=== PATIENT | female | born 1985 | race Caucasian/White ===

== ENCOUNTER 2017-04-23 07:53 | Emergency (ER) | payer OTHER ==
[~2017-04-23] VITALS: Ht 167.6 cm; Wt 113.4 kg
[2017-04-23] MEDS ORDERED: fentaNYL INJECTION 100 MCG/2 ML AMP IVP ONE ×3 (08:15→11:00)
[2017-04-23 08:18] LABS: BILIRUBIN,URINE NEGATIVE (NEGATIVE); CLARITY,URINE VERY CLOUDY; COLOR,URINE YELLOW; GLUCOSE, URINE (UA) NEGATIVE (NEGATIVE); KETONES,URINE NEGATIVE (NEGATIVE); LEUKOCYTE ESTERASE ,URINE 3+ (NEGATIVE); NITRITE,URINE NEGATIVE (NEGATIVE); PH,URINE 5 (5-9); PROTEIN,URINE 2+ (NEGATIVE); UROBILINOGEN,URINE NORMAL (NORMAL)
[2017-04-23] MEDS ORDERED: ONDANSETRON 4 MG/2 ML (SDV) Z0FRAN IVP ONE (08:30)
[2017-04-23 08:31] LABS: BACTERIA,URINE LARGE /HPF
[2017-04-23] MEDS ORDERED: NS IV 1000 ML 1,000 ML IV ONE (08:56)
[2017-04-23 09:00] LABS: ALANINE AMINOTRANSFERASE 23 U/L (0-55); ALBUMIN 4.1 GM/DL (3.2-4.5); ALKALINE PHOSPHATASE 55 U/L (40-136); BASOPHILS % (AUTO) 0 % (0-10); BILIRUBIN,TOTAL 0.8 MG/DL (0.1-1.0); BUN/CREATININE RATIO 16; CALCIUM 9.3 MG/DL (8.5-10.1); CARBON DIOXIDE 16 MMOL/L (21-32); CHLORIDE 107 MMOL/L (98-107); CREATININE SERUM 0.76 MG/DL (0.60-1.30); EOSINOPHILS # (AUTO) 0.1 10^3/uL (0.0-0.3); EOSINOPHILS % (AUTO) 1 % (0-10); GFR ESTIMATED > 60; GLUCOSE 116 MG/DL (70-105); HEMATOCRIT 39 % (35-52); HEMOGLOBIN 12.7 G/DL (11.5-16.0); LYMPHOCYTES # (AUTO) 2.8 X 10^3 (1.0-4.0); LYMPHOCYTES % (AUTO) 24 % (12-44); MEAN CORPUSCULAR HEMOGLOBIN 30 PG (25-34); MEAN CORPUSCULAR HGB CONC 33 G/DL (32-36); MEAN CORPUSCULAR VOLUME 91 FL (80-99); MEAN PLATELET VOLUME 9.6 FL (7.4-10.4); MONOCYTES # (AUTO) 0.5 X 10^3 (0.0-1.0); MONOCYTES % (AUTO) 4 % (0-12); NEUTROPHILS # (AUTO) 8.2 X 10^3 (1.8-7.8); NEUTROPHILS % (AUTO) 71 % (42-75); PLATELET COUNT 380 10^3/uL (130-400); POTASSIUM 3.6 MMOL/L (3.6-5.0); RED BLOOD COUNT 4.26 10^6/uL (4.35-5.85); RED CELL DISTRIBUTION WIDTH 13.8 % (10.0-14.5); SODIUM 138 MMOL/L (135-145); TOTAL PROTEIN 7.4 GM/DL (6.4-8.2); WHITE BLOOD COUNT 11.5 10^3/uL (4.3-11.0)
[2017-04-23 09:10] LABS: SMEAR SCAN COMMENT YES
[2017-04-23] MEDS ORDERED: KETOROLAC 30 MG/ML VIAL IVP ONE (09:30)
[2017-04-23] MEDS ORDERED: OXYC-197 PO (09:43)
[2017-04-23] MEDS ORDERED: B6 (09:43)
[2017-04-23] MEDS ORDERED: AZAT50TA16 PO (09:43)
[2017-04-23] MEDS ORDERED: K2-D3 PO (09:43)
[2017-04-23] MEDS ORDERED: [UNRECOGNIZED DRUG - OTHER] (09:43)
[2017-04-23] MEDS ORDERED: OMEP20TA33 PO (09:45)
[2017-04-23] MEDS ORDERED: CNC1KV IJ (09:45)
[2017-04-23] MEDS ORDERED: DIPH25CA79 PO (09:45)
--- NOTE | 2017-04-23 09:49 | ED General ---
General Chief Complaint: Back Problems Stated Complaint: LOWER BACK PAIN Nursing Triage Note: c/o worsening right flank pain. Pt reported had a recent CT 1.5-2 weeks ago at [facility] and was told she has a small kidney stone. Nursing Sepsis Screen: No Definite Risk Source of Information: Patient Exam Limitations: No Limitations History of Present Illness Time Seen by Provider: 08:10 Initial Comments This 31-year-old young lady presents to the emergency room with significant right flank pain. She states a CT performed about 2 weeks ago at [facility] in [place] demonstrated a right kidney stone. It was not obstructing at that time. She also reports having diarrhea, nausea without vomiting. She is afebrile. She does have a history of Crohn's disease as well. She had a history of abnormal urinalysis at one point in time and was sent to nephrology by her associate genetics professor. Her cnc mill set up operator is Dr. Faye, her associate genetics professor is Dr. Adryan DO and her primary care providers Dr. Moreno. She denies hematuria or dysuria. Allergies and Home Medications Allergies Coded Allergies: Iodine and Iodide Containing Produc (Verified Allergy, Unknown, 04/23/17) Sulfa (Sulfonamide Antibiotics) (Verified Allergy, Unknown, 04/23/17) amoxicillin (Verified Allergy, Unknown, 04/23/17) cephalexin (Verified Allergy, Unknown, 04/23/17) clindamycin (Verified Allergy, Unknown, 04/23/17) latex (Verified Allergy, Unknown, 04/23/17) morphine (Verified Allergy, Unknown, 04/23/17) neomycin (Verified Allergy, Unknown, 04/23/17) shellfish derived (Verified Allergy, Unknown, 04/23/17) Uncoded Allergies: paper tape (Allergy, Unknown, rash, 04/23/17) Home Medications Azathioprine 50 Mg Tablet, 50 MG PO DAILY, (Reported) Ciprofloxacin HCl 500 Mg Tablet, 500 MG PO BID, #20 Prescribed by: NASEEM SHAH on 04/23/17 1040 Cyanocobalamin 1,000 Mcg/Ml Inj, 1,000 MCG IJ monthly, (Reported) Diphenhydramine HCl 25 Mg Capsule, 25 MG PO PRN, (Reported) Omeprazole Magnesium 20 Mg Tablet.dr, 20 MG PO DAILY, (Reported) Ondansetron 4 Mg Tab.rapdis, 4 MG SL Q4H PRN for NAUSEA/VOMITING-1ST LINE, #10 Prescribed by: NASEEM SHAH on 04/23/17 1040 Oxycodone HCl/Acetaminophen 1 Each Tablet, 1 EACH PO QID, (Reported) [B6 ] , 50 MG DAILY, (Reported) [K2-D3] , 10,000 PO DAILY, (Reported) [loestrine FE 28] , DAILY, (Reported) Constitutional: no symptoms reported EENTM: no symptoms reported Respiratory: no symptoms reported Cardiovascular: no symptoms reported Gastrointestinal: see HPI Genitourinary: see HPI : No Musculoskeletal: no symptoms reported Skin: no symptoms reported Psychiatric/Neurological: No Symptoms Reported Hematologic/Lymphatic: No Symptoms Reported Immunological/Allergic: no symptoms reported Past Ybedqbb-Jmfbpd-Pepymb Hx Patient Social History Alcohol Use: Denies Use Recreational Drug Use: No Smoking Status: Never a Smoker Recent Foreign Travel: No Contact w/Someone Who Travel: No Recent Infectious Disease Expo: No Surgeries History of Surgeries: Yes (colectomy/ostomy bag) Surgeries: Abdominal, Appendectomy, Gallbladder, Tonsillectomy Respiratory History of Respiratory Disorde: No Cardiovascular History of Cardiac Disorders: No Neurological History of Neurological Disord: No Reproductive System : No Genitourinary History of Genitourinary Disor: Yes Genitourinary Disorders: Kidney Stones Gastrointestinal History of Gastrointestinal Di: Yes Gastrointestinal Disorders: Crohns Disease Musculoskeletal History of Musculoskeletal Dis: No Endocrine History of Endocrine Disorders: No (Vitamin B12 deficiency) HEENT History of HEENT Disorders: No Cancer History of Cancer: No Psychosocial History of Psychiatric Problem: No Integumentary History of Skin or Integumenta: No Physical Exam Vital Signs Vital Sign - Last 12Hours 04/23/17 07:53 Temp 99.1 Pulse 112 Resp 18 B/P (MAP) 124/78 (93) Pulse Ox 99 O2 Delivery Room Air Capillary Refill : Less Than 3 Seconds General Appearance: WD/WN, Mild Distress HEENT: PERRL/EOMI, Normal ENT Inspection, Pharynx Normal Neck: Normal Inspection Respiratory: Lungs Clear, Normal Breath Sounds, No Accessory Muscle Use, No Respiratory Distress Cardiovascular: Regular Rate, Rhythm, No Edema, No Murmur, Normal Peripheral Pulses Gastrointestinal: Normal Bowel Sounds, Soft, Tenderness (Mild right flank) Back: Normal Inspection, CVA Tenderness (R) Extremity: Normal Inspection, No Pedal Edema Neurologic/Psychiatric: Alert, Oriented x3, No Motor/Sensory Deficits, Normal Mood/Affect, form designer II-XII Norm as Tested Skin: Normal Color, Warm/Dry Progress/Results/Core Measures Suspected Sepsis Recent Fever Within 48 Hours: No Infection Criteria Present: None New/Unexplained Altered Menta: No Sepsis Screen: No Definite Risk Sepsis Diagnosis: SIRS Temperature:99.2 Pulse: 112 Respiratory Rate: 18 Blood Pressure 124 /78 Mean: 93 Results/Orders Lab Results My Orders Medications Given in ED Vital Signs/I&O Capillary Refill : Less Than 3 Seconds Blood Pressure Mean: 93 Progress Note #1: Time: 09:44 Progress Note Labs and UA have been reviewed. Patient appears to have urinary tract infection. She reports fentanyl wasn't sufficient for pain management. Toradol was added for further treatment of pain. Patient had received fentanyl for initial pain management along with Zofran for nausea and IV fluids. Records were requested from [facility] in [place]. CT scan was reviewed. She had a 1 mm nonobstructing stone in the right kidney at that time. I discussed options for further workup with the patient. I felt it was appropriate to offer CT scan at this point as it is important to know if an obstructing stone is contributing to her urinary tract infection. If a ureteral stone is not present, then CT could evaluate other causes of pain as well. After discussion of risks and benefits, patient elects to have the CT scan. Progress Note #2: Progress Note CT scan was reviewed. It appears the right kidney stone has now dropped into the ureter. Patient was given fentanyl for additional pain management. She was prescribed antibiotics and instructed to follow-up with a urologist. She completed a liter of IV fluids. Diagnostic Imaging Diagonstic Imaging: CT Plain Films/CT/US/NM/MRI: abdomen, pelvis Comments CT abdomen and pelvis viewed by me and report reviewed. See report below: NAME: ROLO ORTIZ [facility] REC#: [id number] PT STATUS: REG ER : 1985 PHYSICIAN: NASEEM WORRELL MD ADMIT DATE: 04/23/17/ER Signed Date of Exam: 04/23/17 CT ABD/PELVIS WO(KIDNEY STONE) PROCEDURE: CT urinary tract, rule out kidney stone. TECHNIQUE: Multiple contiguous axial images were obtained through the abdomen and pelvis without the use of intravenous contrast. INDICATION: Right flank pain FINDINGS: There is a tiny roughly 1.4 mm stone in the distal right ureter at the level of the UVJ. Urinary bladder is decompressed. This calculus results in only slight ureteral ectasia and minimal hydronephrosis. No additional intrarenal stone burden is found. The left kidney unobstructed and negative. Hepatic steatosis and previous cholecystectomy noted no pathological biliary dilatation. Spleen, adrenals and pancreas negative. Aorta is nonaneurysmal. There is no bowel obstruction. The appendix surgically absent. There is a right lower quadrant diverting ostomy. The uterus and adnexa unremarkable. No ascites/ IMPRESSION: Tiny 1.4 mm right ureteral stone at the level of the UVJ results in minimal upstream hydroureteronephrosis. No additional acute finding. Dictated by: Dictated on workstation # [id number] Dict: 04/23/17 1000 Trans: 04/23/17 1024 Interpreted by: LULY WHITNEY Electronically signed by: LULY WHITNEY 04/23/17 1024 Departure Impression Impression: Primary Impression: Right ureteral stone Additional Impressions: Urinary tract infection Qualified Codes: N39.0 - Urinary tract infection, site not specified Nausea Right sided abdominal pain Disposition: HOME, SELF-CARE Condition: Improved Departure-Patient Inst. Decision time for Depature: 10:30 Referrals: NO,LOCAL PHYSICIAN (PCP) Primary Care Physician Patient Instructions: Kidney Stones in Adults, Urinary Tract Infection, Adult ( DC) Add. Discharge Instructions: Drink plenty of clear liquids. Complete your antibiotic as prescribed. Follow- up with your primary care provider and/or a urologist as soon as possible. Call tomorrow morning to arrange follow-up. You may use your Percocet as previously prescribed for pain management. Use Zofran (ondansetron) as prescribed for nausea and vomiting. Strain your urine and bring any stones collected to your follow-up appointment. Return to care if symptoms worsen. All discharge instructions reviewed with patient and/or family. Voiced understanding. Scripts Ciprofloxacin HCl (Cipro) 500 Mg Tablet 500 MG PO BID, #20 TAB Prov: NASEEM WORRELL MD 04/23/17 Ondansetron (Zofran Odt) 4 Mg Tab.rapdis 4 MG SL Q4H Y for NAUSEA/VOMITING-1ST LINE, #10 TAB Prov: NASEEM WORRELL MD 04/23/17 Copy Copies To 1: ROBER MORENO MD, JOSHUA T MD Apr 23, 2017 09:49
--- NOTE | 2017-04-23 10:07 | Diagnostic Imaging Report ---
PROCEDURE: CT urinary tract, rule out kidney stone. TECHNIQUE: Multiple contiguous axial images were obtained through the abdomen and pelvis without the use of intravenous contrast. INDICATION: Right flank pain FINDINGS: There is a tiny roughly 1.4 mm stone in the distal right ureter at the level of the UVJ. Urinary bladder is decompressed. This calculus results in only slight ureteral ectasia and minimal hydronephrosis. No additional intrarenal stone burden is found. The left kidney unobstructed and negative. Hepatic steatosis and previous cholecystectomy noted no pathological biliary dilatation. Spleen, adrenals and pancreas negative. Aorta is nonaneurysmal. There is no bowel obstruction. The appendix surgically absent. There is a right lower quadrant diverting ostomy. The uterus and adnexa unremarkable. No ascites/ IMPRESSION: Tiny 1.4 mm right ureteral stone at the level of the UVJ results in minimal upstream hydroureteronephrosis. No additional acute finding. Dictated by: Dictated on workstation # [id number]
[2017-04-23] MEDS ORDERED: CIPR-225 PO (10:40)
[2017-04-23] MEDS ORDERED: ONDA4TAB8 SL (10:40)
--- NOTE | 2017-04-23 11:09 | Diagnostic Imaging Report ---
INDICATION: Right flank pain Minute subtle right hemipelvic calcification of around 1.3 mm transverse diameter is at the level of the tiny UVJ stone better visualized at earlier CT. There is a nonobstructive bowel gas pattern. IMPRESSION: Tiny right pelvic calcification is believed radiographically visualized but very subtle. Dictated by: Dictated on workstation # [id number]
[2017-04-23 11:35] VITALS: BP 126/72
== END 2017-04-23 11:35 | disposition home or self-care (01) ==
LOC: ER 07:56
DX: N20.1 Calculus of ureter (principal); N39.0 Urinary tract infection, site not specified; Z90.49 Acquired absence of other specified parts of digestive tract; Z90.89 Acquired absence of other organs; Z87.442 Personal history of urinary calculi
CPT/HCPCS: 36415; 74018; 74176; 80053; 81000; 84703; 85025; 87088

== ENCOUNTER → 2017-06-25 | Outpatient (CLI) | payer OTHER ==
[~2017-06-25] MED LIST: AZAT50TA16 PO; B6; CIPR-225 PO; CNC1KV IJ; DIPH25CA79 PO; K2-D3 PO; OMEP20TA33 PO; ONDA4TAB8 SL; OXYC-197 PO; [UNRECOGNIZED DRUG - OTHER]
--- NOTE | 2017-06-25 11:40 | Diagnostic Imaging Report ---
INDICATION: Pelvic pressure. TECHNIQUE: Transabdominal and transvaginal sonography was performed. FINDINGS: The uterus measures 7.4 x 3.5 x 3.4 cm. The endometrium is 5 mm in thickness. No uterine mass is identified. The right ovary measures 5.0 x 1.3 x 2.3 cm and the left ovary measures 6.3 x 2.7 x 3.2 cm. There is a simple cyst involving the left ovary measuring 3.4 x 3.2 x 1.9 cm. There is blood flow to both ovaries. No free fluid is seen. IMPRESSION: 3.4 cm left ovarian cyst. The study is otherwise unremarkable. Dictated by: Dictated on workstation # [id number]
== END ==
LOC: RAD 10:32
PROVIDERS: ATTEND Obstetrics & Gynecology
DX: N83.202 Unspecified ovarian cyst, left side (principal)
CPT/HCPCS: 76830; 76856

== ENCOUNTER → 2018-04-02 | Outpatient (CLI) | payer MEDICARE, OTHER ==
[~2018-04-02] MED LIST changes: -OXYC-197 PO; +OXYC1TAB87 PO
--- NOTE | 2018-04-02 18:12 | Diagnostic Imaging Report ---
EXAMINATION: Ultrasound of the left breast. INDICATION: Left breast mass. There are no prior studies available for comparison. At this time, the patient does complain of a palpable abnormality in the retroareolar region of the left breast. FINDINGS: In the area of concern, there is a well-defined 2.3 x 1.6 x 1.6 cm solid mass with a small amount of internal blood flow. In a patient of this age, I do suspect that this is a benign process such as a fibroadenoma. Even so, I would recommend that an ultrasound-guided biopsy be performed to establish a tissue diagnosis. Also, during the course of the exam, a small 1.0 x 0.5 x 0.8 cm benign-appearing cyst was identified in the 2:30 position of the breast approximately 5 cm from the nipple. There is no other abnormality identified. IMPRESSION: 1. There is a 2.3 x 1.6 x 1.6 cm solid mass in the area of the patient's palpable abnormality. This is most likely a benign process, but an ultrasound-guided biopsy would be recommended to exclude malignancy. 2. These results were discussed with Henrietta at Dr. Samaniego's office. ACR BI-RADS Category 4: Suspicious abnormality. Dictated by: Dictated on workstation # [id number]
== END ==
LOC: RAD 13:18
PROVIDERS: ATTEND Obstetrics & Gynecology
DX: N63.20 Unspecified lump in the left breast, unspecified quadrant (principal); N60.02 Solitary cyst of left breast
CPT/HCPCS: 76641

== ENCOUNTER → 2018-04-18 | Outpatient (CLI) | payer MEDICARE ==
[~2018-04-18] VITALS: Ht 162.6 cm; Wt 121.1 kg
[~2018-04-18] MED LIST changes: +LIDOCAINE 1% INJ 20 ML 20 ML VIAL INJ ONE; +LIDOCAINE 1% INJ 20 ML 20 ML VIAL ONE
--- NOTE | 2018-04-18 18:15 | Diagnostic Imaging Report ---
INDICATION: Left breast mass. Patient presents for ultrasound-guided biopsy. Patient was brought to the procedure room and placed on the table in the supine position. Ultrasound imaging of the left breast was performed to evaluate appropriate entry site. The skin of the outer left breast was prepped and draped in usual sterile fashion. Small amount of 1% lidocaine was utilized for local anesthesia. A 14-gauge Achieve needle was utilized. A total of 3 core biopsies through the macrolobulated solid mass at the 5 o'clock location of the left breast was performed. Marker clip was then deployed. Hemostasis was obtained using manual compression. Patient tolerated the procedure well and was sent for post procedure mammogram in satisfactory condition. IMPRESSION: Successful ultrasound-guided core biopsy of the left breast mass at the 5 o'clock location, as described. Pathology results are currently pending. Dictated by: Dictated on workstation # [id number]
--- NOTE | 2018-04-18 20:12 | Diagnostic Imaging Report ---
INDICATION: Left breast mass, status post ultrasound-guided biopsy. EXAMINATION: 2D unilateral left CC and ML views were obtained. FINDINGS: A localizer clip is located within the mass in the lower left breast status post recent biopsy. IMPRESSION: Localizer clip is located within the mass. Pathology results are pending. Dictated by: Dictated on workstation # [id number]
== END ==
LOC: RAD 09:38
PROVIDERS: ATTEND Obstetrics & Gynecology
DX: D24.2 Benign neoplasm of left breast (principal); N63.20 Unspecified lump in the left breast, unspecified quadrant; N60.02 Solitary cyst of left breast
CPT/HCPCS: 19083; 88305

== ENCOUNTER → 2018-06-04 | Outpatient (CLI) | payer BC ==
[~2018-06-04] MED LIST changes: -LIDOCAINE 1% INJ 20 ML 20 ML VIAL INJ ONE; -LIDOCAINE 1% INJ 20 ML 20 ML VIAL ONE
[2018-06-04 10:43] LABS: BASOPHILS % (AUTO) 0 % (0-10); EOSINOPHILS # (AUTO) 0.1 10^3/uL (0.0-0.3); EOSINOPHILS % (AUTO) 1 % (0-10); HEMATOCRIT 42 % (35-52); HEMOGLOBIN 13.6 G/DL (11.5-16.0); LYMPHOCYTES # (AUTO) 2.9 X 10^3 (1.0-4.0); LYMPHOCYTES % (AUTO) 32 % (12-44); MEAN CORPUSCULAR HEMOGLOBIN 30 PG (25-34); MEAN CORPUSCULAR HGB CONC 33 G/DL (32-36); MEAN CORPUSCULAR VOLUME 91 FL (80-99); MEAN PLATELET VOLUME 9.3 FL (7.4-10.4); MONOCYTES # (AUTO) 0.4 X 10^3 (0.0-1.0); MONOCYTES % (AUTO) 5 % (0-12); NEUTROPHILS # (AUTO) 5.5 X 10^3 (1.8-7.8); NEUTROPHILS % (AUTO) 61 % (42-75); PLATELET COUNT 371 10^3/uL (130-400); RED CELL DISTRIBUTION WIDTH 13.9 % (10.0-14.5); WHITE BLOOD COUNT 8.9 10^3/uL (4.3-11.0)
[2018-06-04 11:01] LABS: ALANINE AMINOTRANSFERASE 32 U/L (0-55); ALBUMIN 4.1 GM/DL (3.2-4.5); ALKALINE PHOSPHATASE 65 U/L (40-136); BILIRUBIN,TOTAL 0.6 MG/DL (0.1-1.0); BUN/CREATININE RATIO 16; CALCIUM 10.1 MG/DL (8.5-10.1); CARBON DIOXIDE 20 MMOL/L (21-32); CHLORIDE 108 MMOL/L (98-107); CREATININE SERUM 0.77 MG/DL (0.60-1.30); GFR ESTIMATED > 60; GLUCOSE 97 MG/DL (70-105); SODIUM 139 MMOL/L (135-145); TOTAL PROTEIN 7.4 GM/DL (6.4-8.2)
== END ==
LOC: LAB 10:14
PROVIDERS: ATTEND Internal Medicine Gastroenterology
DX: K50.90 Crohn's disease, unspecified, without complications (principal); R79.89 Other specified abnormal findings of blood chemistry
CPT/HCPCS: 36415; 80053; 85025

== ENCOUNTER → 2018-10-03 | Outpatient (CLI) | payer BC, MEDICARE ==
--- NOTE | 2018-10-03 12:02 | Diagnostic Imaging Report ---
EXAM: Ultrasound of the left breast, limited. INDICATION: Left breast mass FINDINGS: The previous left breast ultrasound exam performed on 04/02/2018 noted a 2.3 x 1.6 x 1.6 CM solid mass in the region of the patient's palpable abnormality in the retroareolar region of the left breast. This finding was subsequently biopsied on 04/18/2018 and the results of the biopsy revealed a benign fibroadenoma. The diagnostic mammogram prior to this study shows that the area in question appears stable. On this exam, that finding is again evident and does not appear to have changed adversely. There is a stereotactic clip within the central portion of the lesion. During the course of the study, a small 5 x 8 MM simple cyst is seen in the 2:30 position of the breast roughly 5 CM from the nipple. IMPRESSION: 1. The solid lesion in the retroareolar region of the left breast appears stable. A six-month followup ultrasound exam would be recommended for continued evaluation. ACR Category 3 ACR BI-RADS Category 3: Probably benign findings. Result letter will be mailed to the patient. Note: At least 10% of breast cancer is not imaged by mammography. Dictated by: Dictated on workstation # [id number]
--- NOTE | 2018-10-03 19:17 | Diagnostic Imaging Report ---
Unilateral diagnostic left mammogram. INDICATION: Left breast mass. The current study was also evaluated with a Computer Aided Detection (CAD) system. FINDINGS: The previous mammogram of 04/18/2018 noted a roughly 2 CM solid lesion in the 6 o'clock position of the left retroareolar region. There was a stereotactic clip within this lesion. 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 On this study that nodular density is again evident and does not appear to have changed significantly. The overall appearance of the left breast itself is stable. The fibroglandular tissue is heterogeneously dense. This does limit the sensitivity of this exam. There is no primary or secondary sign of malignancy noted. IMPRESSION: 1. The solid nodule in the retroareolar region of the left breast seen previously appears stable. There is no evidence for malignancy. 2. Ultrasound of left breast is pending for further study. ACR BI-RADS Category 0: Incomplete. (Needs additional imaging evaluation). Result letter will be mailed to the patient. Note: At least 10% of breast cancer is not imaged by mammography. Dictated by: Dictated on workstation # [id number]
== END ==
LOC: RAD 08:55
PROVIDERS: ATTEND Obstetrics & Gynecology
DX: N63.21 Unspecified lump in the left breast, upper outer quadrant (principal); N64.89 Other specified disorders of breast
CPT/HCPCS: 76642

== ENCOUNTER 2018-10-16 14:00 | Outpatient (CLI) | payer MEDICARE ==
[~2018-10-16] VITALS: Ht 162.6 cm; Wt 121.1 kg
[~2018-10-16 14:00] MED LIST changes: +MULT-141 PO
== END 2018-10-16 14:39 ==
LOC: PREOP 14:00
PROVIDERS: ATTEND Surgery
DX: Z01.818 Encounter for other preprocedural examination (principal)

== ENCOUNTER 2018-10-30 06:53 | Day surgery (SDC) | payer MEDICARE ==
[2018-10-30] VITALS (10 sets, daily range): BP systolic 13–138; BP diastolic 60–91
[~2018-10-30] VITALS: Ht 162.6 cm; Wt 121.1 kg
[2018-10-30] MEDS ORDERED: LACTATED RINGERS 1,000 ML IV PRN (07:07)
[2018-10-30] MEDS ORDERED: BUP/EPI 0.5% 1:200,000 (SENSORCAINE) 30 ML VIAL ONE (07:10)
[2018-10-30] MEDS ORDERED: LIDOCAINE PF 2% 5 ML (XYLOCAINE) VIAL ONE (07:12)
[2018-10-30] MEDS ORDERED: SEVOFLURANE (ULTANE) 15 ML INHAL SOLN ONE (07:12)
[2018-10-30] MEDS ORDERED: fentaNYL INJECTION 100 MCG/2 ML AMP ONE (07:12)
[2018-10-30] MEDS ORDERED: ONDANSETRON 4 MG/2 ML (SDV) Z0FRAN ONE ×2 (07:12→08:54)
[2018-10-30] MEDS ORDERED: proPOfol 200 MG/20 ML (DIPRIVAN) VIAL IV ONE (07:12)
[2018-10-30] MEDS ORDERED: MIDAZOLAM 2 MG/2 ML (VERSED) VIAL ONE (07:13)
[2018-10-30] MEDS ORDERED: FAMOTIDINE 20MG/2ML IV (PEPCID) ONE (07:20)
--- OUTSIDE RECORDS SUMMARY | 2018-10-30 07:29 | XMS REPORT | Clinical Summary ---
Author Author Admin, QIE Organization [facility] Address Unknown Phone Unavailable Allergies, Adverse Reactions, Alerts Allergy Name Reaction Description Start Date Severity Status Provider PAPER TAPE blisters Moderate Active Georgie Mehta SULFUR rash Moderate Active Merlene Elder SULFA hives Moderate Active Merlene Elder SHELLFISH rash, anaphylaxsis Critical Active Merlene Elder NEOMYCIN rash Mild Active Merlene Elder MORPHINE rash, itching Moderate Active Merlene Elder LATEX rash Mild Active Merlene Elder KEFLEX rash Mild Active Merlene Elder IODINE per Dr. Santana not advised to have iodine again Critical Active Merlene Elder CLINDAMYCIN HCL rash Mild Active Merlene Elder AMOXICILLIN hives, rash Moderate Active Merlene Elder Conditions or Problems Problem Name Problem Code Onset Date Status Entry Date Provider Comment Standard Description Annotate Pelvic Pain-Female Active Erma Das MD Medication List Medication Instructions Start Date Stop Date Generic Name NDC Status Provider Patient Instruction PRILOSEC OTC 20 MG ORAL TABLET DELAYED RELEASE daily OMEPRAZOLE MAGNESIUM 52482438506 Active Georgie Mehta Active DIPHENHYDRAMINE HCL 50 MG ORAL CAPSULE 1/2 tab daily DIPHENHYDRAMINE HCL 78191021244 Active Georgie Mehta Active CYANOCOBALAMIN 1000 MCG/ML INJECTION SOLUTION monthly CYANOCOBALAMIN 45348270435 Active Georgie Mehta Active SODIUM BICARBONATE 650 MG ORAL TABLET 1 po BID SODIUM BICARBONATE 93077632115 Active Georgie Mehta Active OXYCODONE-ACETAMINOPHEN 5-325 MG ORAL TABLET 3-4 tabs daily prn OXYCODONE-ACETAMINOPHEN 16015227639 Active Georgie Mehta Active B-6 50 MG ORAL TABLET 1 daily PYRIDOXINE HCL 87590608447 Active Georgie Mehta Active LO LOESTRIN FE TABLET 1 daily NORETHIN-ETH ESTRAD-FE BIPHAS TABS 41646121126 Active Georgie Mehta Active IMURAN 50 MG ORAL TABLET 1 tab daily AZATHIOPRINE 76014977310 Active Georgie Mehta Active Advance Directives Directive Description Start Date PERMISSION TO SHARE Vital Signs Date Name Value Unit Range Description blood pressure, diastolic, repeated by physician 96 BP diaz blood pressure, diastolic 96 mm[Hg] BP diaz blood pressure, systolic, repeated by physician 140 BP sys blood pressure, systolic 140 mm[Hg] BP sys height E&M 64 [in_us] Bdy height pulse rate E&M 100 /min Heart rate temperature E&M 99.3 [degF] Body temperature weight E&M 269 [lb_av] Weight Measured Diagnostic Results Date Name Value Unit Range Description Office Visit: new patient - Chemistry RBC, urine, dipstick 2+ protein, urine, by sulfasalicylic acid negative bilirubin, by Ictotest, urine negative Office Visit: new patient - Urinalysis urinalysis, routine Clean Catch nitrite, urine, semiquantitative negative urobilinogen, urine, semiquantitative (dipstick) 0.2 leukocyte esterase, urine, by dipstick trace appearance, urine clear urine color yellow specific gravity, urine 1.030 pH, urine, semiquantitative 5.0 protein, urine, semiquantitative (dipstick) negative glucose, urine, semiquantitative negative ketones, urine, by test strip negative bilirubin, urine negative Encounters Code Encounter Date Provider Facility [id number] Level 3 New Patient 19:38:15 CDT Erma Das MD [facility]
--- OUTSIDE RECORDS SUMMARY | 2018-10-30 07:29 | XMS REPORT | Clinical Summary ---
Author Author Admin, QIE Organization [facility] Address Unknown Phone Unavailable Allergies, Adverse Reactions, [...] ORAL TABLET DELAYED RELEASE daily OMEPRAZOLE MAGNESIUM 93082319592 Active Georgie Mehta Active DIPHENHYDRAMINE HCL 50 MG ORAL CAPSULE 1/2 tab daily DIPHENHYDRAMINE HCL 00668190244 Active Georgie Mehta Active CYANOCOBALAMIN 1000 MCG/ML INJECTION SOLUTION monthly CYANOCOBALAMIN 53503895971 Active Georgie Mehta Active SODIUM BICARBONATE 650 MG ORAL TABLET 1 po BID SODIUM BICARBONATE 85639621051 Active Georgie Mehta Active OXYCODONE-ACETAMINOPHEN 5-325 MG ORAL TABLET 3-4 tabs daily prn OXYCODONE-ACETAMINOPHEN 95437251277 Active Georgie Mehta Active B-6 50 MG ORAL TABLET 1 daily PYRIDOXINE HCL 12389696746 Active Georgie Mehta Active LO LOESTRIN FE TABLET 1 daily NORETHIN-ETH ESTRAD-FE BIPHAS TABS 36622368090 Active Georgie Mehta Active IMURAN 50 MG ORAL TABLET 1 tab daily AZATHIOPRINE 56094358398 Active Georgie Mehta Active Advance Directives Directive [...] negative Encounters Code Encounter Date Provider Facility CPT-62302 Level 3 New Patient 19:38:15 CDT Erma Das MD [facility]
[2018-10-30] MEDS ORDERED: FAMOTIDINE 20MG/2ML IV (PEPCID) IV ONE (07:30)
--- OUTSIDE RECORDS SUMMARY | 2018-10-30 07:30 | XMS REPORT | Clinical Summary ---
Author Author Admin, QIE Organization [facility] Address Unknown Phone Unavailable Allergies, Adverse [...] ORAL TABLET DELAYED RELEASE daily OMEPRAZOLE MAGNESIUM 82837749986 Active Georgie Mehta Active DIPHENHYDRAMINE HCL 50 MG ORAL CAPSULE 1/2 tab daily DIPHENHYDRAMINE HCL 10588702800 Active Georgie Mehta Active CYANOCOBALAMIN 1000 MCG/ML INJECTION SOLUTION monthly CYANOCOBALAMIN 69493436107 Active Georgie Mehta Active SODIUM BICARBONATE 650 MG ORAL TABLET 1 po BID SODIUM BICARBONATE 64535837666 Active Georgie Mehta Active OXYCODONE-ACETAMINOPHEN 5-325 MG ORAL TABLET 3-4 tabs daily prn OXYCODONE-ACETAMINOPHEN 56900058832 Active Georgie Mehta Active B-6 50 MG ORAL TABLET 1 daily PYRIDOXINE HCL 36452933151 Active Georgie Fontainevaez Active LO LOESTRIN FE TABLET 1 daily NORETHIN-ETH ESTRAD-FE BIPHAS TABS 71676424461 Active Georgie Mehta Active IMURAN 50 MG ORAL TABLET 1 tab daily AZATHIOPRINE 33281753468 Active Georgie Fontainevaez Active Vital Signs Date Name Value Unit Range [...] negative Encounters Code Encounter Date Provider Facility CPT-16102 Level 3 New Patient 19:38:15 CDT Erma Das MD [facility]
--- OUTSIDE RECORDS SUMMARY | 2018-10-30 07:30 | XMS REPORT | Clinical Summary ---
Author Author Admin, QIE Organization [facility] Address Unknown Phone Unavailable Allergies, [...] Merlene Elder AMOXICILLIN hives, rash Moderate Active Merleen Elder Conditions or Problems Problem Name Problem Code Onset Date Status Entry Date Provider Comment Standard Description Annotate Pelvic Pain-Female Active Erma Das MD Medication List Medication Instructions Start Date Stop Date Generic Name NDC Status Provider Patient Instruction PRILOSEC OTC 20 MG ORAL TABLET DELAYED RELEASE daily OMEPRAZOLE MAGNESIUM 68139719698 Active Georgie Mehta Active DIPHENHYDRAMINE HCL 50 MG ORAL CAPSULE 1/2 tab daily DIPHENHYDRAMINE HCL 09122665910 Active Georgie Mehta Active CYANOCOBALAMIN 1000 MCG/ML INJECTION SOLUTION monthly CYANOCOBALAMIN 56385101561 Active Georgie Mehta Active SODIUM BICARBONATE 650 MG ORAL TABLET 1 po BID SODIUM BICARBONATE 01461267125 Active Georgie Mehta Active OXYCODONE-ACETAMINOPHEN 5-325 MG ORAL TABLET 3-4 tabs daily prn OXYCODONE-ACETAMINOPHEN 20296218607 Active Georgie Mehta Active B-6 50 MG ORAL TABLET 1 daily PYRIDOXINE HCL 81271304633 Active Georgie Mehta Active LO LOESTRIN FE TABLET 1 daily NORETHIN-ETH ESTRAD-FE BIPHAS TABS 23369787801 Active Georgie Mehta Active IMURAN 50 MG ORAL TABLET 1 tab daily AZATHIOPRINE 34439146687 Active Georgie Mehta Active Advance Directives Directive [...] negative Encounters Code Encounter Date Provider Facility CPT-09178 Level 3 New Patient 19:38:15 CDT Erma Das MD [facility]
--- OUTSIDE RECORDS SUMMARY | 2018-10-30 07:30 | XMS REPORT | Clinical Summary ---
Author Author Admin, QIE Organization [facility] Address Unknown Phone Unavailable Allergies, Adverse Reactions, Alerts Allergy Name Reaction Description Start Date Severity Status Provider SULFUR rash Moderate Active Merlene Elder SULFA [...] Entry Date Provider Comment Standard Description Annotate Problems Unknown Active Medication List Medication Instructions Start Date Stop Date Generic Name NDC Status Provider Patient Instruction No Drug Therapy Prescribed - none known did ask Merlene Elder
--- OUTSIDE RECORDS SUMMARY | 2018-10-30 07:30 | XMS REPORT | Clinical Summary ---
Author Author Admin, QIE Organization [facility] Address Unknown Phone Unavailable Allergies, Adverse [...] ORAL TABLET DELAYED RELEASE daily OMEPRAZOLE MAGNESIUM 31165343468 Active Georgie Mehta Active DIPHENHYDRAMINE HCL 50 MG ORAL CAPSULE 1/2 tab daily DIPHENHYDRAMINE HCL 95234736314 Active Georgie Mehta Active CYANOCOBALAMIN 1000 MCG/ML INJECTION SOLUTION monthly CYANOCOBALAMIN 96565148863 Active Georgie Mehta Active SODIUM BICARBONATE 650 MG ORAL TABLET 1 po BID SODIUM BICARBONATE 60774569685 Active Georgie Mehta Active OXYCODONE-ACETAMINOPHEN 5-325 MG ORAL TABLET 3-4 tabs daily prn OXYCODONE-ACETAMINOPHEN 60048439265 Active Georgie Mehta Active B-6 50 MG ORAL TABLET 1 daily PYRIDOXINE HCL 90110041308 Active Georgie Mehta Active LO LOESTRIN FE TABLET 1 daily NORETHIN-ETH ESTRAD-FE BIPHAS TABS 34247582065 Active Georgie Mehta Active IMURAN 50 MG ORAL TABLET 1 tab daily AZATHIOPRINE 72467411715 Active Georgie Mehta Active Advance Directives Directive [...] negative Encounters Code Encounter Date Provider Facility [id number] Level 3 New Patient 19:38:15 CDT Erma Das MD [facility]
--- OUTSIDE RECORDS SUMMARY | 2018-10-30 07:30 | XMS REPORT | Clinical Summary ---
Author Author Admin, QIE Organization [facility] Address Unknown Phone Unavailable Allergies, Adverse Reactions, [...] ORAL TABLET DELAYED RELEASE daily OMEPRAZOLE MAGNESIUM 51105373667 Active Georgie Mehta Active DIPHENHYDRAMINE HCL 50 MG ORAL CAPSULE 1/2 tab daily DIPHENHYDRAMINE HCL 96450903689 Active Georgie Mehta Active CYANOCOBALAMIN 1000 MCG/ML INJECTION SOLUTION monthly CYANOCOBALAMIN 27919809074 Active Georgie Mehta Active SODIUM BICARBONATE 650 MG ORAL TABLET 1 po BID SODIUM BICARBONATE 39294775458 Active Georgie Mehta Active OXYCODONE-ACETAMINOPHEN 5-325 MG ORAL TABLET 3-4 tabs daily prn OXYCODONE-ACETAMINOPHEN 66187521317 Active Georgie Mehta Active B-6 50 MG ORAL TABLET 1 daily PYRIDOXINE HCL 95170414369 Active Georgie Mehta Active LO LOESTRIN FE TABLET 1 daily NORETHIN-ETH ESTRAD-FE BIPHAS TABS 92863175341 Active Georgie Mehta Active IMURAN 50 MG ORAL TABLET 1 tab daily AZATHIOPRINE 58917939440 Active Georgie Mehta Active Advance Directives Directive [...] negative Encounters Code Encounter Date Provider Facility CPT-45361 Level 3 New Patient 19:38:15 CDT Erma Das MD [facility]
--- OUTSIDE RECORDS SUMMARY | 2018-10-30 07:30 | XMS REPORT | Clinical Summary ---
Author Author Admin, QIE Organization [facility] Address Unknown Phone Unavailable Allergies, Adverse [...] ORAL TABLET DELAYED RELEASE daily OMEPRAZOLE MAGNESIUM 49137141336 Active Georgie Mehta Active DIPHENHYDRAMINE HCL 50 MG ORAL CAPSULE 1/2 tab daily DIPHENHYDRAMINE HCL 68600747424 Active Georgie Mehta Active CYANOCOBALAMIN 1000 MCG/ML INJECTION SOLUTION monthly CYANOCOBALAMIN 23565030815 Active Georgie Mehta Active SODIUM BICARBONATE 650 MG ORAL TABLET 1 po BID SODIUM BICARBONATE 43444007524 Active Georgie Mehta Active OXYCODONE-ACETAMINOPHEN 5-325 MG ORAL TABLET 3-4 tabs daily prn OXYCODONE-ACETAMINOPHEN 35348993198 Active Georgie Mehta Active B-6 50 MG ORAL TABLET 1 daily PYRIDOXINE HCL 86884570629 Active Georgie Mehta Active LO LOESTRIN FE TABLET 1 daily NORETHIN-ETH ESTRAD-FE BIPHAS TABS 40574183704 Active Georgie Mehta Active IMURAN 50 MG ORAL TABLET 1 tab daily AZATHIOPRINE 15697665363 Active Georgie Mehta Active Advance Directives Directive [...] negative Encounters Code Encounter Date Provider Facility CPT-62773 Level 3 New Patient 19:38:15 CDT Erma Das MD [facility]
--- OUTSIDE RECORDS SUMMARY | 2018-10-30 07:31 | XMS REPORT | Continuity of Care Document ---
Author Organization Unknown Address Unknown Allergies Active Description Code Type Severity Reaction Onset Reported/Identified Relationship to Patient Clinical Status Yes amoxicillin [id number] Drug Allergy Unknown N/A 04/23/2017 Yes cephalexin [id number] Drug Allergy Unknown N/A 04/23/2017 Yes clindamycin [id number] Drug Allergy Unknown N/A 04/23/2017 Yes Iodine and Iodide Containing Produc [id number] Drug Allergy Unknown N/A 04/23/2017 Yes latex [id number] Drug Allergy Unknown N/A 04/23/2017 Yes morphine [id number] Drug Allergy Unknown N/A 04/23/2017 Yes neomycin [id number] Drug Allergy Unknown N/A 04/23/2017 Yes paper tape paper tape Unknown rash 04/23/2017 Yes shellfish derived [id number] Drug Allergy Unknown N/A 04/23/2017 Yes Sulfa (Sulfonamide Antibiotics) [id number] Drug Allergy Unknown N/A 04/23/2017 Medications There is no data. Problems Date Dx Coded Attending Type Code Diagnosis Diagnosed By 04/23/2017 GM MANNING, NASEEM Greene Ot N20.1 CALCULUS OF URETER 04/23/2017 NASEEM WORRELL MD, Ot N39.0 URINARY TRACT INFECTION, SITE NOT SPECIF 04/23/2017 NASEEM WORRELL MD, Ot R10.9 UNSPECIFIED ABDOMINAL PAIN 04/23/2017 NASEEM WORRELL MD, Ot Z87.442 PERSONAL HISTORY OF URINARY CALCULI 04/23/2017 NASEEM WORRELL MD, Ot Z90.49 ACQUIRED ABSENCE OF OTHER SPECIFIED PART 04/23/2017 NASEEM WORRELL MD, Ot Z90.89 ACQUIRED ABSENCE OF OTHER ORGANS 06/26/2017 ALEXANDRA FORMAN DO Ot N83.202 UNSPECIFIED OVARIAN CYST, LEFT SIDE 07/11/2017 ALEXANDRA FORMAN DO Ot N83.202 UNSPECIFIED OVARIAN CYST, LEFT SIDE 02/06/2018 Thiago MANNING, Erma Parks R10.2 Pelvic Pain-Female 04/02/2018 FENECH DO, ALEXANDRA S Ot N83.202 UNSPECIFIED OVARIAN CYST, LEFT SIDE 04/04/2018 FENECH DO, ALEXANDRA S Ot N60.02 SOLITARY CYST OF LEFT BREAST 04/04/2018 FENECH DO, ALEXANDRA S Ot N63.20 UNSPECIFIED LUMP IN THE LEFT BREAST, UNS 04/12/2018 FENECH DO, ALEXANDRA S Ot N60.02 SOLITARY CYST OF LEFT BREAST 04/12/2018 FENECH DO, ALEXANDRA S Ot N63.20 UNSPECIFIED LUMP IN THE LEFT BREAST, UNS 04/18/2018 FENECH DO, ALEXANDRA S Ot N60.02 SOLITARY CYST OF LEFT BREAST 04/18/2018 FENECH DO, ALEXANDRA S Ot N60.02 SOLITARY CYST OF LEFT BREAST 04/18/2018 FENECH DO, ALEXANDRA S Ot N63.20 UNSPECIFIED LUMP IN THE LEFT BREAST, UNS 05/07/2018 FENECH DO, ALEXANDRA S Ot D24.2 BENIGN NEOPLASM OF LEFT BREAST 05/07/2018 FENECH DO, ALEXANDRA S Ot N60.02 SOLITARY CYST OF LEFT BREAST 05/07/2018 FENECH DO, ALEXANDRA S Ot N63.20 UNSPECIFIED LUMP IN THE LEFT BREAST, UNS 05/17/2018 FENECH DO, ALEXANDRA S Ot D24.2 BENIGN NEOPLASM OF LEFT BREAST 05/17/2018 FENECH DO, ALEXANDRA S Ot N60.02 SOLITARY CYST OF LEFT BREAST 05/17/2018 FENECH DO, ALEXANDRA S Ot N63.20 UNSPECIFIED LUMP IN THE LEFT BREAST, UNS 06/05/2018 RONEY MACK DO Ot K50.90 CROHN'S DISEASE, UNSPECIFIED, WITHOUT CO 06/05/2018 RONEY MACK DO Ot R79.89 OTHER SPECIFIED ABNORMAL FINDINGS OF BLO 06/05/2018 RONEY MACK DO Ot K50.90 CROHN'S DISEASE, UNSPECIFIED, WITHOUT CO 06/05/2018 NATABARONEY GUTHRIE DO Ot R79.89 OTHER SPECIFIED ABNORMAL FINDINGS OF BLO 06/20/2018 NATABARONEY GUTHRIE DO Ot K50.90 CROHN'S DISEASE, UNSPECIFIED, WITHOUT CO 06/20/2018 NATABARONEY GUTHRIE DO Ot R79.89 OTHER SPECIFIED ABNORMAL FINDINGS OF BLO 07/18/2018 DEFFENBAUGH DO, RONEY Sloan Ot K50.90 CROHN'S DISEASE, UNSPECIFIED, WITHOUT CO 07/18/2018 MARTINA DORONEY Ot R79.89 OTHER SPECIFIED ABNORMAL FINDINGS OF BLO 08/15/2018 FENECH DO, ALEXANDRA S Ot N83.202 UNSPECIFIED OVARIAN CYST, LEFT SIDE 08/15/2018 FENECH DO, ALEXANDRA S Ot N60.02 SOLITARY CYST OF LEFT BREAST 08/15/2018 FENECH DO, ALEXANDRA S Ot N63.20 UNSPECIFIED LUMP IN THE LEFT BREAST, UNS 08/15/2018 FENECH DO, ALEXANDRA S Ot D24.2 BENIGN NEOPLASM OF LEFT BREAST 08/15/2018 FENECH DO, ALEXANDRA S Ot N60.02 SOLITARY CYST OF LEFT BREAST 08/15/2018 FENECH DO, ALEXANDRA S Ot N63.20 UNSPECIFIED LUMP IN THE LEFT BREAST, UNS 08/15/2018 NATABAJERRI DORONEY Ot K50.90 CROHN'S DISEASE, UNSPECIFIED, WITHOUT CO 08/15/2018 NATABAJERRI DORONEY Ot R79.89 OTHER SPECIFIED ABNORMAL FINDINGS OF BLO 08/15/2018 FENECH DO, ALEXANDRA S Ot N83.202 UNSPECIFIED OVARIAN CYST, LEFT SIDE 08/15/2018 FENECH DO, ALEXANDRA S Ot N60.02 SOLITARY CYST OF LEFT BREAST 08/15/2018 FENECH DO, ALEXANDRA S Ot N63.20 UNSPECIFIED LUMP IN THE LEFT BREAST, UNS 08/15/2018 FENECH DO, ALEXANDRA S Ot D24.2 BENIGN NEOPLASM OF LEFT BREAST 08/15/2018 FENECH DO, ALEXANDRA S Ot N60.02 SOLITARY CYST OF LEFT BREAST 08/15/2018 FENECH DO, ALEXANDRA S Ot N63.20 UNSPECIFIED LUMP IN THE LEFT BREAST, UNS 08/15/2018 NATABAJERRI DORONEY Ot K50.90 CROHN'S DISEASE, UNSPECIFIED, WITHOUT CO 08/15/2018 NATABAJERRI DORONEY Ot R79.89 OTHER SPECIFIED ABNORMAL FINDINGS OF BLO 08/16/2018 NATABAJERRI DORONEY Ot K50.90 CROHN'S DISEASE, UNSPECIFIED, WITHOUT CO 08/16/2018 YANNIFENBAJERRI DORONEY Ot R79.89 OTHER SPECIFIED ABNORMAL FINDINGS OF BLO 10/01/2018 FENECH DO, ALEXANDRA S Ot N83.202 UNSPECIFIED OVARIAN CYST, LEFT SIDE 10/01/2018 FENECH DO, ALEXANDRA S Ot N60.02 SOLITARY CYST OF LEFT BREAST 10/01/2018 FENECH DO, ALEXANDRA S Ot N63.20 UNSPECIFIED LUMP IN THE LEFT BREAST, UNS 10/01/2018 FENECH DO, ALEXANDRA S Ot D24.2 BENIGN NEOPLASM OF LEFT BREAST 10/01/2018 FENECH DO, ALEXANDRA S Ot N60.02 SOLITARY CYST OF LEFT BREAST 10/01/2018 FENECH DO, ALEXANDRA S Ot N63.20 UNSPECIFIED LUMP IN THE LEFT BREAST, UNS 10/01/2018 DEFFENBAUGH DORONEY Ot K50.90 CROHN'S DISEASE, UNSPECIFIED, WITHOUT CO 10/01/2018 YANNIFENBAJERRI DORONEY Ot R79.89 OTHER SPECIFIED ABNORMAL FINDINGS OF BLO 10/01/2018 FENECH DO, ALEXANDRA S Ot D24.2 BENIGN NEOPLASM OF LEFT BREAST 10/01/2018 FENECH DO, ALEXANDRA S Ot D24.2 BENIGN NEOPLASM OF LEFT BREAST 10/01/2018 FENECH DO, ALEXANDRA S Ot N83.202 UNSPECIFIED OVARIAN CYST, LEFT SIDE 10/01/2018 FENECH DO, ALEXANDRA S Ot N60.02 SOLITARY CYST OF LEFT BREAST 10/01/2018 FENECH DO, ALEXANDRA S Ot N63.20 UNSPECIFIED LUMP IN THE LEFT BREAST, UNS 10/01/2018 FENECH DO, ALEXANDRA S Ot D24.2 BENIGN NEOPLASM OF LEFT BREAST 10/01/2018 FENECH DO, ALEXANDRA S Ot N60.02 SOLITARY CYST OF LEFT BREAST 10/01/2018 FENECH DO, ALEXANDRA S Ot N63.20 UNSPECIFIED LUMP IN THE LEFT BREAST, UNS 10/01/2018 DEFFENBARONEY GUTHRIE DO Ot K50.90 CROHN'S DISEASE, UNSPECIFIED, WITHOUT CO 10/01/2018 MARTINA DORONEY Ot R79.89 OTHER SPECIFIED ABNORMAL FINDINGS OF BLO 10/01/2018 FENECH DO, ALEXANDRA S Ot D24.2 BENIGN NEOPLASM OF LEFT BREAST 10/01/2018 FENECH DO, ALEXANDRA S Ot D24.2 BENIGN NEOPLASM OF LEFT BREAST 10/02/2018 FENECH DO, ALEXANDRA S Ot D24.2 BENIGN NEOPLASM OF LEFT BREAST 10/03/2018 FENECH DO, ALEXANDRA S Ot N83.202 UNSPECIFIED OVARIAN CYST, LEFT SIDE 10/03/2018 ALEXANDRA FORMAN DO Ot N60.02 SOLITARY CYST OF LEFT BREAST 10/03/2018 ALEXANDRA FORMAN DO Ot N63.20 UNSPECIFIED LUMP IN THE LEFT BREAST, UNS 10/03/2018 ALEXANDRA FORMAN DO Ot D24.2 BENIGN NEOPLASM OF LEFT BREAST 10/03/2018 ALEXANDRA FORMAN DO Ot N60.02 SOLITARY CYST OF LEFT BREAST 10/03/2018 DASIA BETTS, ALEXANDRA Ulloa Ot N63.20 UNSPECIFIED LUMP IN THE LEFT BREAST, UNS 10/03/2018 RONEY MACK DO, Ot K50.90 CROHN'S DISEASE, UNSPECIFIED, WITHOUT CO 10/03/2018 RONEY MACK DO Ot R79.89 OTHER SPECIFIED ABNORMAL FINDINGS OF BLO 10/03/2018 ALEXANDRA FORMAN DO Ot D24.2 BENIGN NEOPLASM OF LEFT BREAST 10/03/2018 ALEXANDRA FORMAN DO Artemio Ot D24.2 BENIGN NEOPLASM OF LEFT BREAST 10/16/2018 TALYA GARY DO Ot Z01.818 ENCOUNTER FOR OTHER PREPROCEDURAL EXAMIN 10/16/2018 TALYA GARY DO Ot Z01.818 ENCOUNTER FOR OTHER PREPROCEDURAL EXAMIN 10/22/2018 TALYA GARY DO Ot Z01.818 ENCOUNTER FOR OTHER PREPROCEDURAL EXAMIN Procedures There is no data. Results Test Result Range Complete urinalysis with reflex to culture - 04/23/17 08:08 Urine color determination YELLOW NRG Urine clarity determination VERY CLOUDY NRG Urine pH measurement by test strip 5 5-9 Specific gravity of urine by test strip 1.030 1.016-1.022 Urine protein assay by test strip, semi-quantitative 2+ NEGATIVE Urine glucose detection by automated test strip NEGATIVE NEGATIVE Erythrocytes detection in urine sediment by light microscopy 3+ NEGATIVE Urine ketones detection by automated test strip NEGATIVE NEGATIVE Urine nitrite detection by test strip NEGATIVE NEGATIVE Urine total bilirubin detection by test strip NEGATIVE NEGATIVE Urine urobilinogen measurement by automated test strip (mass/volume) NORMAL NORMAL Urine leukocyte esterase detection by dipstick 3+ NEGATIVE Automated urine sediment erythrocyte count by microscopy (number/high power field) NONE NRG Automated urine sediment leukocyte count by microscopy (number/high power field) [HPF] NRG Bacteria detection in urine sediment by light microscopy LARGE NRG Crystals detection in urine sediment by light microscopy NONE NRG Casts detection in urine sediment by light microscopy NONE NRG Mucus detection in urine sediment by light microscopy MODERATE NRG Complete urinalysis with reflex to culture YES NR Bacterial urine culture - 04/23/17 08:08 URINE CULTURE RESULTS MORE THAN 3 [facility] Comprehensive metabolic panel - 04/23/17 08:30 Serum or plasma sodium measurement (moles/volume) 138 mmol/L 135-145 Serum or plasma potassium measurement (moles/volume) 3.6 mmol/L 3.6-5.0 Serum or plasma chloride measurement (moles/volume) 107 mmol/L 98-107 Carbon dioxide 16 mmol/L 21-32 Serum or plasma anion gap determination (moles/volume) 15 mmol/L 5-14 Serum or plasma urea nitrogen measurement (mass/volume) 12 mg/dL 7-18 Serum or plasma creatinine measurement (mass/volume) 0.76 mg/dL 0.60-1.30 Serum or plasma urea nitrogen/creatinine mass ratio 16 NRG Serum or plasma creatinine measurement with calculation of estimated glomerular filtration rate > NRG Serum or plasma glucose measurement (mass/volume) 116 mg/dL 70-105 Serum or plasma calcium measurement (mass/volume) 9.3 mg/dL 8.5-10.1 Serum or plasma total bilirubin measurement (mass/volume) 0.8 mg/dL 0.1-1.0 Serum or plasma alkaline phosphatase measurement (enzymatic activity/volume) 55 U/L 40-136 Serum or plasma aspartate aminotransferase measurement (enzymatic activity/volume) 27 U/L 5-34 Serum or plasma alanine aminotransferase measurement (enzymatic activity/volume) 23 U/L 0-55 Serum or plasma protein measurement (mass/volume) 7.4 g/dL 6.4-8.2 Serum or plasma albumin measurement (mass/volume) 4.1 g/dL 3.2-4.5 Serum or plasma choriogonadotropin ( test) detection - 04/23/17 08:30 Serum or plasma choriogonadotropin ( test) detection NEGATIVE NEGATIVE Complete blood count (CBC) with automated white blood cell (WBC) differential - 04/23/17 08:30 Blood leukocytes automated count (number/volume) 11.5 10*3/uL 4.3-11.0 Blood erythrocytes automated count (number/volume) 4.26 10*6/uL 4.35-5.85 Venous blood hemoglobin measurement (mass/volume) 12.7 g/dL 11.5-16.0 Blood hematocrit (volume fraction) 39 % 35-52 Automated erythrocyte mean corpuscular volume 91 [foz_us] 80-99 Automated erythrocyte mean corpuscular hemoglobin (mass per erythrocyte) 30 pg 25-34 Automated erythrocyte mean corpuscular hemoglobin concentration measurement (mass/volume) 33 g/dL 32-36 Automated erythrocyte distribution width ratio 13.8 % 10.0- 14.5 Automated blood platelet count (count/volume) 380 10*3/uL 130-400 Automated blood platelet mean volume measurement 9.6 [foz_us] 7.4-10.4 Automated blood neutrophils/100 leukocytes 71 % 42-75 Automated blood lymphocytes/100 leukocytes 24 % 12-44 Blood monocytes/100 leukocytes 4 % 0-12 Automated blood eosinophils/100 leukocytes 1 % 0-10 Automated blood basophils/100 leukocytes 0 % 0-10 Blood neutrophils automated count (number/volume) 8.2 10*3 1.8-7.8 Blood lymphocytes automated count (number/volume) 2.8 10*3 1.0-4.0 Blood monocytes automated count (number/volume) 0.5 10*3 0.0- 1.0 Automated eosinophil count 0.1 10*3/uL 0.0-0.3 Automated blood basophil count (count/volume) 0.0 10*3/uL 0.0-0.1 Blood blood smear finding identification by light microscopy YES NRG Complete blood count (CBC) with automated white blood cell (WBC) differential - 06/04/18 10:23 Blood leukocytes automated count (number/volume) 8.9 10*3/uL 4.3-11.0 Blood erythrocytes automated count (number/volume) 4.59 10*6/uL 4.35-5.85 Venous blood hemoglobin measurement (mass/volume) 13.6 g/dL 11.5-16.0 Blood hematocrit (volume fraction) 42 % 35-52 Automated erythrocyte mean corpuscular volume 91 [foz_us] 80-99 Automated erythrocyte mean corpuscular hemoglobin (mass per erythrocyte) 30 pg 25-34 Automated erythrocyte mean corpuscular hemoglobin concentration measurement (mass/volume) 33 g/dL 32-36 Automated erythrocyte distribution width ratio 13.9 % 10.0- 14.5 Automated blood platelet count (count/volume) 371 10*3/uL 130-400 Automated blood platelet mean volume measurement 9.3 [foz_us] 7.4-10.4 Automated blood neutrophils/100 leukocytes 61 % 42-75 Automated blood lymphocytes/100 leukocytes 32 % 12-44 Blood monocytes/100 leukocytes 5 % 0-12 Automated blood eosinophils/100 leukocytes 1 % 0-10 Automated blood basophils/100 leukocytes 0 % 0-10 Blood neutrophils automated count (number/volume) 5.5 10*3 1.8-7.8 Blood lymphocytes automated count (number/volume) 2.9 10*3 1.0-4.0 Blood monocytes automated count (number/volume) 0.4 10*3 0.0- 1.0 Automated eosinophil count 0.1 10*3/uL 0.0-0.3 Automated blood basophil count (count/volume) 0.0 10*3/uL 0.0-0.1 Comprehensive metabolic panel - 06/04/18 10:23 Serum or plasma sodium measurement (moles/volume) 139 mmol/L 135-145 Serum or plasma potassium measurement (moles/volume) 4.0 mmol/L 3.6-5.0 Serum or plasma chloride measurement (moles/volume) 108 mmol/L 98-107 Carbon dioxide 20 mmol/L 21-32 Serum or plasma anion gap determination (moles/volume) 11 mmol/L 5-14 Serum or plasma urea nitrogen measurement (mass/volume) 12 mg/dL 7-18 Serum or plasma creatinine measurement (mass/volume) 0.77 mg/dL 0.60-1.30 Serum or plasma urea nitrogen/creatinine mass ratio 16 NRG Serum or plasma creatinine measurement with calculation of estimated glomerular filtration rate > NRG Serum or plasma glucose measurement (mass/volume) 97 mg/dL 70-105 Serum or plasma calcium measurement (mass/volume) 10.1 mg/dL 8.5-10.1 Serum or plasma total bilirubin measurement (mass/volume) 0.6 mg/dL 0.1-1.0 Serum or plasma alkaline phosphatase measurement (enzymatic activity/volume) 65 U/L 40-136 Serum or plasma aspartate aminotransferase measurement (enzymatic activity/volume) 40 U/L 5-34 Serum or plasma alanine aminotransferase measurement (enzymatic activity/volume) 32 U/L 0-55 Serum or plasma protein measurement (mass/volume) 7.4 g/dL 6.4-8.2 Serum or plasma albumin measurement (mass/volume) 4.1 g/dL 3.2-4.5 CALCIUM CORRECTED 10.0 mg/dL 8.5-10.1 Encounters ACCT No. Visit Date/Time Discharge Status Pt. Type Provider Facility Loc./Unit Complaint [id number] 06/13/2018 19:41:00 ACT Unknown Erma Das MD [id number] 10/23/2018 09:05:00 10/23/2018 23:59:59 CLS Preadmit TALYA GARY DO [facility] SDC LEFT BREAST MASS [id number] 10/21/2018 14:14:00 10/21/2018 23:59:59 CLS Preadmit ALEXANDRA FORMAN DO [facility] REHAB CHRONIC BACK PAIN; MASTALGIA [id number] 10/16/2018 14:00:00 10/16/2018 14:39:00 DIS Outpatient TALYA GARY DO [facility] PREOP LEFT BREAST MASS [id number] 10/03/2018 08:55:00 10/03/2018 23:59:59 CLS Outpatient ALEXANDRA FORMAN DO [facility] RAD BREAST LUMP OF L SIDE [id number] 06/04/2018 10:14:00 06/04/2018 23:59:59 CLS Outpatient RONEY MACK DO [facility] LAB R79.89,K50.90 [id number] 04/18/2018 09:38:00 04/18/2018 23:59:59 CLS Outpatient ALEXANDRA FORMAN DO [facility] RAD CYST OF BREAST [id number] 04/02/2018 13:18:00 04/02/2018 23:59:59 CLS Outpatient ALEXANDRA FORMAN DO [facility] RAD CYST [id number] 06/20/2017 11:53:00 06/20/2017 23:59:59 CLS Outpatient ALEXANDRA FORMAN DO [facility] RAD R10.2 PELVIC PRESSURE [id number] 04/23/2017 07:56:00 04/23/2017 11:35:00 DIS Emergency GM MANNING, NASEEM Velasco [facility] ER LOWER BACK PAIN
[2018-10-30] MEDS ORDERED: DEXAMETHASONE 10 MG/ML (DECADRON) 1 ML VIAL ONE (07:32)
--- NOTE | 2018-10-30 08:20 | Progress Note-Pre Operative ---
Pre-Operative Progress Note H&P Reviewed The H&P was reviewed, patient examined and no changes noted. Time Seen by Provider: 08:10 Date H&P Reviewed: Oct 30, 2018 Time H&P Reviewed: 08:09 Pre-Operative Diagnosis: Left breast mass TALYA GARY DO Oct 30, 2018 08:20
[2018-10-30] MEDS ORDERED: ROCURONIUM 10 MG/ML 5 ML SYRINGE IV ONE (08:26)
[2018-10-30] MEDS ORDERED: SUCCINYLCHOLINE INJ 100 MG/5 ML SYR ONE (08:26)
[2018-10-30] MEDS ORDERED: NEOSTIGMINE 3 MG/3 ML VIAL ONE (09:06)
[2018-10-30] MEDS ORDERED: GLYCOPYRROLATE 0.2 MG/ML (ROBINUL) 2 ML VIAL ONE (09:06)
[2018-10-30] MEDS ORDERED: ONDANSETRON 4 MG/2 ML (SDV) Z0FRAN IVP PRN (09:15)
[2018-10-30] MEDS ORDERED: fentaNYL INJECTION 100 MCG/2 ML AMP IVP ONE (09:15)
[2018-10-30] MEDS ORDERED: PROMETHAZINE INJ 25 MG/ML (PHENERGAN) AMP IVP ONE (09:15)
[2018-10-30] MEDS: PROMETHAZINE INJ 25 MG/ML (PHENERGAN) AMP ONE ×2 (09:22→11:45)
--- NOTE | 2018-10-30 09:32 | Progress Note-Post Operative ---
Post-Operative Progess Note Surgeon (s)/Gravure Press Set Up Operator (s) Surgeon TALYA GARY DO Gravure Press Set Up Operator: none Pre-Operative Diagnosis Left breast mass Post-Operative Diagnosis same pending path Procedure & Operative Findings Date of Procedure 10/30/18 Procedure Performed/Findings Exc left breast mass Anesthesia Type Iv sedation by REACHER Estimated Blood Loss Estimated blood loss (mL): scant Specimens/Packing Specimens Removed left breast mass TALYA GARY DO Oct 30, 2018 09:32
--- NOTE | 2018-10-30 09:34 | Discharge Inst-Surgical ---
Discharge Inst-Surgical Depart Medication/Instructions New, Converted or Re-Newed RX: Other (Pt has home pain meds) Patient Instructions Follow up Appt: Make appointment for 1 week. [phone] Instructions: No lifting greater than 20 pounds. No strenuous activity. May shower in 24 hours, no tub bath or soaking. Use incentive spirometer at home as directed. No Smoking Skin/Wound Care: May remove bandages in am. You need to leave the Dermabond on incision it will fall off on it's own. Symptoms to Report: Appetite Changes, Extremity Discoloration, Numbness/Tingling, Swelling Increased, Bleeding Excessive, Eyesight Changes, Pain Increased, Urine Color Change, Constipation(Persistent), Fever over 101 degree F, Pain/Pressure in chest, Urinating Difficulty, Cough Up/Vomit Blood, Heart Beat Irreg/Pounding, Pain/Pressure in jaw, Cramps in feet or legs, Lightheadedness, Pain/Pressure in shoulder, Diarrhea(Persistent), Memory Changes Suddenly, Questions/Concerns, Weight gain consecutive days, Dizziness/Fainting, Nausea/Vomiting, Shortness of Breath, Weight gain over 2 pounds If questions or concerns contact your physician Or seek help at emergency department. Activity Activity as Tolerated: Yes Activity Instructions: Avoid Stress to Incision Driving Instructions: No Driving/Refer to Dr. Adams Discharge Diet: No Restrictions Diet After 24 Hours: Clear Liquid if Nauseous If Any Problems/Questions/Issu: Contact Your Physician, Go to Emergency Room Skin/Wound Care Infection Signs and Symptoms: Increased Redness, Foul Odor of Wound, Increased Drainage, Skin Itchy or Has a Rash, Increased Swelling, Temperature Above 101 F Wound Care Comment: Wear tight sports bra, for 24 hours a day next 7 days Bathing Instructions: Shower Operative Area Clean and Dry: You May Remove Bandage (in am) Ice Pack: Ice On and Off Site (if it helps with pain) TALYA GARY DO Oct 30, 2018 09:34
--- NOTE | 2018-10-30 10:03 | NUR ---
PT ARRIVED FROM PACU AWAKE, ALERT, VSS, AND C/O PAIN 10/30. CALLED DR. GARY AT 1007 AND RECIEVED VERBAL TELEPHONE ORDER TO GIVE PT PERCOCET, SAME DOSE SHE TAKES AT HOME, ONE TIME.
[2018-10-30] MEDS ORDERED: oxyCODONE/APAP 5/325MG (PERCOCET 5) TABLET PO ONE (10:15)
--- NOTE | 2018-10-30 12:46 | Anesthesia-General Post-Op ---
General Patient Condition Mental Status/LOC: Same as Preop Cardiovascular: Satisfactory Nausea/Vomiting: Absent Respiratory: Satisfactory Pain: Controlled Complications: Absent Post Op Complications Complications None Follow Up Care/Instructions Patient Instructions None needed. Anesthesia/Patient Condition Patient Condition Patient is doing well, no complaints, stable vital signs, no apparent adverse anesthesia problems. No complications reported per nursing. NICHOLAS PÉREZ CRNA Oct 30, 2018 12:46
--- NOTE | 2018-10-30 14:54 | OPERATIVE REPORT ---
DATE OF SERVICE: 10/30/2018 PREOPERATIVE DIAGNOSIS: Left breast mass. POSTOPERATIVE DIAGNOSIS: Left breast mass, pending pathology. PROCEDURE: Excision of left breast mass. SURGEON: John Lorenzo DO [facility] ADMINISTRATOR: None. ANESTHESIA: General endotracheal tube. SPECIMEN: Left breast mass. BLOOD LOSS: Scant. FLUIDS: Per anesthesia. POSTOPERATIVE CONDITION: Stable. INDICATION FOR PROCEDURE: The patient is a 32-year-old female, who had a left breast mass. 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 She is having a little bit of pain and did not want to get ultrasounds every 6 months to follow this and which she wanted removed. FINDINGS: The patient had left breast mass removed and sent to pathology. PROCEDURE NOTE: After informed consent was obtained, the patient was brought to the operating room, placed on the table in supine position. She was sterilely prepped and draped in normal fashion. Local lidocaine was then used to infiltrate the areola, right on the areolar line from about 7 o'clock to 4 o'clock and then around the area in a regional block, then made an incision with #15 blade, carried down through the skin into subcutaneous tissue and deepened down to the subcutaneous tissue with Bovie electrocautery, then dissecting down, could feel the lump, there was breast mass. Able to dissect around with Bovie electrocautery and remove it completely. I did put a short stitch, which was at the very top portion closest to the skin and then a long stitch superiorly and then at 12o'clock and then 2 stitches at the 3 o'clock position for orientation. Copiously irrigated with sterile water. Hemostasis was obtained using Bovie electrocautery. There was no bleeding at the end and then elected to close the incision with 4-0 undyed Monocryl 3 interrupted subcuticular stitches. Area was cleaned and dried. Dermabond placed and then pressure fluff dressing and the patient was then transferred to recovery room in stable condition. Sponge, instrument and needle counts were correct at the end of the case. Job ID: [id number] DocumentID: [id number] Dictated Date: 10/30/2018 10:57:08 Water Restoration Technician Date: 10/30/2018 14:53:52 Dictated By: JOHN LORENZO DO
== END 2018-10-30 11:00 | disposition home or self-care (01) ==
LOC: SDC 06:53
PROVIDERS: ATTEND Surgery
DX: D24.2 Benign neoplasm of left breast (principal); K50.90 Crohn's disease, unspecified, without complications; E28.2 Polycystic ovarian syndrome; E53.8 Deficiency of other specified B group vitamins; G62.9 Polyneuropathy, unspecified; E66.01 Morbid (severe) obesity due to excess calories; Z11.2 Encounter for screening for other bacterial diseases; Z88.1 Allergy status to other antibiotic agents; Z88.5 Allergy status to narcotic agent; Z88.2 Allergy status to sulfonamides; Z91.048 Other nonmedicinal substance allergy status; Z93.2 Ileostomy status; Z87.442 Personal history of urinary calculi; Z68.42 Body mass index [BMI] 45.0-49.9, adult; Z79.899 Other long term (current) drug therapy
CPT/HCPCS: 84703; 87081

== ENCOUNTER → 2018-12-10 | Outpatient (CLI) | payer MEDICARE ==
--- NOTE | 2018-12-10 12:52 | Diagnostic Imaging Report ---
CLINICAL INDICATION: Patient with nausea and vomiting and abdominal pain. COMPARISON: None. PROCEDURE: Solid Gastric emptying study After oral ingestion of 1.1 millicuries of technetium 99M sulfur colloid, mixed with scrambled egg, sequential imaging of the abdomen is performed. Computer analysis is performed and gastric emptying curves are calculated. FINDINGS: There is gastric emptying demonstrated with sequential imaging. The residual retained gastric activity: 1 hour: 46% (less than 30% equals rapid and greater than 90% equals delayed) 2 hours: 19% (greater than 60% represents abnormally delayed) 3 hours: 3% (greater than 30% represents abnormally delayed) 4 hours: 1% (greater than 10% represents abnormally delayed) IMPRESSION: Normal gastric emptying study. Dictated by: Dictated on workstation # [id number]
== END ==
LOC: CARD 08:16
PROVIDERS: ATTEND Internal Medicine Gastroenterology
DX: R10.9 Unspecified abdominal pain (principal); R11.2 Nausea with vomiting, unspecified
CPT/HCPCS: 78264

== ENCOUNTER 2019-01-28 11:15 | Outpatient (RCR) | payer BC, MEDICARE | END 2019-02-24 | disposition home or self-care (01) | PROVIDERS: ATTEND Obstetrics & Gynecology | DX: M54.5 Low back pain (principal); M79.7 Fibromyalgia; E28.2 Polycystic ovarian syndrome; N39.3 Stress incontinence (female) (male); M54.2 Cervicalgia; Z93.2 Ileostomy status ==

== ENCOUNTER → 2019-03-03 | Outpatient (CLI) | payer MEDICARE ==
--- NOTE | 2019-03-03 11:02 | Diagnostic Imaging Report ---
PROCEDURE: CT abdomen and pelvis without contrast. TECHNIQUE: Multiple contiguous axial images were obtained through the abdomen and pelvis without the use of intravenous contrast. Auto Exposure Controls were utilized during the CT exam to meet ALARA standards for radiation dose reduction. INDICATION: Flank pain, history of kidney stones, hematuria. COMPARISON: 04/23/2017 FINDINGS: Mild lingular scarring. Otherwise, the visualized lung bases are clear. Diffusely decreased density of the liver without focal hepatic mass. However, evaluation for hepatic mass lesions is limited secondary to lack of intravenous contrast. The unenhanced spleen, adrenal glands, and pancreas are unremarkable. Cholecystectomy. The bilateral kidneys and ureters are unremarkable. Previously noted sub-2 mm calcification within the right ureterovesicular junction is no longer visualized. No aneurysmal dilatation of the abdominal aorta. The urinary bladder is decompressed, therefore not well evaluated. The uterus and adnexal structures are unremarkable for age. Right lower quadrant ostomy is again identified without significant parastomal hernia. The colon is predominantly absent. No bowel obstruction or pneumatosis. No significant adenopathy, free air, or free fluid within the abdomen or pelvis. No acute osseous abnormality. IMPRESSION: 1. No evidence of renal or ureteral calculi with interval clearance of previously noted tiny right ureterovesicular junction calculus. 2. Postsurgical changes within the bowel without bowel obstruction. 3. Very minimal fatty infiltration of the liver. 4. Additional findings as above. Dictated by: Dictated on workstation # [id number]
== END ==
LOC: RAD FS 10:07
PROVIDERS: ATTEND Nurse Practitioner Family
DX: K76.89 Other specified diseases of liver (principal); R10.9 Unspecified abdominal pain; R31.9 Hematuria, unspecified; Z90.49 Acquired absence of other specified parts of digestive tract; Z98.890 Other specified postprocedural states; Z87.442 Personal history of urinary calculi
CPT/HCPCS: 74176

== ENCOUNTER 2019-03-08 23:49 | Emergency (ER) | payer MEDICARE ==
[~2019-03-08] VITALS: Ht 162 cm; Wt 121.4 kg
[2019-03-09 00:12] LABS: CLARITY,URINE CLOUDY; COLOR,URINE YELLOW; GLUCOSE, URINE (UA) NEGATIVE (NEGATIVE); KETONES,URINE TRACE (NEGATIVE); NITRITE,URINE NEGATIVE (NEGATIVE); PH,URINE 5.5 (5-9); PROTEIN,URINE NEGATIVE (NEGATIVE)
[2019-03-09 00:13] LABS: LEUKOCYTE ESTERASE ,URINE TRACE (NEGATIVE)
[2019-03-09 00:17] LABS: BACTERIA,URINE FEW /HPF; SQUAMOUS EPITHELIAL CELL,UR 25-50 /HPF; WBC,URINE 0-2 /HPF
[2019-03-09] MEDS ORDERED: NS IV 1000 ML 1,000 ML IV SCH (00:30)
--- NOTE | 2019-03-09 00:31 | ED General ---
General Chief Complaint: General Problems/Pain Stated Complaint: CRAMPING; FEVER; NAUS; SUPRAPUBIC PN; URINARY FREQ Nursing Triage Note: PT. HAS MULTIPLE COMPLAINTS THIS TRIP TO THE ER. PT. REPORTED SHE HAS CHRONS DISEASE, IS HAVING NAUSEA, LEG, TOES, AND HAND PAIN WELL LOWER ABD. PAIN. PT. RATING HER PAIN A 5 ON THE 1-10 SCALE. PT. REPORTED SHE TOOK BENADRYL,, ZOFRAN AND PERCOCET PRIOR TO COMING TO THE ER. PT. FELT SHE MAY BE DEHYDRATED. PT. REPORTED SHE SAW HER DOCTOR LAST WEEK THINKING SHE HAD A UTI BUT WAS NOT PLACED ON ANY ANTIBIOTICS. PT. REPORTED SHE HAD A CT DONE AND IT WAS NORMAL. Nursing Sepsis Screen: No Definite Risk Source of Information: Patient History of Present Illness Date Seen by Provider: Mar 09, 2019 Time Seen by Provider: 00:02 Initial Comments 33-year-old female presenting with complaints of possible cramping in her extremities and concern for dehydration. She has been having urinary frequency in the last 24 hours and has a history of Crohn's with prior total colectomy. She states that it is easy for her to get dehydrated and she has had similar symptoms in the past when this is happening. She also is concerned she might be having the start of a UTI. She has been running low-grade fevers at home up to 100.8 Fahrenheit. She had taken some Tylenol for dose 6 hours ago and is not fe brile here in the ED. She has some chronic nausea that she takes Zofran for from her GI doctor. She has some low abdominal cramping. She just had a CT scan of her abdomen and pelvis done on the that did not show any acute abnormality. She has not had any vomiting and has not noticed any change in her output of the ileostomy. Allergies and Home Medications Allergies Coded Allergies: Iodine and Iodide Containing Produc (Verified Allergy, Unknown, 10/30/18) Sulfa (Sulfonamide Antibiotics) (Verified Allergy, Unknown, 10/30/18) amoxicillin (Verified Allergy, Unknown, 10/30/18) cephalexin (Verified Allergy, Unknown, 10/30/18) clindamycin (Verified Allergy, Unknown, 10/30/18) latex (Verified Allergy, Unknown, 10/30/18) morphine (Verified Allergy, Unknown, 10/30/18) neomycin (Verified Allergy, Unknown, 10/30/18) shellfish derived (Verified Allergy, Unknown, 10/30/18) Uncoded Allergies: paper tape (Allergy, Unknown, rash, 04/23/17) Home Medications Azathioprine 50 Mg Tablet, 50 MG PO DAILY, (Reported) Ciprofloxacin HCl 500 Mg Tablet, 500 MG PO BID Prescribed by: YOANA GARRISON on 03/09/19 0153 Cyanocobalamin 1,000 Mcg/Ml Inj, 1,000 MCG IJ monthly, (Reported) Diphenhydramine HCl 25 Mg Capsule, 25 MG PO TID PRN for allergies, (Reported) Multivit with Calcium,Iron,Min 1 Each Tablet, 1 EACH PO DAILY, (Reported) Omeprazole Magnesium 20 Mg Tablet.dr, 20 MG PO DAILY, (Reported) Oxycodone HCl/Acetaminophen 1 Each Tablet, 1 EACH PO QID PRN for PAIN-MILD, (Reported) [B6 ] , 50 MG DAILY, (Reported) [K2-D3] , 10,000 PO weekly, (Reported) [loestrine FE 28] , DAILY, (Reported) Patient Home Medication List Home Medication List Reviewed: Yes Review of Systems Review of Systems Constitutional: No chills; fever, malaise EENTM: no symptoms reported Respiratory: no symptoms reported Cardiovascular: palpitations Gastrointestinal: abdominal pain (low abdominal cramping), nausea; No vomiting Genitourinary: dysuria, frequency Musculoskeletal: muscle pain (diffuse muscle cramping in her extremities), muscle cramps (diffuse muscle cramping in her extremities) Skin: no symptoms reported Psychiatric/Neurological: No Symptoms Reported Past Xycyhbj-Geajxa-Qyvzch Hx Past Med/Social Hx: Reviewed Nursing Past Med/Soc Hx Patient Social History Recent Foreign Travel: No Contact w/Someone Who Travel: No Recent Infectious Disease Expo: No Recent Hopitalizations: No Physical Abuse: No Sexual Abuse: No Mistreated: No Fear: No Seasonal Allergies Seasonal Allergies: No Past Medical History Surgeries: Yes (colectomy/ostomy bag) Abdominal, Adenoidectomy, Appendectomy, Gallbladder, Tonsillectomy Respiratory: No Cardiac: No Neurological: No Genitourinary: Yes Kidney Stones Gastrointestinal: Yes Crohns Disease Musculoskeletal: Yes Fibromyalgia Endocrine: No (Vitamin B12 deficiency) HEENT: No Cancer: No Psychosocial: No Integumentary: No Blood Disorders: Yes (anemia) Physical Exam Vital Signs Vital Signs - First Documented 03/09/19 00:03 Temp 36.5 Pulse 133 Resp 18 B/P (MAP) 158/110 (126) Pulse Ox 98 O2 Delivery Room Air Capillary Refill : Less Than 3 Seconds Height, Weight, BMI Height: 5'4.00" Weight: 267lbs. 0.0oz. 121.904337ut; 46.00 BMI Method:Stated General Appearance: No Apparent Distress, WD/WN HEENT: PERRL/EOMI, Normal ENT Inspection, Pharynx Normal Neck: Full Range of Motion, Normal Inspection, Non Tender, Supple Respiratory: Chest Non Tender, Lungs Clear, Normal Breath Sounds, No Accessory Muscle Use, No Respiratory Distress Cardiovascular: Normal Peripheral Pulses, Tachycardia Gastrointestinal: Normal Bowel Sounds, No Pulsatile Mass, Soft, Tenderness (mild tenderness in her lower abdomen. Ileostomy in place with normal brown colored stool in the ileostomy bag) Back: No CVA Tenderness, No Vertebral Tenderness Extremity: Normal Capillary Refill, Normal Inspection, Normal Range of Motion, No Pedal Edema Neurologic/Psychiatric: Alert, Oriented x3, No Motor/Sensory Deficits Skin: Normal Color, Warm/Dry Progress/Results/Core Measures Suspected Sepsis Recent Fever Within 48 Hours: No Infection Criteria Present: None New/Unexplained Altered Menta: No Sepsis Screen: No Definite Risk SIRS Temperature: Pulse: 133 Respiratory Rate: 18 Laboratory Tests 03/09/19 00:35: White Blood Count 12.5H Blood Pressure 158 /110 Mean: 126 Laboratory Tests 03/09/19 00:35: Creatinine 0.76, Platelet Count 418H, Total Bilirubin 0.5 Results/Orders Lab Results Laboratory Tests Test 03/09/19 00:08 03/09/19 00:11 03/09/19 00:35 Range/Units Urine Color YELLOW Urine Clarity CLOUDY Urine pH 5.5 5-9 Urine Specific [place] >=1.030 1.016-1.022 Urine Protein NEGATIVE NEGATIVE Urine Glucose (UA) NEGATIVE NEGATIVE Urine Ketones TRACE H NEGATIVE Urine Nitrite NEGATIVE NEGATIVE Urine Bilirubin IMTIAZ NEGATIVE Urine Urobilinogen 0.2 < = 1.0 MG/DL Urine Leukocyte Esterase TRACE NEGATIVE Urine RBC (Auto) 1+ H NEGATIVE Urine RBC 2-5 H /HPF Urine WBC 0-2 /HPF Urine Squamous Epithelial Cells 25-50 H /HPF Urine Crystals NONE /LPF Urine Bacteria FEW H /HPF Urine Casts NONE /LPF Urine Mucus MODERATE H /LPF Urine Culture Indicated YES Urine Test NEGATIVE NEGATIVE White Blood Count 12.5 H 4.3-11.0 10^3/uL Red Blood Count 4.41 4.35-5.85 10^6/uL Hemoglobin 12.9 11.5-16.0 G/DL Hematocrit 40 35-52 % Mean Corpuscular Volume 90 80-99 FL Mean Corpuscular Hemoglobin 29 25-34 PG Mean Corpuscular Hemoglobin Concent 33 32-36 G/DL Red Cell Distribution Width 13.8 10.0-14.5 % Platelet Count 418 H 130-400 10^3/uL Mean Platelet Volume 9.2 7.4-10.4 FL Neutrophils (%) (Auto) 64 42-75 % Lymphocytes (%) (Auto) 29 12-44 % Monocytes (%) (Auto) 5 0-12 % Eosinophils (%) (Auto) 1 0-10 % Basophils (%) (Auto) 0 0-10 % Neutrophils # (Auto) 8.0 H 1.8-7.8 X 10^3 Lymphocytes # (Auto) 3.7 1.0-4.0 X 10^3 Monocytes # (Auto) 0.7 0.0-1.0 X 10^3 Eosinophils # (Auto) 0.1 0.0-0.3 10^3/uL Basophils # (Auto) 0.0 0.0-0.1 10^3/uL Sodium Level 139 135-145 MMOL/L Potassium Level 3.7 3.6-5.0 MMOL/L Chloride Level 101 98-107 MMOL/L Carbon Dioxide Level 21 21-32 MMOL/L Anion Gap 17 H 5-14 MMOL/L Blood Urea Nitrogen 11 7-18 MG/DL Creatinine 0.76 0.60-1.30 MG/DL Estimat Glomerular Filtration Rate > 60 BUN/Creatinine Ratio 14 Glucose Level 107 H 70-105 MG/DL Calcium Level 9.7 8.5-10.1 MG/DL Corrected Calcium 9.6 8.5-10.1 MG/DL Magnesium Level 1.9 1.6-2.4 MG/DL Total Bilirubin 0.5 0.1-1.0 MG/DL Aspartate Amino Transf (AST/SGOT) 28 5-34 U/L Alanine Aminotransferase (ALT/SGPT) 19 0-55 U/L Alkaline Phosphatase 55 40-136 U/L Total Protein 7.3 6.4-8.2 GM/DL Albumin 4.1 3.2-4.5 GM/DL My Orders Orders - YOANA GARRISON MD Ua Culture If Indicated (03/09/19 00:08) Hcg,Qualitative Urine (03/09/19 00:11) Urine Culture (03/09/19 00:08) Comprehensive Metabolic Panel (03/09/19 00:23) Ed Iv/Invasive Line Start (03/09/19 00:23) Cbc With Automated Diff (03/09/19 00:23) Magnesium (03/09/19 00:23) Ns Iv 1000 Ml (Sodium Chloride 0.9%) (03/09/19 00:30) Ciprofloxacin Iv 400mg/200ml (Cipro Iv S (03/09/19 01:00) Ondansetron Injection (Zofran Injectio (03/09/19 01:03) Ns Iv 1000 Ml (Sodium Chloride 0.9%) (03/09/19 01:03) Medications Given in ED Current Medications Medications Dose Ordered Sig/Adry Route Start Time Stop Time Status Last Admin Dose Admin Ciprofloxacin/ Dextrose 200 ml @ 200 mls/hr ONCE ONCE IV 03/09/19 01:00 03/09/19 01:59 03/09/19 01:07 200 MLS/HR Vital Signs/I&O 03/09/19 03/09/19 00:03 01:46 Temp 36.5 36.4 Pulse 133 92 Resp 18 16 B/P (MAP) 158/110 (126) 121/70 Pulse Ox 98 99 O2 Delivery Room Air Room Air Capillary Refill : Less Than 3 Seconds 2 Blood Pressure Mean: 126 POS Progress Note #1: Progress Note Urinalysis to streets elevated specific gravity of greater than 1.030 and trace amount of Leukocyte esterase and trace of bacteria. Will treat with antibiotics and administer IV fluids. Will check basic electrolytes and blood count Progress Note #2: Progress Note Labs show a mild elevation of her white blood cell count. Her electrolytes all appear stable without acute significant abnormality. Her kidney function and liver enzymes are normal. Patient reports that she is feeling better after the first liter of fluids but saw some mild cramping in her feet. Will give a first dose of IV antibiotics of Cipro to treat for her UTI and an additional liter of normal saline here. She also had some mild nausea starting so a dose of Zofran was given to help with settling her stomach. Progress Note #3: Progress Note After the second liter of fluids and the antibiotics and finish the patient reports that she was feeling much better. Her vital signs had significantly improved. She was tolerating oral intake here in the ED. Will discharge on Cipro for 5 days for possible early UTI and encourage her to follow-up through the inic for continued concerns. Encouraged to push fluids and electrolyte drinks at home. Departure Impression Primary Impression: Dehydration Additional Impression: Cystitis with hematuria Disposition: HOME, SELF-CARE Condition: Improved Departure-Patient Inst. Decision time for Depature: 01:50 Referrals: THERESA DORANTES MD (PCP) Primary Care Physician BHARTI MARTINEZ APRN (Family) Primary Care Physician Patient Instructions: Urinary Tract Infection, Adult (DC), Dehydration, Adult (DC) Add. Discharge Instructions: Continue to push fluids and rest. Follow up with clinic for continued concerns Take the full course of antibiotics to treat for UTI All discharge instructions reviewed with patient and/or family. Voiced understanding. Scripts Ciprofloxacin HCl (Ciprofloxacin HCl) 500 Mg Tablet 500 MG PO BID for UTI for 5 Days, #10 TAB 0 Refills Prov: YOANA GARRISON MD 03/09/19 YOANA GARRISON MD Mar 09, 2019 00:31 POS
[2019-03-09 00:43] LABS: BASOPHILS % (AUTO) 0 % (0-10); EOSINOPHILS % (AUTO) 1 % (0-10); HEMATOCRIT 40 % (35-52); HEMOGLOBIN 12.9 G/DL (11.5-16.0); LYMPHOCYTES % (AUTO) 29 % (12-44); MEAN CORPUSCULAR HEMOGLOBIN 29 PG (25-34); MEAN CORPUSCULAR HGB CONC 33 G/DL (32-36); MEAN CORPUSCULAR VOLUME 90 FL (80-99); MEAN PLATELET VOLUME 9.2 FL (7.4-10.4); MONOCYTES % (AUTO) 5 % (0-12); NEUTROPHILS % (AUTO) 64 % (42-75); PLATELET COUNT 418 10^3/uL (130-400); RED CELL DISTRIBUTION WIDTH 13.8 % (10.0-14.5); WHITE BLOOD COUNT 12.5 10^3/uL (4.3-11.0)
[2019-03-09 00:44] LABS: EOSINOPHILS # (AUTO) 0.1 10^3/uL (0.0-0.3); LYMPHOCYTES # (AUTO) 3.7 X 10^3 (1.0-4.0); MONOCYTES # (AUTO) 0.7 X 10^3 (0.0-1.0)
[2019-03-09] MEDS ORDERED: CIPROFLOXACIN IV 400MG/200ML 200 ML IV ONE (01:00)
[2019-03-09 01:02] LABS: BILIRUBIN,TOTAL 0.5 MG/DL (0.1-1.0); BUN/CREATININE RATIO 14; CALCIUM 9.7 MG/DL (8.5-10.1); CARBON DIOXIDE 21 MMOL/L (21-32); CHLORIDE 101 MMOL/L (98-107); CREATININE SERUM 0.76 MG/DL (0.60-1.30); GFR ESTIMATED > 60; GLUCOSE 107 MG/DL (70-105); MAGNESIUM 1.9 MG/DL (1.6-2.4); POTASSIUM 3.7 MMOL/L (3.6-5.0); SODIUM 139 MMOL/L (135-145)
[2019-03-09 01:03] LABS: ALANINE AMINOTRANSFERASE 19 U/L (0-55); ALBUMIN 4.1 GM/DL (3.2-4.5); ALKALINE PHOSPHATASE 55 U/L (40-136); TOTAL PROTEIN 7.3 GM/DL (6.4-8.2)
[2019-03-09] MEDS ORDERED: NS IV 1000 ML 1,000 ML IV STA (01:03)
[2019-03-09] MEDS ORDERED: ONDANSETRON 4 MG/2 ML (SDV) Z0FRAN IVP STA (01:03)
[2019-03-09 01:46] VITALS: BP 121/70
[2019-03-09] MEDS ORDERED: CIPR500T4 PO (01:53)
== END 2019-03-09 01:59 | disposition home or self-care (01) ==
LOC: EDUNIT# 23:49 → ER FS 23:51
DX: E86.0 Dehydration (principal); N30.91 Cystitis, unspecified with hematuria; M79.7 Fibromyalgia; D64.9 Anemia, unspecified; Z87.19 Personal history of other diseases of the digestive system; Z88.8 Allergy status to other drugs, medicaments and biological substances; Z88.2 Allergy status to sulfonamides; Z88.0 Allergy status to penicillin; Z88.1 Allergy status to other antibiotic agents; Z91.040 Latex allergy status; Z88.5 Allergy status to narcotic agent; Z90.89 Acquired absence of other organs; Z90.49 Acquired absence of other specified parts of digestive tract; Z87.442 Personal history of urinary calculi
CPT/HCPCS: 36415; 80053; 81000; 83735; 84703; 85025; 87088

== ENCOUNTER → 2019-03-12 | Outpatient (CLI) | payer MEDICARE ==
[~2019-03-12] MED LIST changes: +CIPR500T4 PO
--- NOTE | 2019-03-12 15:47 | Diagnostic Imaging Report ---
INDICATION: Back pain. Three views were obtained. FINDINGS: Alignment, vertebral body heights and disc spaces are within normal limits. There is no spondylolysis or spondylolisthesis. There is no acute fracture or traumatic subluxation. IMPRESSION: No acute radiographic abnormality. Dictated by: Dictated on workstation # [id number]
== END ==
LOC: RAD FS 15:00
PROVIDERS: ATTEND Nurse Practitioner Family
DX: M54.41 Lumbago with sciatica, right side (principal)
CPT/HCPCS: 72100

== ENCOUNTER → 2019-05-27 | Outpatient (CLI) | payer OTHER ==
--- NOTE | 2019-05-27 13:04 | Diagnostic Imaging Report ---
EXAMINATION: Chest 2 view HISTORY: History of pneumonia. Continued back pain and shortness of breath. COMPARISON: 03/03/2019. FINDINGS: The lung volumes are normal. No focal consolidation is seen. Atelectasis is seen in the left lung base. No large pleural effusion or pneumothorax is seen. The cardiomediastinal silhouette is normal in size and contour. No acute osseous abnormality is seen. IMPRESSION: 1. Left basilar atelectasis. No focal consolidations. Dictated by: Dictated on workstation # [id number]
== END ==
LOC: RAD FS 12:03
PROVIDERS: ATTEND Nurse Practitioner Family
DX: J18.9 Pneumonia, unspecified organism (principal); J98.11 Atelectasis
CPT/HCPCS: 71046

== ENCOUNTER 2019-06-02 21:50 | Emergency (ER) | payer OTHER ==
[~2019-06-02] VITALS: Ht 162.6 cm; Wt 114.6 kg
--- NOTE | 2019-06-02 23:09 | ED General ---
General Stated Complaint: CHEST PAIN Source of Information: Patient History of Present Illness Date Seen by Provider: Jun 02, 2019 Time Seen by Provider: 23:09 Initial Comments 33-year-old female presents with left-sided chest pain. Patient reports his been going on for at least 2-1/2 weeks. Patient reports that she was told she has pneumonia and "atelectasis" patient states that she continues to have pain in other some pain in her back also. She presents because is not gotten better. She does not have any shortness of breath. She does not have any nausea vomiting diaphoresis or any other systemic complaints. Allergies and Home Medications Allergies Coded Allergies: Iodine and Iodide Containing Produc (Verified Allergy, Unknown, 10/30/18) Sulfa (Sulfonamide Antibiotics) (Verified Allergy, Unknown, 10/30/18) amoxicillin (Verified Allergy, Unknown, 10/30/18) cephalexin (Verified Allergy, Unknown, 10/30/18) clindamycin (Verified Allergy, Unknown, 10/30/18) latex (Verified Allergy, Unknown, 10/30/18) morphine (Verified Allergy, Unknown, 10/30/18) neomycin (Verified Allergy, Unknown, 10/30/18) shellfish derived (Verified Allergy, Unknown, 10/30/18) Uncoded Allergies: paper tape (Allergy, Unknown, rash, 04/23/17) Home Medications Azathioprine 50 Mg Tablet, 50 MG PO DAILY, (Reported) Ciprofloxacin HCl 500 Mg Tablet, 500 MG PO BID Prescribed by: YOANA GARRISON on 03/09/19 0153 Cyanocobalamin 1,000 Mcg/Ml Inj, 1,000 MCG IJ monthly, (Reported) Diphenhydramine HCl 25 Mg Capsule, 25 MG PO TID PRN for allergies, (Reported) Multivit with Calcium,Iron,Min 1 Each Tablet, 1 EACH PO DAILY, (Reported) Omeprazole Magnesium 20 Mg Tablet.dr, 20 MG PO DAILY, (Reported) Oxycodone HCl/Acetaminophen 1 Each Tablet, 1 EACH PO QID PRN for PAIN-MILD, (Reported) [B6 ] , 50 MG DAILY, (Reported) [K2-D3] , 10,000 PO weekly, (Reported) [loestrine FE 28] , DAILY, (Reported) Patient Home Medication List Home Medication List Reviewed: Yes Review of Systems Review of Systems Constitutional: no symptoms reported; No chills, No fever EENTM: no symptoms reported Respiratory: see HPI Cardiovascular: see HPI Gastrointestinal: no symptoms reported Genitourinary: no symptoms reported Musculoskeletal: no symptoms reported Skin: no symptoms reported Psychiatric/Neurological: No Symptoms Reported Past Sbykiim-Egqwkt-Ihgivr Hx Past Med/Social Hx: Reviewed Nursing Past Med/Soc Hx Patient Social History Recent Foreign Travel: No Contact w/Someone Who Travel: No Recent Hopitalizations: No Seasonal Allergies Seasonal Allergies: No Past Medical History Surgeries: Yes (colectomy/ostomy bag) Abdominal, Adenoidectomy, Appendectomy, Gallbladder, Tonsillectomy Respiratory: No Cardiac: No Neurological: No Genitourinary: Yes Kidney Stones Gastrointestinal: Yes Crohns Disease Musculoskeletal: Yes Fibromyalgia Endocrine: No (Vitamin B12 deficiency) HEENT: No Cancer: No Psychosocial: No Integumentary: No Blood Disorders: Yes (anemia) Physical Exam Vital Signs Vital Signs - First Documented 06/02/19 22:45 Temp 36.4 Pulse 102 Resp 14 B/P (MAP) 133/75 (94) O2 Delivery Room Air Capillary Refill : Height, Weight, BMI Height: 5'4.00" Weight: 267lbs. 0.0oz. 121.081935jo; 46.00 BMI Method:Stated General Appearance: No Apparent Distress, WD/WN HEENT: PERRL/EOMI Neck: Non Tender, Supple Respiratory: Lungs Clear, Normal Breath Sounds, No Accessory Muscle Use; No Decreased Breath Sounds, No Respiratory Distress Cardiovascular: Regular Rate, Rhythm, Normal Peripheral Pulses Gastrointestinal: Non Tender, Soft Back: Normal Inspection, No CVA Tenderness Extremity: Normal Capillary Refill, Normal Inspection Neurologic/Psychiatric: Alert, Oriented x3, corporate development analyst II-XII Norm as Tested Progress/Results/Core Measures Suspected Sepsis SIRS Temperature: Pulse: Respiratory Rate: Laboratory Tests 06/03/19 00:10: White Blood Count 13.6H Blood Pressure / Mean: Laboratory Tests 06/03/19 00:10: Creatinine 0.69, Platelet Count 438H, Total Bilirubin 0.4 Results/Orders Lab Results Laboratory Tests Test 06/03/19 00:10 Range/Units White Blood Count 13.6 H 4.3-11.0 10^3/uL Red Blood Count 4.47 4.35-5.85 10^6/uL Hemoglobin 13.1 11.5-16.0 G/DL Hematocrit 40 35-52 % Mean Corpuscular Volume 90 80-99 FL Mean Corpuscular Hemoglobin 29 25-34 PG Mean Corpuscular Hemoglobin Concent 33 32-36 G/DL Red Cell Distribution Width 13.5 10.0-14.5 % Platelet Count 438 H 130-400 10^3/uL Mean Platelet Volume 9.3 7.4-10.4 FL Neutrophils (%) (Auto) 68 42-75 % Lymphocytes (%) (Auto) 27 12-44 % Monocytes (%) (Auto) 5 0-12 % Eosinophils (%) (Auto) 0 0-10 % Basophils (%) (Auto) 0 0-10 % Neutrophils # (Auto) 9.3 H 1.8-7.8 X 10^3 Lymphocytes # (Auto) 3.6 1.0-4.0 X 10^3 Monocytes # (Auto) 0.6 0.0-1.0 X 10^3 Eosinophils # (Auto) 0.0 0.0-0.3 10^3/uL Basophils # (Auto) 0.0 0.0-0.1 10^3/uL D-Dimer 0.37 0.00-0.49 UG/ML Sodium Level 140 135-145 MMOL/L Potassium Level 3.6 3.6-5.0 MMOL/L Chloride Level 101 98-107 MMOL/L Carbon Dioxide Level 22 21-32 MMOL/L Anion Gap 17 H 5-14 MMOL/L Blood Urea Nitrogen 11 7-18 MG/DL Creatinine 0.69 0.60-1.30 MG/DL Estimat Glomerular Filtration Rate > 60 BUN/Creatinine Ratio 16 Glucose Level 102 70-105 MG/DL Calcium Level 10.0 8.5-10.1 MG/DL Corrected Calcium 9.6 8.5-10.1 MG/DL Total Bilirubin 0.4 0.1-1.0 MG/DL Aspartate Amino Transf (AST/SGOT) 37 H 5-34 U/L Alanine Aminotransferase (ALT/SGPT) 48 0-55 U/L Alkaline Phosphatase 67 40-136 U/L Pro-B-Type Natriuretic Peptide 29.5 <75.0 PG/ML Total Protein 7.8 6.4-8.2 GM/DL Albumin 4.5 3.2-4.5 GM/DL My Orders Orders - CONCEPCION,STEFFANIE L DO Chest Pa/Lat (2 View) (06/02/19 23:15) Cbc With Automated Diff (06/02/19 23:15) Comprehensive Metabolic Panel (06/02/19 23:15) Fibrin Degradation Products (06/02/19 23:15) Probnp Fs (06/02/19 23:15) Ketorolac Injection (Toradol Injection) (06/03/19 00:49) Vital Signs/I&O 06/02/19 22:45 Temp 36.4 Pulse 102 Resp 14 B/P (MAP) 133/75 (94) O2 Delivery Room Air Capillary Refill : Progress Note : Progress Note Patient with no acute findings on x-ray, slightly elevated white blood cell count consistent with her steroid use. Negative d-dimer. Patient with pleuritic type symptoms. Discussed with her the need to follow-up with her primary care provider for outpatient management and continued care. Patient discharged home in stable condition Departure Impression Primary Impression: Pleurisy Disposition: 01 HOME, SELF-CARE Condition: Stable Departure-Patient Inst. Referrals: [facility]/ (PCP) Primary Care Physician BHARTI MARTINEZ APRN (Family) Primary Care Physician Patient Instructions: Pleuritic Chest Pain Add. Discharge Instructions: Follow-up with your doctor in 3-5 days for continuation of care and recheck in today symptoms The emergency department focuses on treating and ruling out life-threatening diseases. Whenever possible, a diagnosis is given. However, most patients are given an impression based on their history, physical exam, and workup during your brief time in the ER. Information about probable diagnosis and other educational material has been provided. Please take the time to read and understand this information. It is very important that you follow up with a physician as discussed during the visit today. Failure to adhere to your follow-up instructions may lead to severe disability, injury, or so please make sure to keep your appointments or obtain one as requested. Please keep in mind the emergency department is not designed to your primary care or "family doctor" and nonurgent issues are best evaluated by an outpatient physician STEFFANIE CONCEPCION DO Jun 02, 2019 23:09
[2019-06-03 00:16] LABS: BASOPHILS % (AUTO) 0 % (0-10); EOSINOPHILS % (AUTO) 0 % (0-10); HEMATOCRIT 40 % (35-52); HEMOGLOBIN 13.1 G/DL (11.5-16.0); LYMPHOCYTES # (AUTO) 3.6 X 10^3 (1.0-4.0); LYMPHOCYTES % (AUTO) 27 % (12-44); MEAN CORPUSCULAR HEMOGLOBIN 29 PG (25-34); MEAN CORPUSCULAR HGB CONC 33 G/DL (32-36); MEAN CORPUSCULAR VOLUME 90 FL (80-99); MEAN PLATELET VOLUME 9.3 FL (7.4-10.4); MONOCYTES # (AUTO) 0.6 X 10^3 (0.0-1.0); MONOCYTES % (AUTO) 5 % (0-12); NEUTROPHILS # (AUTO) 9.3 X 10^3 (1.8-7.8); NEUTROPHILS % (AUTO) 68 % (42-75); PLATELET COUNT 438 10^3/uL (130-400); RED CELL DISTRIBUTION WIDTH 13.5 % (10.0-14.5); WHITE BLOOD COUNT 13.6 10^3/uL (4.3-11.0)
[2019-06-03 00:35] LABS: ALANINE AMINOTRANSFERASE 48 U/L (0-55); ALBUMIN 4.5 GM/DL (3.2-4.5); ALKALINE PHOSPHATASE 67 U/L (40-136); BILIRUBIN,TOTAL 0.4 MG/DL (0.1-1.0); BUN/CREATININE RATIO 16; CARBON DIOXIDE 22 MMOL/L (21-32); CHLORIDE 101 MMOL/L (98-107); CREATININE SERUM 0.69 MG/DL (0.60-1.30); GFR ESTIMATED > 60; GLUCOSE 102 MG/DL (70-105); POTASSIUM 3.6 MMOL/L (3.6-5.0); SODIUM 140 MMOL/L (135-145); TOTAL PROTEIN 7.8 GM/DL (6.4-8.2)
[2019-06-03] MEDS ORDERED: KETOROLAC 60 MG/2 ML VIAL IM STA (00:49)
[2019-06-03 01:17] VITALS: BP 128/71
--- NOTE | 2019-06-03 06:31 | Diagnostic Imaging Report ---
CLINICAL INDICATION: Patient has history of pneumonia and that is not getting better even after changing her medications. EXAM: Chest x-ray PA and lateral views. COMPARISONS: Chest x-ray dated 05/27/2019. FINDINGS: Lungs/pleura: There is stable slight low lung volumes with left basilar atelectasis versus infiltrate. The remainder of the lungs are clear. There is no pneumothorax. There is no pleural effusion. Mediastinum: Unremarkable. Pulmonary vasculature: Unremarkable. Heart: Unremarkable. Bones/extrathoracic soft tissue: Unremarkable. IMPRESSION: There is stable mild left basilar atelectasis versus infiltrate. Dictated by: Dictated on workstation # [id number]
[2019-06-06] MEDS ORDERED: AZAT50TA PO (08:45)
[2019-06-06] MEDS ORDERED: LEVO1TAB7 PO (08:45)
[2019-06-06] MEDS ORDERED: VITAMIN D PO (08:45)
[2019-06-06] MEDS ORDERED: PYRI50TA PO (08:45)
[2019-06-06] MEDS ORDERED: OXYC-471 PO (08:45)
[2019-06-06] MEDS ORDERED: ATOR10TA66 PO (08:45)
[2019-06-06] MEDS ORDERED: ONDA8TAB12 PO (08:45)
[2019-06-06] MEDS ORDERED: DIPH-124 PO (08:45)
[2019-06-06] MEDS ORDERED: OMEP20TA33 PO (08:45)
[2019-06-06] MEDS ORDERED: SODI650T PO (08:45)
[2019-06-06] MEDS ORDERED: PRD10T PO (08:45)
[2019-06-06] MEDS ORDERED: [UNRECOGNIZED DRUG - OTHER] PO (08:45)
[2019-06-06] MEDS ORDERED: METO-351 PO (16:25)
--- OUTSIDE RECORDS SUMMARY | 2019-06-11 21:38 | XMS REPORT | Continuity of Care Document ---
Author Author [facility] Address [address] [place] [address] Phone Care Team Providers Care Ambulance Driver Name Role Phone Golden Cotton Jr Rndphys Unavailable , PCP Unavailable Allergies, Adverse Reactions, Alerts Allergen Type Severity Reaction Last Updated Verified Status amoxicillin Adverse Reaction Rash May 19, 2019 6:56pm Yes Active bacitracin Adverse Reaction Rash May 19, 2019 6:56pm Yes Active cephalexin Adverse Reaction Rash May 19, 2019 6:56pm Yes Active clindamycin Adverse Reaction Rash May 19, 2019 6:56pm Yes Active Iodinated Contrast Media Adverse Reaction Rash May 19, 2019 6:56pm Yes Active Latex, Natural Rubber Adverse Reaction Rash May 19, 2019 6:56pm Yes Active morphine Adverse Reaction Rash May 19, 2019 6:56pm Yes Active neomycin Adverse Reaction Rash May 19, 2019 6:56pm Yes Active polymyxin B Adverse Reaction Rash May 19, 2019 6:56pm Yes Active Sulfa (Sulfonamide Antibiotics) Adve rse Reaction Rash May 19 0 6:56pm Yes Active Medications Medication Status Dose Units Route Sig Qty Days Start Date End Date Instructions Azithromycin Active 250 MG Oral Daily 4 4 May 19, 2019 10:12pm Problems Active Problems Medical Problem Onset Date Status Pneumonia Active Procedures Procedure Date Performed Status XR chest 1V May 19, 2019 6:59pm completed Relevant Diagnostic Tests and/or Laboratory Data Laboratory Results Test Date/Time Result Interpretation Reference Range Result Comment Performing Site White Blood Count May 19, 2019 8:35p m 11.2 10^3/uL 4.5-11.0 [facility], [address] [place] [address] [id number] Red Blood Count May 19, 2019 8:35pm 4.85 10^6/uL 3.50-5.40 [facility], [address] [place] [address] 70320 Hemoglobin May 19, 2019 8:35pm 14.0 g/dL 12.0-16.0 [facility], [address] [place] [address] 27696 Hematocrit May 19, 2019 8:35pm 43.3 % 36-48 [facility], [address] [place] [address] 08178 Mean Corpuscular Volume April 8:35pm 89.4 fL 79-99 [facility], [address] [place] [address] 04724 Mean Corpuscular Hemoglobin May 19, 2019 8:35pm 28.8 pg 25.0-34.0 [facility], [address] [place] [address] 46367 Mean Corpuscular Hemoglobin Concent May 19, 2019 8:35pm 32.2 g/dL 31.0-36.0 [facility], [address] [place] [address] 58489 Red Cell Distribution Width May 19, 2019 8:35pm 13.8 % 11.0-15.0 [facility], [address] [place] [address] 74474 Platelet Count May 19, 2019 8:35pm 359 10^3 uL 130-400 [facility], [address] [place] [address] 53921 Mean Platelet Volume May 19, 020 8:35pm 8.3 fL 7.0-11.0 [facility], [address] [place] [address] 15937 Neutrophils (%) (Auto) May 19, 2019 8:35pm 69.3 % 43.0-72.0 [facility], [facility] [address] [place] [address] 04908 Lymphocytes (%) (Auto) May 19, 2019 8:35pm 23.4 % 15.0-45.0 [facility], [address] [place] [address] 33361 Monocytes (%) (Auto) May 19, 2 020 8:35pm 5.3 % 1.0-12.0 [facility], [address] [place] [address] 33454 Eosinophils (%) (Auto) May 19, 2019 8:35pm 0.9 % 0.0-6.0 [facility], [facility]. [address] [place] [address] 03730 Basophils (%) (Auto) May 19 8:35pm 1.1 % 0.0-2.0 [facility], [facility]. [address] [place], [place] [id number] Neutrophils # (Auto) May 19 8:35pm 7.8 10^3 uL 1.0-8.0 [facility], [facility] [address] [place] [address] 85361 Lymphocytes # (Auto) May 19 8:35pm 2.6 10^3 uL 1.0-3.0 [facility], [facility]. [address] [place] [address] 93430 Monocytes # (Auto) May 19 0 8:35pm 0.6 10^3 uL 0.0-1.0 [facility], [facility]. [address] [place] [address] 15151 Eosinophils # (Auto) May 19 8:35pm 0.1 10^3 uL 0.0-0.4 [facility], [facility]. [address] [place] [address] 99596 Basophils # (Auto) May 19 0 8:35pm 0.1 10^3 uL 0.0-0.2 [facility], [facility] [address] [place] [address] 75637 Sodium Level May 19, 2019 8:35pm 142 mmol/L 135-150 [facility], [facility] [address] [place] [address] 59911 Potassium Level May 19, 2019 8:35pm 4.0 mmol/L 3.4-5.2 [facility], [facility]. [address] [place] [address] 98107 Chloride Level May 19, 2019 8:35pm 105 mmol/L 100-112 [facility], [facility]. [address] [place] [address] 29068 Carbon Dioxide Level May 19 8:35pm 22 mEq/L 18-30 [facility], [address] [place] [address] [place] [address] Anion Gap May 19, 2019 8:35pm 15 mmol/L 8-11 [facility], [address] [place] [address] 47252 Blood Urea Nitrogen May 19 8:35pm 10 mg/dL 5-21 [facility], [address] [place] [address] 34482 Creatinine May 19, 2019 8:35pm 0.78 mg/dL 0.60-1.30 [facility], [address] [place] [address] 31161 Glomerular Filtration Rate Calc Ben manriquez 2019 8:35pm > 60 mL/Min The GFR is not validated for use in drug dosing adjustments.Continue to use estimated creatinine clearance per dosingreference text.Chronic Kidney Disease is defined as either kidney damage ora GFR less than 60 ml/min that persists for at least 3months. Stage 3 = 30-59 ml/min Stage 4 = 15-29 ml/min Stage 5 = <15 ml/min [facility], [address] [place] [address] 73166 Glucose Level May 19, 2019 8:35pm 86 mg/dL 70-99 [facility], [address] [place] [address] 45472 Calcium Level May 19, 2019 8:35pm 10.2 mg/dL 8.6-10.5 [facility], [facility] [address] [place] [address] 09703 Total Bilirubin May 19, 2019 8:35pm 0.9 mg/dL 0.0-1.2 [facility], [address] [place] [address] 00677 Aspartate Amino Transf (AST/SGOT) [facility] 2019 8:35pm 23 U/L 6-37 [facility], [address] [place] [address] 63519 Alanine Aminotransferase (ALT/SGPT) May 19, 2019 8:35pm 32 U/L - [facility], [facility] [address] [place] [address] 51382 Troponin I May 19, 2019 8:35pm < 0.01 ng/mL 0.00-0.05 [facility], [facility] [address] [place] [address] 44068 Total Protein May 19, 2019 8:35pm 7.8 g/dL 6.4-8.2 [facility], [address] [facility] [address] Albumin May 19, 2019 8:35pm 4.0 g/dL 3.3-4.5 [facility], [address] [facility] [address] Albumin/Globulin Ratio May 19, 2019 8:35pm 1.1 0.7-2.0 [facility], [address] [facility] [address] Alkaline Phosphatase May 19 8:35pm 66 U/L 50-136 [facility] [address] [facility] [address] Health Concerns Health Concerns may be documented in an alternate section. Advance Directives Advance Directive Response Recorded Date/Time Advance Directive on File? No May 19, 2019 7:46pm Chief Complaint and Reason for Visit Chief Complaint Chest Pain Encounters Encounter Location(s) Ar rival/Admit Date Discharge/Depart Date Provider(s) Departed Emergency [facility]-Emergency Department May 19, 2019 6:43pm May 192019 10:56pm null Assessments No Assessments Information Available Family History Relationship Condition A ge at Onset Recorded Date/Time Unknown Family History U nknown May 19, 2019 7:08pm Functional Status No Functional Status information available Goals Acute Goals Problem: Chest Pain Goal: Relief of chest pain, rule out cardiac event Plan: Refer to patient instructions provided. Immunizations No Immunization Information Available Mental Status No Mental Status Information Available Medical Equipment No Medical Equipment Information available Insurance Providers Guarantor Maureen Bautista Address [address] [facility] [address] Contact Info. Home Phone: Payer Policy Id Coverage Id Subscriber's Name Subscriber Id Effective Date Expiration Date [facility] [employer] [id number] 1 [id number] Maureen Bautista [id number] Self Pay Self N/A Plan of Treatment Future Tests Future scheduled test information is unavailable Pending Tests Pending diagnostic test information is unavailable Future Visits Future appointment information is unavailable Referrals to Other Providers Reason for Referral Referral Start Date Provider Provider Conta ct Information Provider Address [facility] Future Procedures Future procedure information is unavailable Future Medications Future medication information is unavailable Patient Instructions Pneumonia (ED) Social History Smoking Status Status Date of Observation Never smoked tobacco (finding) Mimi ry 2019 6:47pm Observation Status Observation Response Selvin e of Response housing house May 192019 6:47pm Recent Travel No May 19, 2019 7:08pm Assigned Sex Female Vital Signs Vital Reading Result Ref erence Range Collection Date/Time Height 64 [in_i] May 19, 2019 6:47pm Weight 255.00 [lb_av] May 19, 2019 6:47pm Body Temperature 99.8 [degF] 97.5-99.5 May 19, 2019 6:47pm Heart Rate 116 /min 60-90 May 19, 2019 10:46pm Respiratory rate 12 /min 12-20 May 19, 2019 10:46pm Oxygen saturation by Pulse oximetry 98 % 90- 100 May 19, 2019 10:46pm BP Systolic 146 mm[Hg] 1 00-160 May 19, 2019 10:45pm BP Diastolic 80 mm[Hg] 5 0-80 May 19, 2019 10:45pm BMI (Body Mass Index) 43.7 kg/m2 May 19, 2019 6:47pm Hospital Discharge Instructions Additional Instructions Rest, push fluids, Gatorade or Power aid Alternate Tylenol every 4 hours, Ibuprofen every 6-8 hours as needed for pain Take antibiotic as directed Follow up with your primary next week Return to ED as needed
--- OUTSIDE RECORDS SUMMARY | 2019-06-11 21:38 | XMS REPORT | Continuity of Care Document ---
Author Author [facility] Address [address] [place] [address] Phone Care Team Providers Care Ticket Speculator Name Role Phone , PCP Unavailable Juan David Arellano Rndphys Allergies, Adverse Reactions, Alerts Allergen Type Severity [...] 19, 2019 8:35p m 11.2 10^3/uL 4.5-11.0 [facility], [address] [facility] [address] Red Blood Count May 19, 2019 8:35pm 4.85 10^6/uL 3.50-5.40 [facility], [address] [place] [address]857 Hemoglobin May 19, 2019 8:35pm 14.0 g/dL 12.0-16.0 [facility], [address] [place] [address] Hematocrit May 19, 2019 8:35pm 43.3 % 36-48 [facility], [facility] [address] [place] [address]102 Mean Corpuscular Volume April 8:35pm 89.4 fL 79-99 [facility], [facility] [address] [place] [address] 56078 Mean Corpuscular Hemoglobin May 19, 2019 8:35pm 28.8 pg 25.0-34.0 [facility], [facility]. [address] [place] [address] Mean Corpuscular Hemoglobin Concent May 19, 2019 8:35pm 32.2 g/dL 31.0-36.0 [facility], [facility] [address] [place] [address] 31284 Red Cell Distribution Width May 19, 2019 8:35pm 13.8 % 11.0-15.0 [facility], [facility] [address] [place] [address] 41264 Platelet Count May 19, 2019 8:35pm 359 10^3 uL 130-400 [facility], [facility] [address] [place] [address] 46174 Mean Platelet Volume May 19 8:35pm 8.3 fL 7.0-11.0 [facility], [address] [place] [address] 18475 Neutrophils (%) (Auto) May 19, 2019 8:35pm 69.3 % 43.0-72.0 [facility], [facility] [address] [place] [address] Lymphocytes (%) (Auto) May 19, 2019 8:35pm 23.4 % 15.0-45.0 [facility], [facility][note 2][address] [place] [address] Monocytes (%) (Auto) May 19 020 8:35pm 5.3 % 1.0-12.0 [facility], [address] [place] [address] 33316 Eosinophils (%) (Auto) May 19, 2019 8:35pm 0.9 % 0.0-6.0 [facility], [address] [place] [address] 48424 Basophils (%) (Auto) May 19 8:35pm 1.1 % 0.0-2.0 [facility], [address] [place], [place] [phone] Neutrophils # (Auto) May 19 8:35pm 7.8 10^3 uL 1.0-8.0 [facility], [facility] [address] [place], [place] [phone] Lymphocytes # (Auto) May 19 8:35pm 2.6 10^3 uL 1.0-3.0 [facility], [address] [place] [address] 38955 Monocytes # (Auto) May 19 0 8:35pm 0.6 10^3 uL 0.0-1.0 [facility], [address] [place] [address]649 Eosinophils # (Auto) May 19 8:35pm 0.1 10^3 uL 0.0-0.4 [facility], [facility] [address] [place] [address] Basophils # (Auto) May 19 0 8:35pm 0.1 10^3 uL 0.0-0.2 [facility], [facility] [address] [place] [address] Sodium Level May 19, 2019 8:35pm 142 mmol/L 135-150 [facility], [address] [place] [address] 30472 Potassium Level May 19, 2019 8:35pm 4.0 mmol/L 3.4-5.2 [facility], [facility] [address] [place] [address] 35245 Chloride Level May 19, 2019 8:35pm 105 mmol/L 100-112 [facility], [facility] [address] [place] [address]1383 Carbon Dioxide Level May 19 8:35pm 22 mEq/L 18-30 [facility], [address] [facility] [address] Anion Gap May 19, 2019 8:35pm 15 mmol/L 8-11 [facility], [address] [facility] [address] Blood Urea Nitrogen May 19 8:35pm 10 mg/dL 5-21 [facility], [address] [facility] [address] Creatinine May 19, 2019 8:35pm 0.78 mg/dL 0.60-1.30 [facility], [address] [place] [address] Glomerular Filtration Rate Calc Ben mitra 2019 8:35pm > 60 mL/Min The GFR is not validated for use in drug dosing adjustments.Continue to use estimated creatinine clearance per dosingreference text.Chronic Kidney Disease is defined as either kidney damage ora GFR less than 60 ml/min that persists for at least 3months. Stage 3 = 30-59 ml/min Stage 4 = 15-29 ml/min Stage 5 = <15 ml/min [facility], [address] [place] [address]170 Glucose Level May 19, 2019 8:35pm 86 mg/dL 70-99 [facility], [facility] [place][note 2][address] [place] [address] 48680 Calcium Level May 19, 2019 8:35pm 10.2 mg/dL 8.6-10.5 [facility], [facility] [place][note 2][address] [place] [address] Total Bilirubin May 19, 2019 8:35pm 0.9 mg/dL 0.0-1.2 [facility], [address] [place] [address] 16716 Aspartate Amino Transf (AST/SGOT) [facility] 2019 8:35pm 23 U/L 6-37 [facility], [facility] [place][note 2][address] [place] [address] Alanine Aminotransferase (ALT/SGPT) May 19, 2019 8:35pm 32 U/L [facility], [address] [place] [address]70 Troponin I May 19, 2019 8:35pm < 0.01 ng/mL 0.00-0.05 [facility], [facility] [place][note 2][address] [place] [address] Total Protein May 19, 2019 8:35pm 7.8 g/dL 6.4-8.2 [facility], [address] [facility] [address] Albumin May 19, 2019 8:35pm 4.0 g/dL 3.3-4.5 [facility] [address] [facility] [address] Albumin/Globulin Ratio May 19, 2019 8:35pm 1.1 0.7-2.0 [facility] [address] [facility] [address] Alkaline Phosphatase May 19 020 8:35pm 66 U/L 50-136 [place] [address] [facility] [address] Health Concerns Health Concerns may be documented [...] Insurance Providers Guarantor Maureen Bautista Address [address] [facility] [address] Contact Info. Home Phone: Payer Policy Id Coverage Id Subscriber's Name Subscriber Id Effective Date Expiration Date [facility] [employer] [id number] 1 [id number] Maureen Bautista [id number] Self Pay Self N/A Plan of Treatment Future Tests Future scheduled test information is unavailable Pending Tests Pending diagnostic test information is unavailable Future Visits Future appointment information is unavailable Referrals to Other Providers Reason for Referral Referral Start Date Provider Provider Conta ct Information Provider Address [facility] Future Procedures Future procedure information is unavailable Future Medications Future medication information is unavailable Patient Instructions Pneumonia (ED) Social History Smoking Status Status Date of Observation Never smoked tobacco (finding) Mimi 2019 6:47pm Observation Status Observation Response Selvin [...]
--- OUTSIDE RECORDS SUMMARY | 2019-06-11 21:39 | XMS REPORT | Continuity of Care Document ---
Author Organization Unknown Address Unknown Phone Unavailable Allergies Active Description Code Type Severity Reaction Onset Reported/Identified Relationship to Patient Clinical Status Yes paper tape paper tape Unknown rash 04/23/2017 Yes amoxicillin [id number] Drug Aller gy Unknown N/A 10/30/2018 Yes cephalexin [id number] Drug Allerg y Unknown N/A 10/30/2018 Yes clindamycin [id number] Drug Aller gy Unknown N/A 10/30/2018 Yes Iodine and Iodide Containing Produc [id number] Drug Allergy Unknown N/A 10/30/2018 Yes latex [id number] Drug Allergy Unknown N/A 10/30/2018 Yes morphine [id number] Drug Allergy Unknown N/A 10/30/2018 Yes neomycin [id number] Drug Allergy Unknown N/A 10/30/2018 Yes shellfish derived [id number] Drug Allergy Unknown N/A 10/30/2018 Yes Sulfa (Sulfonamide Antibiotics) [id number] Drug Allergy Unknown N/A 019 Yes amoxicillin amoxicillin AdvReac N/A Rash 05/19/2019 Yes bacitracin bacitracin AdvReac N/A Rash 05/19/2019 Yes cephalexin cephalexin AdvReac N/A Rash 05/19/2019 Yes clindamycin clindamycin AdvReac N/A Rash 05/19/2019 Yes Iodinated Contrast Media Iodin ated Contrast Media AdvReac N/A Rash 020 Yes Latex, Natural Rubber Latex, Natural R ubber AdvReac N/A Rash 05/19/2019 Yes morphine morphine AdvReac N/A Rash 05/19/2019 Yes neomycin neomycin AdvReac N/A Rash 05/19/2019 Yes polymyxin B polymyxin B AdvReac N/A Rash 05/19/2019 Yes Sulfa (Sulfonamide Antibiotics) Sulfa (Sulfonamide Antibiotics) AdvReac N/A Rash 05/19/2019 Medications Medication Packaging Start Date St op Date Route Dosage Sig azithromycin Tablet 05/19/2019 PO 250 MG Problems Date Dx Coded Attending Type Code Diagnosis Diagnosed By 04/23/2017 NASEEM WORRELL MD, Ot N20.1 CALCULUS OF URETER 04/23/2017 NASEEM [...] OF OTHER ORGANS 06/26/2017 ALEXANDRA FORMAN DO S Ot N83.202 UNSPECIFIED OVARIAN CYST, LEFT SIDE 07/11/2017 ALEXANDRA FORMAN DO Ot N83.202 UNSPECIFIED OVARIAN CYST, LEFT SIDE 02/06/2018 Thiago MANNING, Erma Parks R1 0.2 Pelvic Pain-Female 04/02/2018 ALEXANDRA FORMAN DO S Ot N83.202 UNSPECIFIED OVARIAN CYST, LEFT SIDE 04/04/2018 ALEXANDRA FORMAN DO Ot N60.02 SOLITARY CYST OF LEFT BREAST 04/04/2018 ALEXANDRA FORMAN DO Ot N63.20 UNSPECIFIED LUMP IN THE LEFT BREAST, UNS 04/12/2018 ALEXANDRA FORMAN DO Ot N60.02 SOLITARY CYST OF LEFT BREAST 04/12/2018 ALEXANDRA FORMAN DO Ot N63.20 UNSPECIFIED LUMP IN THE LEFT BREAST, UNS 04/18/2018 ALEXANDRA FORMAN DO Ot N60.02 SOLITARY CYST OF LEFT BREAST 04/18/2018 ALEXANDRA FORMAN DO Ot N60.02 SOLITARY CYST OF LEFT BREAST 04/18/2018 ALEXANDRA FORMAN DO S Ot N63.20 UNSPECIFIED LUMP IN THE LEFT BREAST, UNS 05/07/2018 ALEXANDRA FORMAN DO Ot D24.2 BENIGN NEOPLASM OF LEFT BREAST 05/07/2018 ALEXANDRA FORMAN DO Ot N60.02 SOLITARY CYST OF LEFT BREAST 05/07/2018 ALEXANDRA FORMAN DO Ot N63.20 UNSPECIFIED LUMP IN THE LEFT BREAST, UNS 05/17/2018 ALEXANDRA FORMAN DO Ot D24.2 BENIGN NEOPLASM OF LEFT BREAST 05/17/2018 TJECH DO, ALEXANDRA S Ot N60.02 SOLITARY CYST OF LEFT BREAST 05/17/2018 TJECH DO, ALEXANDRA S Ot N63.20 UNSPECIFIED LUMP IN THE LEFT BREAST, UNS 06/05/2018 DEFFENBAUGH DO, RONEY D Ot K50.90 CROHN'S DISEASE, UNSPECIFIED, WITHOUT CO 06/05/2018 DEFFENBAUGH DO, RONEY D Ot R79.89 OTHER SPECIFIED ABNORMAL FINDINGS OF BLO 06/05/2018 DEFFENBAUGH DO, RONEY D Ot K50.90 CROHN'S DISEASE, UNSPECIFIED, WITHOUT CO 06/05/2018 DEFFENBAUGH DO, RONEY D Ot R79.89 OTHER SPECIFIED ABNORMAL FINDINGS OF BLO 06/20/2018 DEFFENBAUGH DO, RONEY D Ot K50.90 CROHN'S DISEASE, UNSPECIFIED, WITHOUT CO 06/20/2018 DEFFENBAUGH DO, RONEY D Ot R79.89 OTHER SPECIFIED ABNORMAL FINDINGS OF BLO 07/18/2018 DEFFENBAUGH DO, RONEY D Ot K50.90 CROHN'S DISEASE, UNSPECIFIED, WITHOUT CO 07/18/2018 DEFFENBAUGH DO, RONEY D Ot R79.89 OTHER SPECIFIED ABNORMAL FINDINGS OF BLO 08/15/2018 DASIA DO, ALEXANDRA S Ot N83.202 UNSPECIFIED OVARIAN CYST, LEFT SIDE 08/15/2018 TJECH DO, ALEXANDRA S Ot N60.02 SOLITARY CYST OF LEFT BREAST 08/15/2018 TJECH DO, ALEXANDRA S Ot N63.20 UNSPECIFIED LUMP IN THE LEFT BREAST, UNS 08/15/2018 DASIA DOALEXANDRA S Ot D24.2 BENIGN NEOPLASM OF LEFT BREAST 08/15/2018 TJECH DO, ALEXANDRA S Ot N60.02 SOLITARY CYST OF LEFT BREAST 08/15/2018 TJECH DO, ALEXANDRA S Ot N63.20 UNSPECIFIED LUMP IN THE LEFT BREAST, UNS 08/15/2018 DEFFENBAUGH DORASHIDARY D Ot K50.90 CROHN'S DISEASE, UNSPECIFIED, WITHOUT CO 08/15/2018 DEFFENBAUGH DO, RONEY D Ot R79.89 OTHER SPECIFIED ABNORMAL FINDINGS OF BLO 08/15/2018 TJECH DO, ALEXANDRA S Ot N83.202 UNSPECIFIED OVARIAN CYST, LEFT SIDE 08/15/2018 FENECH DO, ALEXANDRA S Ot N60.02 SOLITARY CYST OF LEFT BREAST 08/15/2018 TJECH DO, ALEXANDRA S Ot N63.20 UNSPECIFIED LUMP IN THE LEFT BREAST, UNS 08/15/2018 TJECH DO, ALEXANDRA S Ot D24.2 BENIGN NEOPLASM OF LEFT BREAST 08/15/2018 FENECH DO, ALEXANDRA S Ot N60.02 SOLITARY CYST OF LEFT BREAST 08/15/2018 FENECH DO, ALEXANDRA S Ot N63.20 UNSPECIFIED LUMP IN THE LEFT BREAST, UNS 08/15/2018 RONEY MACK DO Ot K50.90 CROHN'S DISEASE, UNSPECIFIED, WITHOUT CO 08/15/2018 YANNIFENBAJERRI DORONEY Ot R79.89 OTHER SPECIFIED ABNORMAL FINDINGS OF BLO 08/16/2018 NATAJERRI DORONEY Ot K50.90 CROHN'S DISEASE, UNSPECIFIED, WITHOUT CO 08/16/2018 YANNIFENBAJERRI DORONEY Ot R79.89 OTHER SPECIFIED ABNORMAL FINDINGS OF BLO 10/01/2018 DASIA DO, ALEXANDRA S Ot N83.202 UNSPECIFIED OVARIAN CYST, LEFT SIDE 10/01/2018 TJECH DO, ALEXANDRA S Ot N60.02 SOLITARY CYST OF LEFT BREAST 10/01/2018 FENECH DO, ALEXANDRA S Ot N63.20 UNSPECIFIED LUMP IN THE LEFT BREAST, UNS 10/01/2018 TJECH DO, ALEXANDRA S Ot D24.2 BENIGN NEOPLASM OF LEFT BREAST 10/01/2018 TJECH DO, ALEXANDRA S Ot N60.02 SOLITARY CYST OF LEFT BREAST 10/01/2018 FENECH DO, ALEXANDRA S Ot N63.20 UNSPECIFIED LUMP IN THE LEFT BREAST, UNS 10/01/2018 RONEY MACK DO, Ot K50.90 CROHN'S DISEASE, UNSPECIFIED, WITHOUT CO 10/01/2018 RONEY MACK DO Ot R79.89 OTHER SPECIFIED [...] LUMP IN THE LEFT BREAST, UNS 10/01/2018 TJECH DO, ALEXANDRA S Ot D24.2 BENIGN NEOPLASM OF LEFT BREAST 10/01/2018 TJECH DO, ALEXANDRA S Ot N60.02 SOLITARY CYST OF LEFT BREAST 10/01/2018 TJECH DO, ALEXANDRA S Ot N63.20 UNSPECIFIED LUMP IN THE LEFT BREAST, UNS 10/01/2018 RONEY MACK DO, Ot K50.90 CROHN'S DISEASE, UNSPECIFIED, WITHOUT CO 10/01/2018 RONEY MACK DO Ot R79.89 OTHER SPECIFIED ABNORMAL FINDINGS OF BLO 10/01/2018 TJECH DO, ALEXANDRA S Ot D24.2 BENIGN NEOPLASM OF LEFT BREAST 10/01/2018 FENECH DO, ALEXANDRA S Ot D24.2 BENIGN NEOPLASM OF LEFT BREAST 10/02/2018 TJECH DO, ALEXANDRA S Ot D24.2 BENIGN NEOPLASM OF LEFT BREAST 10/03/2018 TJECH DO, ALEXANDRA S Ot N83.202 UNSPECIFIED OVARIAN CYST, LEFT SIDE 10/03/2018 DASIA DO, ALEXANDRA S Ot N60.02 SOLITARY CYST OF LEFT BREAST 10/03/2018 TJECH DO, ALEXANDRA S Ot N63.20 UNSPECIFIED LUMP IN THE LEFT BREAST, UNS 10/03/2018 TJECH DO, ALEXANDRA S Ot D24.2 BENIGN NEOPLASM OF LEFT BREAST 10/03/2018 JTECH DO, ALEXANDRA S Ot N60.02 SOLITARY CYST OF LEFT BREAST 10/03/2018 TJECH DO, ALEXANDRA S Ot N63.20 UNSPECIFIED LUMP IN THE LEFT BREAST, UNS 10/03/2018 RONEY MACK DO, Ot K50.90 CROHN'S DISEASE, UNSPECIFIED, WITHOUT CO 10/03/2018 RONEY MACK DO, Ot R79.89 OTHER SPECIFIED ABNORMAL FINDINGS OF BLO 10/03/2018 TJECH DO, ALEXANDRA S Ot D24.2 BENIGN NEOPLASM OF LEFT BREAST 10/03/2018 FENECH DO, ALEXANDRA S Ot D24.2 BENIGN NEOPLASM OF LEFT BREAST 10/16/2018 TALYA GARY DO Ot Z01.8 18 ENCOUNTER FOR OTHER PREPROCEDURAL EXAMIN 10/16/2018 MANUEL GARY DOIC B Ot Z01.8 18 ENCOUNTER FOR OTHER PREPROCEDURAL EXAMIN 10/22/2018 TALYA GARY DO Ot Z01.8 18 ENCOUNTER FOR OTHER PREPROCEDURAL EXAMIN 10/30/2018 ABDIRAHMAN MANUEL BETTSIC B Ot D24.2 BENIGN NEOPLASM OF LEFT BREAST 10/30/2018 ABDIRAHMAN MANUEL BETTSIC B Ot E28.2 POLYCYSTIC OVARIAN SYNDROME 10/30/2018 ABDIRAHMAN DO TALYA B Ot E53.8 DEFICIENCY OF OTHER SPECIFIED B GROUP 10/30/2018 ABDIRAHMAN BETTS TALYA B Ot E66.0 1 MORBID (SEVERE) OBESITY DUE TO EXCESS CA 10/30/2018 ABDIRAHMAN DO TALYA B Ot G62.9 POLYNEUROPATHY, UNSPECIFIED 10/30/2018 ABDIRAHMAN BETTS TALYA B Ot K50.9 0 CROHN'S DISEASE, UNSPECIFIED, WITHOUT CO 10/30/2018 MANUEL GARY DOIC B Ot Z11.2 ENCOUNTER FOR SCREENING FOR OTHER BACTER 10/30/2018 MANUEL GARY DOIC B Ot Z68.4 2 BODY MASS INDEX (BMI) 45.0-49.9, ADULT 10/30/2018 MANUEL GARY DOIC B Ot Z79.8 99 OTHER ALF (CURRENT) DRUG THERAPY 10/30/2018 ERINRYAN DO TALYA B Ot Z87.4 42 PERSONAL HISTORY OF URINARY CALCULI 10/30/2018 ERINRYAN DO TALYA B Ot Z88.1 ALLERGY STATUS TO OTHER ANTIBIOTIC AGENT 10/30/2018 ABDIRAHMAN BETTS TALYA B Ot Z88.2 ALLERGY STATUS TO SULFONAMIDES STATUS 10/30/2018 ABDIRAHMAN DO TALYA B Ot Z88.5 ALLERGY STATUS TO NARCOTIC AGENT STATUS 10/30/2018 ERINRYAN MANUEL BETTSIC B Ot Z91.0 48 OTHER NONMEDICINAL SUBSTANCE ALLERGY STA 10/30/2018 MANUEL GARY DOIC B Ot Z93.2 ILEOSTOMY STATUS 11/04/2018 MANUEL GARY DOIC B Ot D24.2 BENIGN NEOPLASM OF LEFT BREAST 11/04/2018 MANUEL GARY DOIC B Ot E28.2 POLYCYSTIC OVARIAN SYNDROME 11/04/2018 ABDIRAHMAN BETTS TALYA B Ot E53.8 DEFICIENCY OF OTHER SPECIFIED B GROUP 11/04/2018 ABDIRAHMAN DO TALYA B Ot E66.0 1 MORBID (SEVERE) OBESITY DUE TO EXCESS CA 11/04/2018 ABDIRAHMAN BETTS TALYA B Ot G62.9 POLYNEUROPATHY, UNSPECIFIED 11/04/2018 DELMAN DO, TALYA B Ot K50.9 0 CROHN'S DISEASE, UNSPECIFIED, WITHOUT CO 11/04/2018 ABDIRAHMAN BETTS, TALYA B Ot Z11.2 ENCOUNTER FOR SCREENING FOR OTHER BACTER 11/04/2018 ABDIRAHMAN BETTS TALYA B Ot Z68.4 2 BODY MASS INDEX (BMI) 45.0-49.9, ADULT 11/04/2018 ABDIRAHMAN BETTS TALYA B Ot Z79.8 99 OTHER ALF (CURRENT) DRUG THERAPY 11/04/2018 ERINRYAN BETTS TALYA B Ot Z87.4 42 PERSONAL HISTORY OF URINARY CALCULI 11/04/2018 ABDIRAHMAN BETTS TALYA B Ot Z88.1 ALLERGY STATUS TO OTHER ANTIBIOTIC AGENT 11/04/2018 ABDIRAHMAN BETTS TALYA B Ot Z88.2 ALLERGY STATUS TO SULFONAMIDES STATUS 11/04/2018 ERINRYAN MANUEL BETTSIC B Ot Z88.5 ALLERGY STATUS TO NARCOTIC AGENT STATUS 11/04/2018 ABDIRAHMAN BETTS TALYA B Ot Z91.0 48 OTHER NONMEDICINAL SUBSTANCE ALLERGY STA 11/04/2018 ERINRYAN DO TALYA B Ot Z93.2 ILEOSTOMY STATUS 11/06/2018 ABDIRAHMAN DO TALYA B Ot D24.2 BENIGN NEOPLASM OF LEFT BREAST 11/06/2018 ABDIRAHMAN BETTS TALYA B Ot E28.2 POLYCYSTIC OVARIAN SYNDROME 11/06/2018 ABDIRAHMAN DO TALYA B Ot E53.8 DEFICIENCY OF OTHER SPECIFIED B GROUP 11/06/2018 ABDIRAHMAN BETTS TALYA B Ot E66.0 1 MORBID (SEVERE) OBESITY DUE TO EXCESS CA 11/06/2018 ERINRYAN MANUEL BETTSIC B Ot G62.9 POLYNEUROPATHY, UNSPECIFIED 11/06/2018 ABDIRAHMAN BETTS TALYA B Ot K50.9 0 CROHN'S DISEASE, UNSPECIFIED, WITHOUT CO 11/06/2018 ABDIRAHMAN BETTS, TALYA B Ot Z11.2 ENCOUNTER FOR SCREENING FOR OTHER BACTER 11/06/2018 ERINRYAN MANUEL BETTSIC B Ot Z68.4 2 BODY MASS INDEX (BMI) 45.0-49.9, ADULT 11/06/2018 ABDIRAHMAN BETTS, TALYA B Ot Z79.8 99 OTHER ALF (CURRENT) DRUG THERAPY 11/06/2018 ABDIRAHMAN BETTS TALYA B Ot Z87.4 42 PERSONAL HISTORY OF URINARY CALCULI 11/06/2018 ABDIRAHMAN BETTS TALYA B Ot Z88.1 ALLERGY STATUS TO OTHER ANTIBIOTIC AGENT 11/06/2018 ABDIRAHMAN BETTS, TALYA B Ot Z88.2 ALLERGY STATUS TO SULFONAMIDES STATUS 11/06/2018 ABDIRAHMAN BETTS TALYA B Ot Z88.5 ALLERGY STATUS TO NARCOTIC AGENT STATUS 11/06/2018 ABDIRAHMAN BETTS TALYA B Ot Z91.0 48 OTHER NONMEDICINAL SUBSTANCE ALLERGY STA 11/06/2018 ABDIRAHMAN BETTS TALYA B Ot Z93.2 ILEOSTOMY STATUS 12/12/2018 DEFFENBAUGH DORASHIDARY D Ot R10.9 UNSPECIFIED ABDOMINAL PAIN 12/12/2018 DEFFENBAUGH DO, RONEY D Ot R11.2 NAUSEA WITH VOMITING, UNSPECIFIED 02/03/2019 ALEXANDRA FORMAN DO S Ot E28.2 POLYCYSTIC OVARIAN SYNDROME 02/03/2019 FENJAIRO DOALEXANDRA S Ot M54.2 CERVICALGIA 02/03/2019 FENECH DOALEXANDRA S Ot M54.5 LOW BACK PAIN 02/03/2019 ALEXANDRA FORMAN DO S Ot M79.7 FIBROMYALGIA 02/03/2019 TJJAIRO DOALEXANDRA S Ot N39.3 STRESS INCONTINENCE (FEMALE) (MALE) 02/03/2019 TJECH DOALEXANDRA S Ot Z93.2 ILEOSTOMY STATUS 02/24/2019 FENECH DOALEXANDRA S Ot E28.2 POLYCYSTIC OVARIAN SYNDROME 02/24/2019 FENECH DOALEXANDRA S Ot M54.2 CERVICALGIA 02/24/2019 FENECH DO, ALEXANDRA S Ot M54.5 LOW BACK PAIN 02/24/2019 TJJAIRO DOALEXANDRA S Ot M79.7 FIBROMYALGIA 02/24/2019 TJJAIRO DOALEXANDRA S Ot N39.3 STRESS INCONTINENCE (FEMALE) (MALE) 02/24/2019 FENECH DO ALEXANDRA S Ot Z93.2 ILEOSTOMY STATUS 02/27/2019 FENECH DO, ALEXANDRA S Ot E28.2 POLYCYSTIC OVARIAN SYNDROME 02/27/2019 FENECH DOALEXANDRA S Ot M54.2 CERVICALGIA 02/27/2019 FENECH DOALEXANDRA S Ot M54.5 LOW BACK PAIN 02/27/2019 FENECH DO, ALEXANDRA S Ot M79.7 FIBROMYALGIA 02/27/2019 FENECH DOALEXANDRA S Ot N39.3 STRESS INCONTINENCE (FEMALE) (MALE) 02/27/2019 FENECH DOALEXANDRA S Ot Z93.2 ILEOSTOMY STATUS 03/05/2019 BHARTI MARTINEZ ASSEMBLER GOLD FRAME Ot K76.89 OTHER SPECIFIED DISEASES OF LIVER 03/05/2019 BHARTI MARTINEZ ASSEMBLER GOLD FRAME Ot R10.9 UNSPECIFIED ABDOMINAL PAIN 03/05/2019 BHARTI MARTINEZ ASSEMBLER GOLD FRAME Ot R31.9 HEMATURIA, UNSPECIFIED 03/05/2019 BHARTI MARTINEZ ASSEMBLER [employer]OLD FRAME Ot Z87.442 PERSONAL HISTORY OF URINARY CALCULI 03/05/2019 BHARTI MARTINEZ ASSEMBLER GOLD FRAME Ot Z90.49 ACQUIRED ABSENCE OF OTHER SPECIFIED PART 03/05/2019 BHARTI MARTINEZ ASSEMBLER GOLD FRAME Ot Z98.890 OTHER SPECIFIED POSTPROCEDURAL STATES 03/09/2019 YOANA GARRISON MD, Ot D64.9 ANEMIA, UNSPECIFIED 03/09/2019 YOANA GARRISON MD Ot E86.0 DEHYDRATION 03/09/2019 YOANA GARRISON MD Ot M79.7 FIBROMYALGIA 03/09/2019 YOANA GARRISON MD Ot N30.9 1 CYSTITIS, UNSPECIFIED WITH HEMATURIA 03/09/2019 YOANA GARRISON MD Ot R50.9 FEVER, UNSPECIFIED 03/09/2019 YOANA GARRISON MD, Ot Z87.1 9 PERSONAL HISTORY OF OTHER DISEASES OF TH 03/09/2019 YOANA GARRISON MD, Ot Z87.4 42 PERSONAL HISTORY OF URINARY CALCULI 03/09/2019 YOANA GARRISON MD Ot Z88.0 ALLERGY STATUS TO PENICILLIN 03/09/2019 YOANA GARRISON MD Ot Z88.1 ALLERGY STATUS TO OTHER ANTIBIOTIC AGENT 03/09/2019 YOANA GARRISON MD, Ot Z88.2 ALLERGY STATUS TO SULFONAMIDES STATUS 03/09/2019 YOANA GARRISON MD Ot Z88.5 ALLERGY STATUS TO NARCOTIC AGENT STATUS 03/09/2019 YOANA GARRISON MD Ot Z88.8 ALLERGY STATUS TO OTH DRUG/MEDS/BIOL SUB 03/09/2019 YOANA GARRISON MD, Ot Z90.4 9 ACQUIRED ABSENCE OF OTHER SPECIFIED PART 03/09/2019 YOANA GARRISON MD, Ot Z90.8 9 ACQUIRED ABSENCE OF OTHER ORGANS 03/09/2019 YOANA GARRISON MD Ot Z91.0 40 LATEX ALLERGY STATUS 03/11/2019 YOANA GARRISON MD, Ot D64.9 ANEMIA, UNSPECIFIED 03/11/2019 YOANA GARRISON MD Ot E86.0 DEHYDRATION 03/11/2019 YOANA GARRISON MD Ot M79.7 FIBROMYALGIA 03/11/2019 YOANA GARRISON MD Ot N30.9 1 CYSTITIS, UNSPECIFIED WITH HEMATURIA 03/11/2019 YOANA GARRISON MD Ot R50.9 FEVER, UNSPECIFIED 03/11/2019 YOANA GARRISON MD Ot Z87.1 9 PERSONAL HISTORY OF OTHER DISEASES OF TH 03/11/2019 YOANA GARRISON MD Ot Z87.4 42 PERSONAL HISTORY OF URINARY CALCULI 03/11/2019 YOANA GARRISON MD Ot Z88.0 ALLERGY STATUS TO PENICILLIN 03/11/2019 YOANA GARRISON MD Ot Z88.1 ALLERGY STATUS TO OTHER ANTIBIOTIC AGENT 03/11/2019 YOANA GARRISON MD Ot Z88.2 ALLERGY STATUS TO SULFONAMIDES STATUS 03/11/2019 YOANA GARRISON MD Ot Z88.5 ALLERGY STATUS TO NARCOTIC AGENT STATUS 03/11/2019 YOANA GARRISON MD Ot Z88.8 ALLERGY STATUS TO OTH DRUG/MEDS/BIOL SUB 03/11/2019 YOANA GARRISON MD Ot Z90.4 9 ACQUIRED ABSENCE OF OTHER SPECIFIED PART 03/11/2019 YOANA GARRISON MD Ot Z90.8 9 ACQUIRED ABSENCE OF OTHER ORGANS 03/11/2019 YOANA GARRISON MD Ot Z91.0 40 LATEX ALLERGY STATUS 03/14/2019 BHARTI MARTINEZ ASSEMBLER GOLD FRAME Ot M54.41 LUMBAGO WITH SCIATICA, RIGHT SIDE 03/14/2019 BHARTI MARTINEZ S ASSEMBLER GOLD FRAME Ot K76.89 OTHER SPECIFIED DISEASES OF LIVER 03/14/2019 BHARTI MARTINEZ S ASSEMBLER GOLD FRAME Ot R10.9 UNSPECIFIED ABDOMINAL PAIN 03/14/2019 BHARTI MARTINEZ S ASSEMBLER GOLD FRAME Ot R31.9 HEMATURIA, UNSPECIFIED 03/14/2019 BHARTI MARTINEZ S ASSEMBLER GOLD FRAME Ot Z87.442 PERSONAL HISTORY OF URINARY CALCULI 03/14/2019 BHARTI MARTINEZ S ASSEMBLER GOLD FRAME Ot Z90.49 ACQUIRED ABSENCE OF OTHER SPECIFIED PART 03/14/2019 BHARTI MARTINEZ ASSEMBLER GOLD FRAME Ot Z98.890 OTHER SPECIFIED POSTPROCEDURAL STATES 05/27/2019 RONEY MACK DO Ot K50.90 CROHN'S DISEASE, UNSPECIFIED, WITHOUT CO 05/27/2019 DEFFENBARONEY GUTHRIE DO Ot R79.89 OTHER SPECIFIED ABNORMAL FINDINGS OF BLO 05/28/2019 BHARTI MARTINEZ ASSEMBLER GOLD FRAME Ot J18.9 PNEUMONIA, UNSPECIFIED ORGANISM 05/28/2019 BHARTI MARTINEZ ASSEMBLER [employer] FRAME Ot J98.11 ATELECTASIS 06/03/2019 CONCEPCION DO, STEFFANIE L Ot R07.9 CHEST PAIN, UNSPECIFIED 06/03/2019 CONCEPCION DO, STEFFANIE L Ot R09.1 PLEURISY 06/03/2019 CONCEPCION DO, STEFFANIE L Ot Z88.0 ALLERGY STATUS TO PENICILLIN 06/03/2019 CONCEPCION DO, STEFFANIE L Ot Z88.1 ALLERGY STATUS TO OTHER ANTIBIOTIC AGENT 06/03/2019 CONCEPCION DO, STEFFANIE L Ot Z88.2 ALLERGY STATUS TO SULFONAMIDES STATUS 06/03/2019 CONCEPCION DO, STEFFANIE L Ot Z88.8 ALLERGY STATUS TO OTH DRUG/MEDS/BIOL SUB 06/03/2019 CONCEPCION DO, STEFFANIE L Ot Z91.0 40 LATEX ALLERGY STATUS 06/06/2019 DEFFENBARONEY GUTHRIE DO Ot K50.90 CROHN'S DISEASE, UNSPECIFIED, WITHOUT CO 06/06/2019 YANNIFENBARONEY GUTHRIE DO Ot R79.89 OTHER SPECIFIED ABNORMAL FINDINGS OF BLO 06/06/2019 BHARTI MARTINEZ ASSEMBLER GOLD FRAME Ot J18.9 PNEUMONIA, UNSPECIFIED ORGANISM 06/06/2019 HBARTI MARTINEZ ASSEMBLER GOLD FRAME Ot J98.11 ATELECTASIS 06/06/2019 MENCHACA DO, KEILY K Ot D64.9 ANEMIA, UNSPECIFIED 06/06/2019 MENCHACA DO, KEILY K Ot E78.5 HYPERLIPIDEMIA, UNSPECIFIED 06/06/2019 MENCHACA DO, KEILY K Ot E86.0 DEHYDRATION 06/06/2019 MENCHACA DO, KEILY K Ot F32.9 MAJOR DEPRESSIVE DISORDER, SINGLE EPISOD 06/06/2019 MENCHACA DO, KEILY K Ot F41.9 ANXIETY DISORDER, UNSPECIFIED 06/06/2019 MENCHACA DO, KEILY K Ot I10 ESSENTIAL (PRIMARY) HYPERTENSION 06/06/2019 MENCHACA DO KEILY K Ot K21.9 GASTRO-ESOPHAGEAL REFLUX DISEASE WITHOUT 06/06/2019 MENCHACA DO, KEILY K Ot K50.90 CROHN'S DISEASE, UNSPECIFIED, WITHOUT CO 06/06/2019 MENCHACA DO, KEILY Alonso Ot L30.9 DERMATITIS, UNSPECIFIED 06/06/2019 MENCHACA DO, KEILY Alonso Ot M79.7 FIBROMYALGIA 06/06/2019 MENCHACA DO, KEILY Alonso Ot R00.0 TACHYCARDIA, UNSPECIFIED 06/06/2019 MENCHACA DO, KEILY Alonso Ot R09.1 PLEURISY 06/06/2019 MENCHACA DO, KEILY Alonso Ot Z82.49 FAMILY HX OF ISCHEM HEART DIS AND OTH DI 06/06/2019 MENCHACA DO, KEILY Alonso Ot Z90.49 ACQUIRED ABSENCE OF OTHER SPECIFIED PART 06/06/2019 MENCHACA DO, KEILY Alonso Ot Z90.89 ACQUIRED ABSENCE OF OTHER ORGANS 06/06/2019 MENCHACA DO, KEILY Alonso Ot Z93.3 COLOSTOMY STATUS Procedures There is no data. Results Test Result Range Complete urinalysis with reflex to cultu re - 04/23/17 08:08 Urine color determination YELLOW NRG Urine clarity determination VERY CLOUDY NRG Urine pH measurement by test strip 5 5-9 Specific gravity of urine by test strip 1.030 1.016-1.022 Urine protein assay by test strip, semi-quantitative 2+ NEGATIVE Urine glucose detection by automated test strip NE GATIVE NEGATIVE Erythrocytes detection in urine sediment by light micr oscopy 3+ NEGATIVE Urine ketones detection by automated test strip NE GATIVE NEGATIVE Urine nitrite detection by test strip NEGATIVE NEGATIVE Urine total bilirubin detection by test strip NEGA TIVE NEGATIVE Urine urobilinogen measurement by automated test strip (mass/volume) NORMAL NORMAL Urine leukocyte esterase detection by dipstick 3+ NEGATIVE Automated urine sediment erythrocyte cou nt by microscopy (number/high power field) NONE NRG Automated urine sediment leukocyte count by microscopy (number/high power field) [HPF] NRG Bacteria detection in urine sediment by light microsco py LARGE NRG Crystals detection in urine sediment by light microsco py NONE NRG Casts detection in urine sediment by light microscopy NONE NRG Mucus detection in urine sediment by light microscopy MODERATE NRG Complete urinalysis with reflex to culture YES NRG Bacterial urine culture - 04/23/17 08:08 URINE CULTURE RESULTS MORE THAN 3 ISOLATES NRG Comprehensive metabolic panel - 04/23/17 08:30 Serum or plasma sodium measurement (moles/volume) 138 mmol/L 135-145 Serum or plasma potassium measurement (moles/volume) 3.6 mmol/L 3.6-5.0 Serum or plasma chloride measurement (moles/volume) 107 mmol/L 98-107 Carbon dioxide 16 mmol/L 21-32 Serum or plasma anion gap determination (moles/volume) 15 mmol/L 5-14 Serum or plasma urea nitrogen measurement (mass/volume ) 12 mg/dL 7-18 Serum or plasma creatinine measurement (mass/volume) 0.76 mg/dL 0.60-1.30 Serum or plasma urea nitrogen/creatinine mass ratio 16 NRG Serum or plasma creatinine measurement w ith calculation of estimated glomerular filtration rate > NRG Serum or plasma glucose measurement (mass/volume) 116 mg/dL 70-105 Serum or plasma calcium measurement (mass/volume) 9.3 mg/dL 8.5-10.1 Serum or plasma total bilirubin measurement (mass/volu me) 0.8 mg/dL 0.1-1.0 Serum or plasma alkaline phosphatase ivy surement (enzymatic activity/volume) 55 U/L 40-136 Serum or plasma aspartate aminotransfera se measurement (enzymatic activity/volume) 27 U/L 5-34 Serum or plasma alanine aminotransferase measurement (enzymatic activity/volume) 23 U/L 0-55 Serum or plasma protein measurement (mass/volume) 7.4 g/dL 6.4-8.2 Serum or plasma albumin measurement (mass/volume) 4.1 g/dL 3.2-4.5 Serum or plasma choriogonadotropin (preg jerry test) detection - 04/23/17 08:30 Serum or plasma choriogonadotropin ( test) de tection NEGATIVE NEGATIVE Complete blood count (CBC) with automate d white blood cell (WBC) differential - 04/23/17 08:30 Blood leukocytes automated count (number/volume) 11.5 10*3/uL 4.3-11.0 Blood erythrocytes automated count (number/volume) 4.26 10*6/uL 4.35-5.85 Venous blood hemoglobin measurement (mass/volume) 12.7 g/dL 11.5-16.0 Blood hematocrit (volume fraction) 39 % 35-52 Automated erythrocyte mean corpuscular volume 91 [ foz_us] 80-99 Automated erythrocyte mean corpuscular h emoglobin (mass per erythrocyte) 30 pg 25-34 Automated erythrocyte mean corpuscular h emoglobin concentration measurement (mass/volume) 33 g/dL 32-36 Automated erythrocyte distribution width ratio 13. 8 % 10.0- 14.5 Automated blood platelet count [...] 10*3 1.0-4.0 Blood monocytes automated count (number/volume) 0. 5 10*3 0.0-1.0 Automated eosinophil count 0.1 10*3/uL 0 .0-0.3 Automated blood basophil count (count/volume) 0.0 10*3/uL 0.0-0.1 Blood blood smear finding identification by light micr oscopy YES NRG Complete blood count (CBC) with automate d white blood cell (WBC) differential - 06/04/18 10:23 Blood leukocytes automated count (number/volume) 8.9 10*3/uL 4.3-11.0 Blood erythrocytes automated count (number/volume) 4.59 10*6/uL 4.35-5.85 Venous blood hemoglobin measurement (mass/volume) 13.6 g/dL 11.5-16.0 Blood hematocrit (volume fraction) 42 % 35-52 Automated erythrocyte mean corpuscular volume 91 [ foz_us] 80-99 Automated erythrocyte mean corpuscular h emoglobin (mass per erythrocyte) 30 pg 25-34 Automated erythrocyte mean corpuscular h emoglobin concentration measurement (mass/volume) 33 g/dL 32-36 Automated erythrocyte distribution width ratio 13. 9 % 10.0- 14.5 Automated blood platelet count [...] 10*3 1.0-4.0 Blood monocytes automated count (number/volume) 0. 4 10*3 0.0-1.0 Automated eosinophil count 0.1 10*3/uL 0 .0-0.3 Automated blood basophil count (count/volume) 0.0 10*3/uL 0.0-0.1 Comprehensive metabolic panel - 06/04/18 10:23 Serum or plasma sodium measurement (moles/volume) 139 mmol/L 135-145 Serum or plasma potassium measurement (moles/volume) 4.0 mmol/L 3.6-5.0 Serum or plasma chloride measurement (moles/volume) 108 mmol/L 98-107 Carbon dioxide 20 mmol/L 21-32 Serum or plasma anion gap determination (moles/volume) 11 mmol/L 5-14 Serum or plasma urea nitrogen measurement (mass/volume ) 12 mg/dL 7-18 Serum or plasma creatinine measurement (mass/volume) 0.77 mg/dL 0.60-1.30 Serum or plasma urea nitrogen/creatinine mass ratio 16 NRG Serum or plasma creatinine measurement w ith calculation of estimated glomerular filtration rate > NRG Serum or plasma glucose measurement (mass/volume) 97 mg/dL 70-105 Serum or plasma calcium measurement (mass/volume) 10.1 mg/dL 8.5-10.1 Serum or plasma total bilirubin measurement (mass/volu me) 0.6 mg/dL 0.1-1.0 Serum or plasma alkaline phosphatase ivy surement (enzymatic activity/volume) 65 U/L 40-136 Serum or plasma aspartate aminotransfera se measurement (enzymatic activity/volume) 40 U/L 5-34 Serum or plasma alanine aminotransferase measurement (enzymatic activity/volume) 32 U/L 0-55 Serum or plasma protein measurement (mass/volume) 7.4 g/dL 6.4-8.2 Serum or plasma albumin measurement (mass/volume) 4.1 g/dL 3.2-4.5 CALCIUM CORRECTED 10.0 mg/dL 8.5-10.1 Methicillin resistant Staphylococcus aur eus (MRSA) screening culture - 10/30/18 07:12 Methicillin resistant Staphylococcus aureus (MRSA) scr eening culture NEG NRG CULTURE, URINE - 02/28/19 09:57 CULTURE, URINE, ROUTINE SEE NOTE NRG VITAMIN D, 25-H - 03/03/19 09:51 VITAMIN D,25-OH,TOTAL,IA 23 ng/mL 30-10 0 A1C - 03/03/19 09:51 HEMOGLOBIN A1c 5.5 % of total Hgb <5.7 VITAMIN B12 - 03/03/19 09:51 VITAMIN B12 672 pg/mL 200-1100 Complete urinalysis with reflex to cultu re - 03/09/19 00:08 Urine color determination YELLOW NRG Urine clarity determination CLOUDY NR G Urine pH measurement by test strip 5.5 5-9 Specific gravity of urine by test strip >= 1.016-1.022 Urine protein assay by test strip, semi-quantitative NEGATIVE NEGATIVE Urine glucose detection by automated test strip NE GATIVE NEGATIVE Erythrocytes detection in urine sediment by light micr oscopy 1+ NEGATIVE Urine ketones detection by automated test strip TR RONALD NEGATIVE Urine nitrite detection by test strip NEGATIVE NEGATIVE Urine total bilirubin detection by test strip IMTIAZ NEGATIVE Urine urobilinogen measurement by automated test strip (mass/volume) 0.2 mg/dL < = 1.0 Urine leukocyte esterase detection by dipstick TRA CE NEGATIVE Automated urine sediment erythrocyte cou nt by microscopy (number/high power field) [HPF] NRG Automated urine sediment leukocyte count by microscopy (number/high power field) [HPF] NRG Bacteria detection in urine sediment by light microsco py FEW NRG Squamous epithelial cells detection in u rine sediment by light microscopy 25-50 NRG Crystals detection in urine sediment by light microsco py NONE NRG Casts detection in urine sediment by light microscopy NONE NRG Mucus detection in urine sediment by light microscopy MODERATE NRG Complete urinalysis with reflex to culture YES NRG Bacterial urine culture - 03/09/19 00:08 Bacterial urine culture 3 OR MORE NRG COLONY COUNT 50,000 CFU/ML NRG FTX;REPORTABLE SUGGESTING PROBABLE COLLECTION NRG FREE TEXT ENTRY 2 CONTAMINATION WITH SKIN SARWAT NRG FREE TEXT ENTRY 3 NO SUSCEPTIBILITY PERFORMED NRG Urine beta human chorionic gonadotropin (hCG) measurement - 03/09/19 00:11 Urine beta human chorionic gonadotropin (hCG) measurem ent NEGATIVE NEGATIVE Complete blood count (CBC) with automate d white blood cell (WBC) differential - 03/09/19 00:35 Blood leukocytes automated count (number/volume) 12.5 10*3/uL 4.3-11.0 Blood erythrocytes automated count (number/volume) 4.41 10*6/uL 4.35-5.85 Venous blood hemoglobin measurement (mass/volume) 12.9 g/dL 11.5-16.0 Blood hematocrit (volume fraction) 40 % 35-52 Automated erythrocyte mean corpuscular volume 90 [ foz_us] 80-99 Automated erythrocyte mean corpuscular h emoglobin (mass per erythrocyte) 29 pg 25-34 Automated erythrocyte mean corpuscular h emoglobin concentration measurement (mass/volume) 33 g/dL 32-36 Automated erythrocyte distribution width ratio 13. 8 % 10.0- 14.5 Automated blood platelet count (count/volume) 418 10*3/uL 130-400 Automated blood platelet mean volume measurement 9.2 [foz_us] 7.4-10.4 Automated blood neutrophils/100 leukocytes 64 % 42-75 Automated blood lymphocytes/100 leukocytes 29 % 12-44 Blood monocytes/100 leukocytes 5 % 0-12 Automated blood eosinophils/100 leukocytes 1 % 0-10 Automated blood basophils/100 leukocytes 0 % 0-10 Blood neutrophils automated count (number/volume) 8.0 10*3 1.8-7.8 Blood lymphocytes automated count (number/volume) 3.7 10*3 1.0-4.0 Blood monocytes automated count (number/volume) 0. 7 10*3 0.0-1.0 Automated eosinophil count 0.1 10*3/uL 0 .0-0.3 Automated blood basophil count (count/volume) 0.0 10*3/uL 0.0-0.1 Comprehensive metabolic panel - 03/09/19 00:35 Serum or plasma sodium measurement (moles/volume) 139 mmol/L 135-145 Serum or plasma potassium measurement (moles/volume) 3.7 mmol/L 3.6-5.0 Serum or plasma chloride measurement (moles/volume) 101 mmol/L 98-107 Carbon dioxide 21 mmol/L 21-32 Serum or plasma anion gap determination (moles/volume) 17 mmol/L 5-14 Serum or plasma urea nitrogen measurement (mass/volume ) 11 mg/dL 7-18 Serum or plasma creatinine measurement (mass/volume) 0.76 mg/dL 0.60-1.30 Serum or plasma urea nitrogen/creatinine mass ratio 14 NRG Serum or plasma creatinine measurement w ith calculation of estimated glomerular filtration rate > NRG Serum or plasma glucose measurement (mass/volume) 107 mg/dL 70-105 Serum or plasma calcium measurement (mass/volume) 9.7 mg/dL 8.5-10.1 Serum or plasma total bilirubin measurement (mass/volu me) 0.5 mg/dL 0.1-1.0 Serum or plasma alkaline phosphatase ivy surement (enzymatic activity/volume) 55 U/L 40-136 Serum or plasma aspartate aminotransfera se measurement (enzymatic activity/volume) 28 U/L 5-34 Serum or plasma alanine aminotransferase measurement (enzymatic activity/volume) 19 U/L 0-55 Serum or plasma protein measurement (mass/volume) 7.3 g/dL 6.4-8.2 Serum or plasma albumin measurement (mass/volume) 4.1 g/dL 3.2-4.5 CALCIUM CORRECTED 9.6 mg/dL 8.5-10.1 Magnesium - 03/09/19 00:35 Magnesium 1.9 mg/dL 1.6-2.4 COMPLETE BLOOD COUNT W/DIFF - 05/19/19 2 0:35 HEMOGLOBIN 14.0 g/dL 12.0-16.0 PLATELET COUNT 359 10 3 uL 130-400 WHITE BLOOD CELL COUNT 11.2 10 3/uL 4.5- 11.0 NEUTROPHIL% 69.3 % 43.0-72.0 LYMPHOCYTE% 23.4 % 15.0-45.0 MONOCYT% 5.3 % 1.0-12.0 EOSINOPHIL% 0.9 % 0.0-6.0 BASOPHIL% 1.1 % 0.0-2.0 NEUTROPHIL# 7.8 10 3 uL 1.0-8.0 LYMPHOCYTE# 2.6 10 3 uL 1.0-3.0 MONOCYTE# 0.6 10 3 uL 0.0-1.0 EOSINOPHIL# 0.1 10 3 uL 0.0-0.4 BASOPHIL# 0.1 10 3 uL 0.0-0.2 HEMATOCRIT 43.3 % 36-48 MEAN CORPUSCULAR VOLUME 89.4 fL 79-99 MEAN CORPUSCULAR HEMOGLOBIN 28.8 pg 25 .0-34.0 MEAN CELL HEMOGLOBIN CONC. 32.2 g/dL 31. 0-36.0 RED CELL DISTRIBUTION WIDTH 13.8 % 11 .0-15.0 MEAN PLATELET VOLUME 8.3 fL 7.0-11.0 Red Blood Count 4.85 10 6/uL 3.50-5.40 Comprehensive Metabolic Panel - 05/19/19 20:35 BILIRUBIN TOTAL 0.9 mg/dL 0.0-1.2 BUN 10 mg/dL 5-21 CHLORIDE 105 mmol/L 100-112 CARBON DIOXIDE 22 mEq/L 18-30 POTASSIUM 4.0 mmol/L 3.4-5.2 SODIUM 142 mmol/L 135-150 GFR ESTIMATE > 60 mL/Min > 60 Anion Gap 15 mmol/L 8-11 Creatinine 0.78 mg/dL 0.60-1.30 Glucose 86 mg/dL 70-99 Calcium 10.2 mg/dL 8.6-10.5 Aspartate Amino Transferase 23 U/L 6- 37 Alanine Aminotransferase 32 U/L 12-78 Total Protein 7.8 g/dL 6.4-8.2 Albumin 4.0 g/dL 3.3-4.5 Albumin/Globulin Ratio 1.1 0.7-2.0 Alkaline Phosphatase 66 U/L 50-136 Troponin I (x1) - 05/19/19 20:35 TROPONIN-I ONLY < 0.01 ng/mL 0.00-0.05 LIPID PANEL - 05/27/19 12:15 CHOLESTEROL, TOTAL 247 mg/dL <200 HDL CHOLESTEROL 80 mg/dL > OR = 50 TRIGLYCERIDES 269 mg/dL <150 LDL-CHOLESTEROL 126 mg/dL (calc) NRG CHOL/HDLC RATIO 3.1 (calc) <5.0 NON HDL CHOLESTEROL 167 mg/dL (calc) <13 0 CMP - 05/27/19 12:15 GLUCOSE 96 mg/dL 65-99 UREA NITROGEN (BUN) 10 mg/dL 7-25 CREATININE 0.64 mg/dL 0.50-1.10 eGFR NON-AFR. NEPALESE 119 mL/min/1.73m2 > OR = 60 eGFR 138 mL/min/1.73m2 > OR = 60 BUN/CREATININE RATIO NOT APPLICABLE (calc) 6-22 SODIUM 140 mmol/L 135-146 POTASSIUM 4.2 mmol/L 3.5-5.3 CHLORIDE 107 mmol/L 98-110 CARBON DIOXIDE 18 mmol/L 20-32 CALCIUM 9.8 mg/dL 8.6-10.2 PROTEIN, TOTAL 7.1 g/dL 6.1-8.1 ALBUMIN 4.3 g/dL 3.6-5.1 GLOBULIN 2.8 g/dL (calc) 1.9-3.7 ALBUMIN/GLOBULIN RATIO 1.5 (calc) 1.0-2. 5 BILIRUBIN, TOTAL 0.6 mg/dL 0.2-1.2 ALKALINE PHOSPHATASE 75 U/L 31-125 AST 40 U/L 10-30 ALT 41 U/L 6-29 Complete blood count (CBC) with automate d white blood cell (WBC) differential - 06/03/19 00:10 Blood leukocytes automated count (number/volume) 13.6 10*3/uL 4.3-11.0 Blood erythrocytes automated count (number/volume) 4.47 10*6/uL 4.35-5.85 Venous blood hemoglobin measurement (mass/volume) 13.1 g/dL 11.5-16.0 Blood hematocrit (volume fraction) 40 % 35-52 Automated erythrocyte mean corpuscular volume 90 [ foz_us] 80-99 Automated erythrocyte mean corpuscular h emoglobin (mass per erythrocyte) 29 pg 25-34 Automated erythrocyte mean corpuscular h emoglobin concentration measurement (mass/volume) 33 g/dL 32-36 Automated erythrocyte distribution width ratio 13. 5 % 10.0- 14.5 Automated blood platelet count (count/volume) 438 10*3/uL 130-400 Automated blood platelet mean volume measurement 9.3 [foz_us] 7.4-10.4 Automated blood neutrophils/100 leukocytes 68 % 42-75 Automated blood lymphocytes/100 leukocytes 27 % 12-44 Blood monocytes/100 leukocytes 5 % 0-12 Automated blood eosinophils/100 leukocytes 0 % 0-10 Automated blood basophils/100 leukocytes 0 % 0-10 Blood neutrophils automated count (number/volume) 9.3 10*3 1.8-7.8 Blood lymphocytes automated count (number/volume) 3.6 10*3 1.0-4.0 Blood monocytes automated count (number/volume) 0. 6 10*3 0.0-1.0 Automated eosinophil count 0.0 10*3/uL 0 .0-0.3 Automated blood basophil count (count/volume) 0.0 10*3/uL 0.0-0.1 Fibrin D-dimer FEU measurement in platel et poor plasma (mass/volume) - 06/03/19 00:10 Fibrin D-dimer FEU measurement in platelet poor plasma (mass/volume) 0.37 ug/mL 0.00-0.49 Comprehensive metabolic panel - 06/03/19 00:10 Serum or plasma sodium measurement (moles/volume) 140 mmol/L 135-145 Serum or plasma potassium measurement (moles/volume) 3.6 mmol/L 3.6-5.0 Serum or plasma chloride measurement (moles/volume) 101 mmol/L 98-107 Carbon dioxide 22 mmol/L 21-32 Serum or plasma anion gap determination (moles/volume) 17 mmol/L 5-14 Serum or plasma urea nitrogen measurement (mass/volume ) 11 mg/dL 7-18 Serum or plasma creatinine measurement (mass/volume) 0.69 mg/dL 0.60-1.30 Serum or plasma urea nitrogen/creatinine mass ratio 16 NRG Serum or plasma creatinine measurement w ith calculation of estimated glomerular filtration rate > NRG Serum or plasma glucose measurement (mass/volume) 102 mg/dL 70-105 Serum or plasma calcium measurement (mass/volume) 10.0 mg/dL 8.5-10.1 Serum or plasma total bilirubin measurement (mass/volu me) 0.4 mg/dL 0.1-1.0 Serum or plasma alkaline phosphatase ivy surement (enzymatic activity/volume) 67 U/L 40-136 Serum or plasma aspartate aminotransfera se measurement (enzymatic activity/volume) 37 U/L 5-34 Serum or plasma alanine aminotransferase measurement (enzymatic activity/volume) 48 U/L 0-55 Serum or plasma protein measurement (mass/volume) 7.8 g/dL 6.4-8.2 Serum or plasma albumin measurement (mass/volume) 4.5 g/dL 3.2-4.5 CALCIUM CORRECTED 9.6 mg/dL 8.5-10.1 PROBNP FS - 06/03/19 00:10 PROBNP FS 29.5 pg/mL <75.0 Complete blood count (CBC) with automate d white blood cell (WBC) differential - 06/05/19 18:35 Blood leukocytes automated count (number/volume) 13.2 10*3/uL 4.3-11.0 Blood erythrocytes automated count (number/volume) 4.63 10*6/uL 4.35-5.85 Venous blood hemoglobin measurement (mass/volume) 13.4 g/dL 11.5-16.0 Blood hematocrit (volume fraction) 42 % 35-52 Automated erythrocyte mean corpuscular volume 91 [ foz_us] 80-99 Automated erythrocyte mean corpuscular h emoglobin (mass per erythrocyte) 29 pg 25-34 Automated erythrocyte mean corpuscular h emoglobin concentration measurement (mass/volume) 32 g/dL 32-36 Automated erythrocyte distribution width ratio 13. 4 % 10.0- 14.5 Automated blood platelet count (count/volume) 392 10*3/uL 130-400 Automated blood platelet mean volume measurement 9.9 [foz_us] 7.4-10.4 Automated blood neutrophils/100 leukocytes 87 % 42-75 Automated blood lymphocytes/100 leukocytes 10 % 12-44 Blood monocytes/100 leukocytes 2 % 0-12 Automated blood eosinophils/100 leukocytes 0 % 0-10 Automated blood basophils/100 leukocytes 0 % 0-10 Blood neutrophils automated count (number/volume) 11.5 10*3 1.8-7.8 Blood lymphocytes automated count (number/volume) 1.3 10*3 1.0-4.0 Blood monocytes automated count (number/volume) 0. 2 10*3 0.0-1.0 Automated eosinophil count 0.0 10*3/uL 0 .0-0.3 Automated blood basophil count (count/volume) 0.0 10*3/uL 0.0-0.1 Comprehensive metabolic panel - 06/05/19 18:35 Serum or plasma sodium measurement (moles/volume) 138 mmol/L 135-145 Serum or plasma potassium measurement (moles/volume) 5.1 mmol/L 3.6-5.0 Serum or plasma chloride measurement (moles/volume) 101 mmol/L 98-107 Carbon dioxide 18 mmol/L 21-32 Serum or plasma anion gap determination (moles/volume) 19 mmol/L 5-14 Serum or plasma urea nitrogen measurement (mass/volume ) 10 mg/dL 7-18 Serum or plasma creatinine measurement (mass/volume) 0.71 mg/dL 0.60-1.30 Serum or plasma urea nitrogen/creatinine mass ratio 14 NRG Serum or plasma creatinine measurement w ith calculation of estimated glomerular filtration rate > NRG Serum or plasma glucose measurement (mass/volume) 168 mg/dL 70-105 Serum or plasma calcium measurement (mass/volume) 10.1 mg/dL 8.5-10.1 Serum or plasma total bilirubin measurement (mass/volu me) 0.6 mg/dL 0.1-1.0 Serum or plasma alkaline phosphatase ivy surement (enzymatic activity/volume) 62 U/L 40-136 Serum or plasma aspartate aminotransfera se measurement (enzymatic activity/volume) 29 U/L 5-34 Serum or plasma alanine aminotransferase measurement (enzymatic activity/volume) 35 U/L 0-55 Serum or plasma protein measurement (mass/volume) 7.6 g/dL 6.4-8.2 Serum or plasma albumin measurement (mass/volume) 4.3 g/dL 3.2-4.5 CALCIUM CORRECTED 9.9 mg/dL 8.5-10.1 TROPONIN I FS - 06/05/19 18:35 TROPONIN I FS < 0.30 <0.30 PROBNP FS - 06/05/19 18:35 PROBNP FS 13.7 pg/mL <75.0 Blood lactic acid measurement (moles/vol ume) - 06/05/19 18:45 Blood lactic acid measurement (moles/volume) 3.55 mmol/L 0.50-2.00 Complete urinalysis with reflex to cultu re - 06/05/19 19:00 Urine color determination PALE YELLOW N RG Urine clarity determination SLT CLOUDY NRG Urine pH measurement by test strip 5.5 5-9 Specific gravity of urine by test strip <= 1.016-1.022 Urine protein assay by test strip, semi-quantitative NEGATIVE NEGATIVE Urine glucose detection by automated test strip NE GATIVE NEGATIVE Erythrocytes detection in urine sediment by light micr oscopy TRACE NEGATIVE Urine ketones detection by automated test strip NE GATIVE NEGATIVE Urine nitrite detection by test strip NEGATIVE NEGATIVE Urine total bilirubin detection by test strip NEGA TIVE NEGATIVE Urine urobilinogen measurement by automated test strip (mass/volume) 0.2 mg/dL < = 1.0 Urine leukocyte esterase detection by dipstick TRA CE NEGATIVE Automated urine sediment erythrocyte cou nt by microscopy (number/high power field) RARE NRG Automated urine sediment leukocyte count by microscopy (number/high power field) RARE NRG Bacteria detection in urine sediment by light microsco py TRACE NRG Squamous epithelial cells detection in u rine sediment by light microscopy 10-25 NRG Crystals detection in urine sediment by light microsco py NONE NRG Casts detection in urine sediment by light microscopy NONE NRG Mucus detection in urine sediment by light microscopy NONE NRG Complete urinalysis with reflex to culture NO NRG Serum or plasma lactate measurement (mol es/volume) - 06/05/19 21:03 Serum or plasma lactate measurement (moles/volume) 2.07 mmol/L 0.50-2.00 Serum or plasma troponin i.cardiac measu rement (mass/volume) - 06/06/19 01:29 Serum or plasma troponin i.cardiac measurement (mass/v olume) < ng/mL <0.028 Serum or plasma troponin i.cardiac measu rement (mass/volume) - 06/06/19 06:00 Serum or plasma troponin i.cardiac measurement (mass/v olume) < ng/mL <0.028 Lipid 1996 panel - 06/06/19 06:00 Serum or plasma triglyceride measurement (mass/volume) 164 mg/dL <150 Serum or plasma cholesterol measurement (mass/volume) 155 mg/dL < 200 Serum or plasma cholesterol in HDL measurement (mass/v olume) 70 mg/dL 40-60 Cholesterol in LDL [mass/volume] in serum or plasma by direct assay 57 mg/dL 1-129 Serum or plasma cholesterol in VLDL measurement (mass/ volume) 33 mg/dL 5-40 Fibrin D-dimer FEU measurement in platel et poor plasma (mass/volume) - 06/06/19 13:51 Fibrin D-dimer FEU measurement in platelet poor plasma (mass/volume) < ug/mL 0.00-0.49 Radiology Report from [id number] on 21:22:00 [facility] [address] [place] [address] XRay Report Signed Patient: Maureen Bautista MR#: [id number] : 1985 Acct:[id number] Age/Sex: 33 / F ADM Date: 05/19/19 Loc: ED Attending Provider: Ordering Provider: Martha Arellano Date of Service: 05/19/19 Procedure(s): XR chest 1V Accession Number(s): [id number] EXAM: Portable Chest INDICATION: Chest pain TECHNIQUE: Portable AP view COMPARISON: None FINDINGS: Heart size is upper limits of normal without pulmonary venous congestion. Focal and patchy opacities in the lateral left lung base with blunting of the left costophrenic sulcus. No evidence of significant pleural effusion. No pneumothorax. Monitor leads overlie the patient. The visualized osseous structures are grossly unremarkable. IMPRESSION: Focal and patchy opacity lateral left lung base which could be due to prominent epicardial fat pad, scarring, atelectasis, or pneumonia. Follow-up chest x-ray in 6-8 weeks following appropriate therapy recommended for re-evaluation. Dictated By: Taya Kiser MD Signed By: 05/19/192121 DD/ 21 TD/TT: Educational Assistant Teacher: BRIAN cc: , ; Martha Arellano Encounters ACCT No. Visit Date/Time Discharge Status Pt. Type Provider Facility Loc./Unit Complaint [id number] 06/13/2018 19:41:00 ACT Unknown Thiago MANNING, Erma Parks [id number] 05/19/2019 18:43:00 22:56:00 DIS Emergency Martha Arellano ([facility]) [facility] ED Chest Pain [id number] 06/10/2019 14:00:00 ACT [facility] [id number] 05/27/2019 10:40:00 Document Registration [id number] 03/03/2019 09:45:00 Document Registration [id number] 02/28/2019 09:20:00 Document Registration [id number] 06/05/2019 22:46:00 17:07:00 DIS Inpatient YUSRA MENCHACA DOA [facility] 4TH CHEST PAIN,TACHYCARDIA [id number] 06/02/2019 21:51:00 01:17:00 DIS Emergency STEFFANIE CONCEPCION DO [facility] ER FS CHEST PAIN [id number] 05/27/2019 12:03:00 23:59:59 CLS Outpatient BHARTI MARTINEZ [employer] [facility] RAD FS J18.9 [id number] 03/12/2019 15:00:00 23:59:59 CLS Outpatient BHARTI MARTINEZ [employer] [facility] RAD FS M54.41 [id number] 03/08/2019 23:51:00 01:59:00 DIS Emergency BLADIMIR MANNING, YOANA Cooley [facility] ER FS CRAMPING; FEVER; NAUS; SUPRAPUBIC PN; URINARY FREQ [id number] 03/03/2019 10:07:00 23:59:59 CLS Outpatient MICHELLE BHARTI S [employer] [facility] RAD FS HX OF KIDNEY STONES [id number] 02/25/2019 00:10:00 23:59:59 CLS Preadmit ALEXANDRA FORMAN DO [facility] REHAB CHRONIC BACK PAIN; MAST ALGIA [id number] 01/28/2019 11:15:00 00:01:00 DIS Outpatient ALEXANDRA FORMAN DO [facility] REHAB CHRONIC BACK PAIN; MAS TALGIA [id number] 12/10/2018 08:16:00 23:59:59 CLS Outpatient RONEY MACK DO [facility] CARD NAUSEA W/ VOMIT ING,ABD PAIN [id number] 10/30/2018 06:53:00 11:00:00 DIS Outpatient TALYA GARY DO [facility] SDC LEFT BREAST MASS [id number] 10/16/2018 14:00:00 14:39:00 DIS Outpatient TALYA GARY DO [facility] PREOP LEFT BREAST MASS [id number] 10/03/2018 08:55:00 23:59:59 CLS Outpatient ALEXANDRA FORMAN DO [facility] RAD BREAST LUMP OF L SIDE [id number] 06/04/2018 10:14:00 23:59:59 CLS Outpatient RONEY MACK DO [facility] LAB R79.89,K50.90 [id number] 04/18/2018 09:38:00 018 23:59:59 CLS Outpatient TJECH ALEXANDRA Ulloa [facility] RAD CYST OF BREAST [id number] 04/02/2018 13:18:00 018 23:59:59 CLS Outpatient TJJAIRO ALEXANDRA BETTS [facility] RAD CYST [id number] 06/20/2017 11:53:00 018 23:59:59 CLS Outpatient ALEXANDRA FORMAN DO [facility] RAD R10.2 PELVIC PRESSURE [id number] 04/23/2017 07:56:00 11:35:00 DIS Emergency GM MANNING, NASEEM Greene [facility] ER LOWER BACK PAIN [id number] 06/13/2019 09:15:00 P EN Preadmit BHARTI MARTINEZ APRN [facility] RAD FS CROHNS DISEASE OF LARGE INTE IVETT
--- OUTSIDE RECORDS SUMMARY | 2019-06-11 21:39 | XMS REPORT | Continuity of Care Document ---
Author Author [facility] Address [address] [place] [address] Phone Care Team Providers Care Care Advocate Name Role Phone Golden Cotton Jr Rndphys [...] 19, 2019 8:35p m 11.2 10^3/uL 4.5-11.0 [facility], [address] [place] [address] 26863 Red Blood Count May 19, 2019 8:35pm 4.85 10^6/uL 3.50-5.40 [facility], [address] [place] [address] 14594 Hemoglobin May 19, 2019 8:35pm 14.0 g/dL 12.0-16.0 [facility], [address] [place] [address] 04784 Hematocrit May 19, 2019 8:35pm 43.3 % 36-48 [facility], [address] [place] [address] 23450 Mean Corpuscular Volume April 8:35pm 89.4 fL 79-99 [facility], [address] [place] [address] 02404 Mean Corpuscular Hemoglobin May 19, 2019 8:35pm 28.8 pg 25.0-34.0 [facility], [address] [place] [address] 27242 Mean Corpuscular Hemoglobin Concent May 19, 2019 8:35pm 32.2 g/dL 31.0-36.0 [facility], [address] [place] [address] 79540 Red Cell Distribution Width May 19, 2019 8:35pm 13.8 % 11.0-15.0 [facility], [address] [place] [address] 64692 Platelet Count May 19, 2019 8:35pm 359 10^3 uL 130-400 [facility], [address] [place] [address] 76408 Mean Platelet Volume May 19, 020 8:35pm 8.3 fL 7.0-11.0 [facility], [address] [place] [address] 75110 Neutrophils (%) (Auto) May 19, 2019 8:35pm 69.3 % 43.0-72.0 [facility], [facility] [address] [place] [address] 32260 Lymphocytes (%) (Auto) May 19, 2019 8:35pm 23.4 % 15.0-45.0 [facility], [address] [place] [address] 57930 Monocytes (%) (Auto) May 19, 2 020 8:35pm 5.3 % 1.0-12.0 [facility], [address] [place] [address] 26149 Eosinophils (%) (Auto) May 19, 2019 8:35pm 0.9 % 0.0-6.0 [facility], [facility]. [address] [place] [address] 07444 Basophils (%) (Auto) May 19 8:35pm 1.1 % 0.0-2.0 [facility], [facility]. [address] [place], [place] [id number] Neutrophils # (Auto) May 19 8:35pm 7.8 10^3 uL 1.0-8.0 [facility], [facility] [address] [place] [address] 14893 Lymphocytes # (Auto) May 19 8:35pm 2.6 10^3 uL 1.0-3.0 [facility], [facility]. [address] [place] [address] 86122 Monocytes # (Auto) May 19 0 8:35pm 0.6 10^3 uL 0.0-1.0 [facility], [facility]. [address] [place] [address] 87327 Eosinophils # (Auto) May 19 8:35pm 0.1 10^3 uL 0.0-0.4 [facility], [facility]. [address] [place] [address] 23188 Basophils # (Auto) May 19 0 8:35pm 0.1 10^3 uL 0.0-0.2 [facility], [facility] [address] [place] [address] 65632 Sodium Level May 19, 2019 8:35pm 142 mmol/L 135-150 [facility], [facility] [address] [place] [address] 77393 Potassium Level May 19, 2019 8:35pm 4.0 mmol/L 3.4-5.2 [facility], [facility]. [address] [place] [address] 18986 Chloride Level May 19, 2019 8:35pm 105 mmol/L 100-112 [facility], [facility]. [address] [place] [address] 94879 Carbon Dioxide Level May 19 8:35pm 22 mEq/L 18-30 [facility], [address] [place] [address] [place] [address] Anion Gap May 19, 2019 8:35pm 15 mmol/L 8-11 [facility], [address] [place] [address] 70855 Blood Urea Nitrogen May 19 8:35pm 10 mg/dL 5-21 [facility], [address] [place] [address] 47530 Creatinine May 19, 2019 8:35pm 0.78 mg/dL 0.60-1.30 [facility], [address] [place] [address] 53390 Glomerular Filtration Rate Calc Ben manriquez 2019 [...] 15-29 ml/min Stage 5 = <15 ml/min [facility], [address] [place] [address] 93975 Glucose Level May 19, 2019 8:35pm 86 mg/dL 70-99 [facility], [address] [place] [address] 80196 Calcium Level May 19, 2019 8:35pm 10.2 mg/dL 8.6-10.5 [facility], [facility] [address] [place] [address] 29213 Total Bilirubin May 19, 2019 8:35pm 0.9 mg/dL 0.0-1.2 [facility], [address] [place] [address] 22125 Aspartate Amino Transf (AST/SGOT) [facility] 2019 8:35pm 23 U/L 6-37 [facility], [address] [place] [address] 84400 Alanine Aminotransferase (ALT/SGPT) May 19, 2019 8:35pm 32 U/L - [facility], [facility] [address] [place] [address] 81231 Troponin I May 19, 2019 8:35pm < 0.01 ng/mL 0.00-0.05 [facility], [facility] [address] [place] [address] 65810 Total Protein May 19, 2019 8:35pm 7.8 g/dL 6.4-8.2 [facility], [address] [facility] [address] Albumin May 19, 2019 8:35pm 4.0 g/dL 3.3-4.5 [facility], [address] [facility] [address] Albumin/Globulin Ratio May 19, 2019 8:35pm 1.1 0.7-2.0 [facility], [address] [facility] [address] Alkaline Phosphatase May 19 8:35pm 66 U/L 50-136 [facility] [address] [facility] [address] Health Concerns Health Concerns may be documented in an alternate section. Advance Directives Advance Directive Response Recorded Date/Time Advance Directive on File? No May 19, 2019 7:46pm Chief Complaint and Reason for Visit Chief Complaint Chest Pain Encounters Encounter Location(s) [place] [facility]/Admit Date Discharge/Depart Date Provider(s) Departed Emergency [facility]-Emergency Department May 19, 2019 6:43pm May [...] Insurance Providers Guarantor Maureen Bautista Address [address] [facility] [address] Contact Info. Home Phone: Payer Policy Id Coverage Id Subscriber's Name Subscriber Id Effective Date Expiration Date [facility] [employer] [id number] 1 [id number] Maureen Bautista [id number] Self Pay Self N/A Plan of Treatment Future Tests Future scheduled test information is unavailable Pending Tests Pending diagnostic test information is unavailable Future Visits Future appointment information is unavailable Referrals to Other Providers Reason for Referral Referral Start Date Provider Provider Conta ct Information Provider Address [facility] Future Procedures Future procedure information is [...]
== END 2019-06-03 01:17 | disposition home or self-care (01) ==
LOC: EDUNIT# 21:50 → ER FS 21:51
DX: R09.1 Pleurisy (principal); Z88.2 Allergy status to sulfonamides; Z88.8 Allergy status to other drugs, medicaments and biological substances; Z88.0 Allergy status to penicillin; Z88.1 Allergy status to other antibiotic agents; Z91.040 Latex allergy status
CPT/HCPCS: 36415; 71046; 80053; 83880; 85025; 85379; 96372

== ENCOUNTER → 2019-06-13 | Outpatient (CLI) | payer MEDICARE ==
[~2019-06-13] MED LIST changes: +ATOR10TA66 PO; +AZAT50TA PO; +DIPH-124 PO; +LEVO1TAB7 PO; +METO-351 PO; +ONDA8TAB15 PO; +OXYC-471 PO; +PRD10T PO; +PYRI50TA PO; +SODI650T PO; +VITAMIN D PO; +[UNRECOGNIZED DRUG - OTHER] PO
--- NOTE | 2019-06-13 09:37 | Diagnostic Imaging Report ---
PROCEDURE: CT abdomen and pelvis without contrast. TECHNIQUE: Multiple contiguous axial images were obtained through the abdomen and pelvis without the use of intravenous contrast. Auto Exposure Controls were utilized during the CT exam to meet ALARA standards for radiation dose reduction. INDICATION: Abdominal pain, Crohn's disease The lung bases are clear. The liver appears normal. The gallbladder surgically absent. Pancreas appears normal. Spleen is not enlarged. Kidneys and adrenals appear normal. Small bowel is not dilated. 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 The patient had a subtotal colectomy. The small bowel is not dilated. There are a few mesenteric lymph nodes but none are pathologically enlarged. There are no pathologic masses or fluid collections. IMPRESSION: Postsurgical changes. No acute abnormality seen in the abdomen or pelvis. Dictated by: Dictated on workstation # [id number]
--- NOTE | 2019-06-13 09:49 | Diagnostic Imaging Report ---
PROCEDURE: CT chest without contrast. TECHNIQUE: Multiple contiguous axial images were obtained through the chest without the use of intravenous contrast. Auto Exposure Controls were utilized during the CT exam to meet ALARA standards for radiation dose reduction. INDICATION: Persistent pleurisy. COMPARISON: There are no prior CT chest examinations available for comparison. FINDINGS: The plain film examination of the chest performed on 06/05/2019 failed to show any sign of an acute cardiopulmonary abnormality. On this exam there is a small 9.9 x 10.3 cm poorly defined area of increased density in the lingula. This finding could be secondary to a small focus of pneumonia/atelectasis or scar formation. In a patient of this age it would be unlikely that this finding is neoplastic in nature. Even so, I would recommend that a short-term (3 month) follow-up CT chest exam be obtained for further study. The lungs are otherwise clear. There is no sign of a pleural effusion. The heart size is within normal limits. There are no coronary artery calcifications noted. The aorta is not abnormally dilated. There is no mediastinal or hilar adenopathy. The thyroid gland is unremarkable. There is no obvious breast mass. The sections through the upper abdomen failed to show any sign of an acute abnormality. The liver is of lower density than usually seen and this appearance does suggest fatty metamorphosis. There has also been a prior cholecystectomy. The bone windows are unremarkable for a fracture or for a destructive lesion. IMPRESSION: 1. The small poorly defined area of increased density in the lingula is of uncertain etiology. Considerations and recommendations as above. 2. There is no acute cardiopulmonary abnormality noted. Dictated by: Dictated on workstation # [id number]
== END ==
LOC: RAD FS 08:44
PROVIDERS: ATTEND Nurse Practitioner Family
DX: K50.118 Crohn's disease of large intestine with other complication (principal); R07.89 Other chest pain; R09.1 Pleurisy; Z98.890 Other specified postprocedural states
CPT/HCPCS: 71250; 74176

== ENCOUNTER → 2019-09-18 | Outpatient (CLI) | payer MEDICARE ==
[2019-09-18 11:08] LABS: BUN/CREATININE RATIO 19; CARBON DIOXIDE 20 MMOL/L (21-32); CHLORIDE 102 MMOL/L (98-107); CREATININE SERUM 0.72 MG/DL (0.60-1.30); GFR ESTIMATED > 60; POTASSIUM 4.2 MMOL/L (3.6-5.0); SODIUM 139 MMOL/L (135-145)
[2019-09-18 11:09] LABS: ALANINE AMINOTRANSFERASE 26 U/L (0-55); ALBUMIN 4.3 GM/DL (3.2-4.5); ALKALINE PHOSPHATASE 72 U/L (40-136); BILIRUBIN,TOTAL 0.8 MG/DL (0.1-1.0); CALCIUM 9.9 MG/DL (8.5-10.1); GLUCOSE 102 MG/DL (70-105); TOTAL PROTEIN 7.6 GM/DL (6.4-8.2)
[2019-09-18 15:00] LABS: TRIGLYCERIDES 240 MG/DL (<150); VLDL CHOLESTEROL 48 MG/DL (5-40)
[2019-09-18 15:05] LABS: CHOLESTEROL 192 MG/DL (< 200)
[2019-09-18 15:06] LABS: HDL CHOLESTEROL 93 MG/DL (40-60)
== END ==
LOC: LAB FS 10:06
PROVIDERS: ATTEND Internal Medicine Cardiovascular Disease
DX: R00.0 Tachycardia, unspecified (principal); I51.89 Other ill-defined heart diseases; R07.89 Other chest pain; R00.2 Palpitations
CPT/HCPCS: 36415; 80053; 80061

== ENCOUNTER → 2019-11-20 | Outpatient (CLI) | payer MEDICARE ==
[~2019-11-20] MED LIST changes: +NF-SODBICA PO; -SODI650T PO
--- NOTE | 2019-11-20 15:07 | Diagnostic Imaging Report ---
EXAMINATION: Left shoulder at 12:18 p.m. INDICATION: Shoulder pain. FINDINGS: Two views were obtained. There are no prior studies available for comparison. There is no fracture, dislocation, or acute bony abnormality evident. The glenohumeral and acromioclavicular joints are fairly well maintained. The soft tissues are unremarkable. IMPRESSION: There is no evidence for an acute bony abnormality. Dictated by: Dictated on workstation # [id number]
== END ==
LOC: RAD FS 12:07
PROVIDERS: ATTEND Nurse Practitioner Family
DX: M25.512 Pain in left shoulder (principal)
CPT/HCPCS: 73030

== ENCOUNTER → 2021-01-06 | Outpatient (CLI) | payer MEDICARE ==
[~2021-01-06] MED LIST changes: -CIPR500T4 PO; +CIPR500T5 PO; +DIPH-1017 PO; -DIPH-124 PO; -OXYC-471 PO; +OXYC1TAB11 PO
--- NOTE | 2021-01-06 14:31 | Diagnostic Imaging Report ---
PROCEDURE: Pelvic comp/transvaginal sonogram. TECHNIQUE: Complete transabdominal and transvaginal pelvic ultrasound was performed. In addition, limited pelvic Doppler was performed. INDICATION: Left lower quadrant pain. Uterus measures 7.2 x 3.3 x 3.1 cm. There is some fluid in the endocervical canal. No myometrial mass is detected. Endometrium is 5 mm in thickness. The right ovary measures 3.4 x 1.6 x 2.1 cm and the left ovary measures 3.9 x 1.8 x 1.7 cm. There are follicles within both ovaries. There is blood flow to both ovaries. No adnexal mass or free fluid is detected. IMPRESSION: Essentially unremarkable transabdominal and transvaginal pelvic ultrasound. Dictated by: Dictated on workstation # [id number]
== END ==
LOC: RAD 13:00
PROVIDERS: ATTEND Obstetrics & Gynecology
DX: R10.32 Left lower quadrant pain (principal)
CPT/HCPCS: 76830; 76856

== ENCOUNTER 2021-07-06 11:00 | Outpatient (CLI) | payer MEDICARE ==
[~2021-07-06 11:00] MED LIST changes: +ONDA-106 PO; -ONDA8TAB15 PO
== END 2021-07-06 11:21 ==
LOC: SLEEP 11:00
PROVIDERS: ATTEND Internal Medicine Cardiovascular Disease
DX: G47.33 Obstructive sleep apnea (adult) (pediatric) (principal); I10 Essential (primary) hypertension
CPT/HCPCS: G0399

== ENCOUNTER → 2021-08-17 | Outpatient (CLI) | payer MEDICARE ==
[~2021-08-17] VITALS: Ht 162 cm; Wt 120.0 kg
[~2021-08-17] MED LIST changes: +CATHETER FLUSH 10 ML SYR IVP PRN
[2021-08-17 12:55] VITALS: BP 146/95
--- NOTE | 2021-08-17 14:49 | Cardiology Stress Test Report ---
Stress Test Report Date of Procedure/Referring: Date of Procedure: Aug 17, 2021 PCP Jean Ryan MD Admitting Physician [facility] Indications: HTN Baseline Heart Rate: 95 Baseline Blood Pressure: Blood Pressure Systolic: 146 Blood Pressure Diastolic: 95 Vital Signs Date Time Temp Pulse Resp B/P (MAP) Pulse Ox O2 Delivery O2 Flow Rate FiO2 08/17/21 12:55 95 146/95 (112) Baseline Vital Signs Vital Signs Date Time Temp Pulse Resp B/P (MAP) Pulse Ox O2 Delivery O2 Flow Rate FiO2 08/17/21 12:55 95 146/95 (112) Baseline EKG: Baseline EKG: NSR Summary: After explaining the procedure and details to the patient, she signed the consent and was brought to the stress nuclear laboratory. Patient exercised on standard Chin protocol, EKG, heart rate and blood pressure were monitored continuously, resting and stress doses of radio tracer were injected, imaging was acquired and reviewed in the short axis, horizontal long axis and vertical long axis views Patient was able to exercise for a total of 4.30 minutes on Chin protocol, METs 6.4 Maximum heart rate 169 Maximum blood pressure 166/104 Stress EKG, Minimal nondiagnostic changes Recovery EKG, Return to baseline TID: 1.05 SSS: 5 SDS: 3 EF: 63 Conclusion: 1. Fair exercise tolerance for 4 minutes and 30 seconds on standard Chin protocol, 6.4 METS achieving 90% of maximal expected heart rate 2. Appropriate heart rate and blood pressure response to exercise return to baseline during recovery 3. Nondiagnostic EKG changes with exercise return to baseline during recovery 4. Reversible ischemia involving the mid to apical anterior wall and anterolateral wall 5. Normal left ventricular size, EF 63% Copy Copies To 1: [facility] JEAN RYAN MD Aug 17, 2021 14:49
== END ==
LOC: CARD 11:30
PROVIDERS: ATTEND Internal Medicine Cardiovascular Disease
DX: I10 Essential (primary) hypertension (principal); I25.10 Atherosclerotic heart disease of native coronary artery without angina pectoris
CPT/HCPCS: 78452; 93017; 93306; A9502

== ENCOUNTER 2021-08-31 11:00 | Day surgery (SDC) | payer MEDICARE ==
[~2021-08-31] VITALS: Ht 162.6 cm; Wt 120.2 kg
[2021-08-31] VITALS (10 sets, daily range): BP systolic 110–122; BP diastolic 63–77
[2021-08-31 09:49] LABS: HEMATOCRIT 41 % (35-52); HEMOGLOBIN 13.4 g/dL (11.5-16.0); MEAN CORPUSCULAR HEMOGLOBIN 30 pg (25-34); MEAN CORPUSCULAR HGB CONC 33 g/dL (32-36); MEAN CORPUSCULAR VOLUME 92 fL (80-99); MEAN PLATELET VOLUME 9.5 fL (9.0-12.2); PLATELET COUNT 350 10^3/uL (130-400); WHITE BLOOD COUNT 11.4 10^3/uL (4.3-11.0)
[2021-08-31 09:50] LABS: BILIRUBIN,URINE NEGATIVE (NEGATIVE); CLARITY,URINE CLEAR; COLOR,URINE YELLOW; GLUCOSE, URINE (UA) NEGATIVE (NEGATIVE); KETONES,URINE NEGATIVE (NEGATIVE); LEUKOCYTE ESTERASE ,URINE NEGATIVE (NEGATIVE); NITRITE,URINE NEGATIVE (NEGATIVE); PROTEIN,URINE TRACE (NEGATIVE)
[2021-08-31 09:53] LABS: HCG,QUALITATIVE URINE NEGATIVE (NEGATIVE)
[2021-08-31 09:57] LABS: ALBUMIN 4.2 GM/DL (3.2-4.5); BACTERIA,URINE MODERATE /HPF; POTASSIUM 3.9 MMOL/L (3.6-5.0)
[2021-08-31 09:58] LABS: CALCIUM 9.6 MG/DL (8.5-10.1)
[2021-08-31 10:00] LABS: INR 0.9 (0.8-1.4); PROTHROMBIN TIME PATIENT 12.8 SEC (12.2-14.7); TOTAL PROTEIN 7.5 GM/DL (6.4-8.2)
[2021-08-31 10:01] LABS: BILIRUBIN,TOTAL 0.7 MG/DL (0.1-1.0)
[2021-08-31 10:03] LABS: CREATININE SERUM 0.76 MG/DL (0.60-1.30)
--- NOTE | 2021-08-31 10:11 | Diagnostic Imaging Report ---
INDICATION: Abnormal stress test, pre-catheterization Frontal chest obtained at 0954 a.m. and compared to 06/05/2019. Heart is borderline in size. Mediastinal silhouette unremarkable. The lungs are clear. There is no pneumothorax or pleural fluid. IMPRESSION: Borderline heart size with no acute process in the chest. Dictated by: Dictated on workstation # [id number]
--- NOTE | 2021-08-31 10:32 | Conscious Sedation/ASA ---
Conscious Sedation Pre-Proced Time 10:31 ASA Score 3 For ASA 3 and 4: Consider anesthesia and medical clearance. Also, for patients with a history of failed moderate sedation consider anesthesia. Airway Lungs Heart ASA score ASA 1: a normal healthy patient ASA 2: a patient with a mild systemic disease (mid diabetes, controlled hypertension, obesity x ASA 3: a patient with a severe systemic disease that limits activity (angina, COPD, prior Myocardial infarction) ASA 4: a patient with an incapacitating disease that is a constant threat to life (CHF, renal failure) ASA 5: a moribund patient not expected to survive 24 hrs. (ruptured aneurysm) ASA 6: a declared brain- patient whose organs are being harvested. For emergent operations, add the letter E after the classification Mallampati Classification Grade 3 Sedation Plan Analgesia, Amnesia, Plan communicated to team members, Discussed options with patient/fam, Discussed risks with patient/fam The patient is an appropriate candidate to undergo the planned procedure, sedation, and anesthesia. The patient immediately re-assessed prior to indication. JEAN ARMENDARIZ MD August 31, 2021 10:31
[~2021-08-31 11:00] MED LIST changes: +ATOR10TA PO; -CATHETER FLUSH 10 ML SYR IVP PRN; +DILT-27 PO; +FLUT9.9S NSEACH; +GABA300C PO; +HEParin (CATH LAB) 2,000 ML IV ONE; +HEParin 1000 UNIT/ML (10ML VIAL) FOR BOLUS ONE; +LIDOCAINE 1% INJ 20 ML VIAL ONE; +METH-731 PO; +METO50TA7 PO; +MIDAZOLAM 5 MG/5 ML (VERSED) VIAL ONE; +NITRO DRIP 25000 MCG/D5W 250 ML IV ONE; +NS IV 1000 ML 1,000 ML IV SCH; +NS IV 1000 ML 1,000 ML ONE; +PANT40TA52 PO; +VERAPAMIL 5 MG/2 ML (CALAN) VIAL IV ONE; +VITAMIN D3 2000 MG PO; +diphenhydrAMINE 50 MG/ML INJ (BENADRYL) ONE; +fentaNYL INJ 100 MCG/2 ML AMP ONE; +methylPREDNISolone 125 MG (Solu-MEDROL) VIAL ONE
--- NOTE | 2021-08-31 11:03 | Discharge Inst-Post CATH ---
Discharge Inst-CATH/EP Problems Reviewed?: Yes Post Cardiac Cath/EP D/C Inst Follow Up/Plan Appointment with Dr. Ryan's office in 2 to 4 weeks <b>CARDIAC CATH/EP PROCEDURE DISCHARGE INSTRUCTIONS</b> ACTIVITY * Go Home directly and rest. * Limit activity of the leg (or wrist if it was used) for 7 days including aer obics, swimming, jogging, bicycling, etc. * Restrict stair-climbing for 7 days if possible, if not, climb up with your non-cath leg, then bring together on the same step. * Avoid lifting, pushing, pulling or excessive movement of the affected extremi ty for 7 days. * Customary sexual activity may be resumed after 2 days-use caution not to use a position that strains or causes pain to the affected extremity. * No driving for 24 hours. * NO SMOKING. * Avoid straining for bowel movements for 7 days. * Gentle walking on level ground is allowed. * Returning to work will depend on the type of procedure and the results. Your doctor will discuss this with you. CALL YOUR DOCTOR FOR ANY OF THE FOLLOWING: *If bleeding from the puncture site occurs- Apply gentle pressure to site with clean cloth and call your doctor or EMS. * If a knot or lump forms under the skin, increases in size, or causes pain. * If bruising appears to be worsening or moving further down your leg instead of disappearing. * Temperature above 101 F. CARE OF YOUR GROIN INCISION; * Bruising or purple discoloration of the skin near the puncture site is common. * You may shower only, no bathtub bathing for 5 days. Be careful to avoid slipping as your leg may feel stiff. * If a closure device was used on your femoral artery, please see the attached guide regarding care of the device and your leg. * Leave dressing on FOR 24 hours. CARE OF YOUR WRIST INCISION; * Bruising or purple discoloration of the skin near the puncture site is common. * You may shower. * DO NOT submerge wrist. * Leave dressing on FOR 24 hours. JEAN RYAN MD August 31, 2021 11:03
--- NOTE | 2021-08-31 11:05 | Cardiac Cath Report ---
Cardiac Cath Report Physician (s)/Nurse Licensed Practical (s) Physician JEAN ARMENDARIZ MD Pre-Procedure Diagnosis Pre-Procedure Diagnosis: Coronary artery disease Post-Procedure Note Procedure Start Date: August 31, 2021 Name of Procedure: Left heart catheterization Findings/Procedure Note PROCEDURE NOTE: 35-year-old lady with history of hypertension, hyperlipidemia and diabetes mellitus, has been having chest pain, had an abnormal stress test, scheduled for cardiac catheterization possible PTCA. After explaining the procedure to the patient, all pros and cons were explained, all questions were answered. The patient signed the consent and then she was placed on the cardiac catheterization laboratory. Groin was prepped SL fashion local anesthesia was used. Sheath placed in the right radial artery, [place] catheter was advanced to the left ventricular cavity, pressure was measured, pullback LV to aorta was done, engage the right and left coronary system, angiogram was done. At the end of the procedure the sheath was removed. Vascular band was used FINDINGS: Hemodynamics LV 150/8, end-diastolic pressure of 8 Aorta 130/82 mean of 103 ANATOMY: Left Main is free of obstructive disease Left Anterior Descending is free of obstructive disease Left Circumflex has mild disease nonobstructive disease Right Coronary Artery has mild disease nonobstructive disease LV Gram was not done, pressure was measured CONCLUSION: 1. Mild coronary artery disease, no significant obstructive coronary disease. 2. Normal left ventricular end-diastolic pressure. Noted elevated systolic pressure DISCUSSION AND RECOMMENDATION: Abnormal stress test is probably due to extracardiac attenuation. Anesthesia Type: Conscious Sedation Estimated blood loss (mL): 10 ml Contrast Amount: 37 ml Total Radiation Dose: 369 mGy Post-Procedure Diagnosis Post-operative diagnosis: Chest pain Coronary artery disease Hypertension Hyperlipidemia JEAN ARMENDARIZ MD August 31, 2021 11:05
[2021-08-31] MEDS ORDERED: NS IV 1000 ML 1,000 ML IV SCH (11:15)
== END 2021-08-31 13:43 | disposition home or self-care (01) ==
LOC: CATH 11:00 → SDC 11:20 → CATH 13:43
PROVIDERS: ATTEND Internal Medicine Cardiovascular Disease
DX: I25.10 Atherosclerotic heart disease of native coronary artery without angina pectoris (principal); I10 Essential (primary) hypertension; E78.2 Mixed hyperlipidemia; R94.39 Abnormal result of other cardiovascular function study; R00.0 Tachycardia, unspecified; K50.90 Crohn's disease, unspecified, without complications; K21.9 Gastro-esophageal reflux disease without esophagitis; M54.9 Dorsalgia, unspecified; R25.2 Cramp and spasm; E66.01 Morbid (severe) obesity due to excess calories; G47.30 Sleep apnea, unspecified; Z68.42 Body mass index [BMI] 45.0-49.9, adult; Z79.899 Other long term (current) drug therapy
CPT/HCPCS: 71045; 80053; 80061; 81000; 84703; 85027; 85610; 85730; 87081; 87088; 93005; 93458; C1894; 36415

== ENCOUNTER 2021-09-01 10:13 | Emergency (ER) | payer MEDICARE ==
[~2021-09-01] VITALS: Ht 162.5 cm; Wt 120.6 kg
[~2021-09-01 10:13] MED LIST changes: -HEParin (CATH LAB) 2,000 ML IV ONE; -HEParin 1000 UNIT/ML (10ML VIAL) FOR BOLUS ONE; -LIDOCAINE 1% INJ 20 ML VIAL ONE; -MIDAZOLAM 5 MG/5 ML (VERSED) VIAL ONE; -NITRO DRIP 25000 MCG/D5W 250 ML IV ONE; -NS IV 1000 ML 1,000 ML IV SCH; -NS IV 1000 ML 1,000 ML ONE; -VERAPAMIL 5 MG/2 ML (CALAN) VIAL IV ONE; -diphenhydrAMINE 50 MG/ML INJ (BENADRYL) ONE; -fentaNYL INJ 100 MCG/2 ML AMP ONE; -methylPREDNISolone 125 MG (Solu-MEDROL) VIAL ONE
--- NOTE | 2021-09-01 10:36 | ED General ---
General Chief Complaint: Head/Cervical Problems Stated Complaint: VOMITING; HEADACHE History of Present Illness Date Seen by Provider: September 01, 2021 Time Seen by Provider: 10:31 Initial Comments 35-year-old female with PMH of ulcerative colitis with colostomy bag/recent cath done yesterday due to an abnormal stress test/migraines, is here with complaints of headache which is left-sided and began today. Patient typically gets migraines right before her period. Denies sensory loss, weakness, fever, neck pain or stiffness, chest pain. Patient has associated nausea Allergies and Home Medications Allergies Coded Allergies: Iodine and Iodide Containing Produc (Verified Allergy, Unknown, 10/30/18) Sulfa (Sulfonamide Antibiotics) (Verified Allergy, Unknown, 10/30/18) amoxicillin (Verified Allergy, Unknown, 10/30/18) cephalexin (Verified Allergy, Unknown, 10/30/18) clindamycin (Verified Allergy, Unknown, 10/30/18) latex (Verified Allergy, Unknown, 10/30/18) morphine (Verified Allergy, Unknown, 10/30/18) neomycin (Verified Allergy, Unknown, 10/30/18) shellfish derived (Verified Allergy, Unknown, 10/30/18) Uncoded Allergies: paper tape (Allergy, Unknown, rash, 04/23/17) Patient Home Medication List Home Medication List Reviewed: Yes Atorvastatin Calcium (Lipitor) 10 Mg Tablet, 10 MG PO HS, (Reported) Entered as Reported by: PATTIE ABDI on 08/31/21 09 Azathioprine (Imuran) 50 Mg Tablet, 50 MG PO DAILY, (Reported) Entered as Reported by: PATTIE ABDI on 08/31/21 09 Cyanocobalamin (Cyanocobalamin Injection) 1,000 Mcg/Ml Inj, 1,000 MCG IJ monthly, (Reported) Entered as Reported by: THERESE THOMPSON on 04/23/17 0945 Diltiazem HCl (Diltiazem 24Hr ER) 120 Mg Cap.er.24h, 120 MG PO DAILY, (Reported) Entered as Reported by: PATTIE ABDI on 08/31/21 09 Diphenhydramine HCl (Diphenhydramine HCl) 12.5 Mg/5 Ml Liquid, 25 MG PO Q6H PRN for NASUEA/RASH, (Reported) Entered as Reported by: BHARTI TIAN on 06/06/19844 Fluticasone Propionate (Flonase Allergy Relief) 50 Mcg/Actuation [place].susp, 2 SPRAY NSEACH DAILY, (Reported) Entered as Reported by: PATTIE ABDI on 08/31/21955 Gabapentin (Neurontin) 300 Mg Capsule, 300 MG PO TID, (Reported) Entered as Reported by: PATTIE ABDI on 08/31/21955 Levonorgestrel-Ethin Estradiol (Lessina-28 Tablet) 1 Each Tablet, 1 TAB PO HS, (Reported) Entered as Reported by: BHARTI TAIN on 06/06/19844 Methocarbamol (Methocarbamol) 500 Mg Tablet, 500 MG PO HS, (Reported) Entered as Reported by: PATTIE ABDI on 08/31/21955 Metoprolol Succinate (Metoprolol Succinate) 50 Mg Tab.er.24h, 50 MG PO BID, (Reported) Entered as Reported by: PATTIE ABDI on 08/31/21955 Ondansetron HCl (Ondansetron HCl) 8 Mg Tablet, 8 MG PO TID PRN for NAUSEA/VOMITING-1ST LINE, (Reported) Entered as Reported by: BHARTI TIAN on 06/06/19844 Oxycodone HCl/Acetaminophen (Percocet 5-325 mg Tablet) 1 Each Tablet, 1 TAB PO FIVE TIMES DAILY PRN for PAIN-MODERATE (5-7), (Reported) Entered as Reported by: PATTIE ABDI on 08/31/21955 Pantoprazole Sodium (Pantoprazole Sodium) 40 Mg Tablet.dr, 40 MG PO DAILY, (Reported) Entered as Reported by: PATTIE ABDI on 08/31/21955 Pyridoxine HCl (Vitamin B-6) 50 Mg Tablet, 50 MG PO HS, (Reported) Entered as Reported by: BHARTI TIAN on 06/06/19844 [Vitamin D3 2000 Mg] , 2,000 MG PO DAILY, (Reported) Entered as Reported by: PATTIE ABDI on 08/31/21955 Discontinued Medications Atorvastatin Calcium (Atorvastatin Calcium) 10 Mg Tablet, 10 MG PO HS, (Reported) Discontinued Reason: No Longer Taking Entered as Reported by: BHARTI TIAN on 06/06/19844 Azathioprine (Azathioprine) 50 Mg Tablet, 50 MG PO HS, (Reported) Discontinued Reason: No Longer Taking Entered as Reported by: BHARTI TIAN on 06/06/19 08 Metoprolol Succinate (Toprol Xl) 25 Mg Tab.er.24h, 25 MG PO DAILY Discontinued Reason: Duplicate Order Prescribed by: JEAN ARMENDARIZ on 06/06/19 162 Omeprazole Magnesium (Prilosec Otc) 20 Mg Tablet.dr, 40 MG PO DAILY, (Reported) Discontinued Reason: No Longer Taking Entered as Reported by: BHARTI TIAN on 06/06/19844 Oxycodone HCl/Acetaminophen (Oxycodone-Acetaminophen 5-325) 1 Each Tablet, 1 TAB PO QID PRN for PAIN-MODERATE (5-7), (Reported) Discontinued Reason: No Longer Taking Entered as Reported by: BHARTI TIAN on 06/06/19844 Prednisone (Prednisone) 10 Mg Tab, PO UD, (Reported) Discontinued Reason: No Longer Taking Entered as Reported by: BHARTI TIAN on 06/06/19844 Sodium Bicarbonate (Sodium Bicarbonate) 650 Mg Tablet, 650 MG PO BID, (Reported) Discontinued Reason: No Longer Taking Entered as Reported by: BHARTI TIAN on 06/06/19 08 [Vitamin D3+K2 10,000] , 1 TAB PO Sa, (Reported) Discontinued Reason: No Longer Taking Entered as Reported by: BHARTI TIAN on 06/06/19844 Review of Systems Review of Systems Constitutional: no symptoms reported EENTM: no symptoms reported Respiratory: no symptoms reported Cardiovascular: no symptoms reported Gastrointestinal: no symptoms reported Musculoskeletal: no symptoms reported Skin: no symptoms reported Psychiatric/Neurological: Headache Hematologic/Lymphatic: No Symptoms Reported Immunological/Allergic: no symptoms reported Past Htftltl-Pddhdf-Mrcdav Hx Seasonal Allergies Seasonal Allergies: No Past Medical History Surgeries: Yes (colectomy/ostomy bag) Abdominal, Adenoidectomy, Appendectomy, Gallbladder, Tonsillectomy Respiratory: No Cardiac: Yes High Cholesterol Neurological: No Genitourinary: Yes Kidney Stones Gastrointestinal: Yes Gastroesophageal Reflux, Crohns Disease Musculoskeletal: Yes Fibromyalgia Endocrine: No (Vitamin B12 deficiency) HEENT: No Cancer: No Psychosocial: Yes Anxiety, Depression Integumentary: No Blood Disorders: Yes (anemia) Family Medical History Patient reports no known family medical history. Physical Exam Vital Signs Vital Signs - First Documented 09/01/21 10:25 Temp 36.4 Pulse 82 Resp 16 B/P (MAP) 137/85 (102) Pulse Ox 96 O2 Delivery Room Air Capillary Refill : Height, Weight, BMI Height: 5'4.00" Weight: 267lbs. 0.0oz. 121.791001kb; 45.46 BMI Method:Stated General Appearance: No Apparent Distress, WD/WN HEENT: PERRL/EOMI Neck: Full Range of Motion, Normal Inspection, Non Tender, Supple Respiratory: Chest Non Tender, Lungs Clear, Normal Breath Sounds Cardiovascular: Regular Rate, Rhythm, No Edema, Normal Peripheral Pulses Gastrointestinal: Normal Bowel Sounds, Non Tender, Soft Extremity: Normal Inspection, Normal Range of Motion Neurologic/Psychiatric: Alert, Oriented x3, No Motor/Sensory Deficits, Normal Mood/Affect Skin: Normal Color Progress/Results/Core Measures Suspected Sepsis SIRS Temperature: Pulse: Respiratory Rate: Blood Pressure / Mean: Results/Orders Lab Results Laboratory Tests Test 09/01/21 11:33 Range/Units Urine Color DARK YELLOW Urine Clarity CLOUDY Urine pH 6.0 5-9 Urine Specific [place] >=1.030 1.016-1.022 Urine Protein NEGATIVE NEGATIVE Urine Glucose (UA) NEGATIVE NEGATIVE Urine Ketones NEGATIVE NEGATIVE Urine Nitrite NEGATIVE NEGATIVE Urine Bilirubin NEGATIVE NEGATIVE Urine Urobilinogen 0.2 < = 1.0 MG/DL Urine Leukocyte Esterase NEGATIVE NEGATIVE Urine RBC (Auto) 1+ H NEGATIVE Urine RBC 5-10 H /HPF Urine WBC 5-10 H /HPF Urine Squamous Epithelial Cells 10-25 H /HPF Urine Crystals NONE /LPF Urine Bacteria MODERATE H /HPF Urine Casts NONE /LPF Urine Mucus MODERATE H /LPF Urine Culture Indicated YES My Orders Orders - SILVIANO ADKINS MD Ketorolac Injection (Toradol Injection) (09/01/21 10:45) Metoclopramide Injection (Reglan Injecti (09/01/21 10:39) Diphenhydramine Injection (Benadryl Inje (09/01/21 10:45) Ed Iv/Invasive Line Start (09/01/21 10:39) Ns Iv 1000 Ml (Sodium Chloride 0.9%) (09/01/21 10:45) Ua Culture If Indicated (09/01/21 10:39) Urine Culture (09/01/21 11:33) Medications Given in ED Current Medications Medications Dose Ordered Sig/Adry Route Start Time Stop Time Status Last Admin Dose Admin Diphenhydramine HCl 25 mg ONCE ONCE IVP 09/01/21 10:45 09/01/21 10:46 DC 09/01/21 11:00 25 MG Ketorolac Tromethamine 15 mg ONCE ONCE IVP 09/01/21 10:45 09/01/21 10:46 DC 09/01/21 11:00 15 MG Vital Signs/I&O 09/01/21 10:25 Temp 36.4 Pulse 82 Resp 16 B/P (MAP) 137/85 (102) Pulse Ox 96 O2 Delivery Room Air Capillary Refill : Progress Note : Progress Note 1. MIGRAINE: - Benadryl 25mg iv/ Reglan 10mg iv/ Toradol 15mg iv STAT - NS IVF 1L bolus - UA negative for LE and nitrites - Advised adequate hydration - F/u with PCP in the next 7 days - Pt symptoms improved after treatment Departure Impression Primary Impression: Migraine Qualified Codes: G43.019 - Migraine without aura, intractable, without status migrainosus Disposition: HOME, SELF-CARE Condition: Stable Departure-Patient Inst. Referrals: BHARTI MARTINEZ APRN (PCP) Primary Care Physician [facility] (Family) Primary Care Physician Patient Instructions: Migraines (DC) Add. Discharge Instructions: Follow up with PCP in 3 to 7 days Adequate hydration advised All discharge instructions reviewed with patient and/or family. Voiced understanding. SILVIANO ADKINS MD September 01, 2021 10:36
[2021-09-01] MEDS ORDERED: METOCLOPRAMIDE INJ 10 MG/2 ML (REGLAN) IVP STA (10:39)
[2021-09-01] MEDS ORDERED: NS IV 1000 ML 1,000 ML IV SCH (10:45)
[2021-09-01] MEDS ORDERED: KETOROLAC 30 MG/ML VIAL IVP ONE (10:45)
[2021-09-01] MEDS ORDERED: diphenhydrAMINE 50 MG/ML INJ (BENADRYL) IVP ONE (10:45)
[2021-09-01 11:39] LABS: BILIRUBIN,URINE NEGATIVE (NEGATIVE); CLARITY,URINE CLOUDY; GLUCOSE, URINE (UA) NEGATIVE (NEGATIVE); KETONES,URINE NEGATIVE (NEGATIVE); LEUKOCYTE ESTERASE ,URINE NEGATIVE (NEGATIVE); NITRITE,URINE NEGATIVE (NEGATIVE); PROTEIN,URINE NEGATIVE (NEGATIVE)
[2021-09-01 11:46] LABS: BACTERIA,URINE MODERATE /HPF
[2021-09-01 11:47] LABS: COLOR,URINE DARK YELLOW
[2021-09-01 12:48] VITALS: BP 138/80
== END 2021-09-01 12:49 | disposition home or self-care (01) ==
LOC: EDUNIT# 10:13 → ER FS 10:14
DX: G43.019 Migraine without aura, intractable, without status migrainosus (principal); Z87.19 Personal history of other diseases of the digestive system; Z93.3 Colostomy status; Z95.9 Presence of cardiac and vascular implant and graft, unspecified
CPT/HCPCS: 81000; 87088